=== PATIENT | female | born 1965 | race Caucasian/White ===

== ENCOUNTER 2023-10-10 08:36 | Emergency (ER) | payer MEDICARE, SELFPAY ==
[2023-10-10 08:36] VITALS: BP 197/96; PULSE 75; RESP 18; TEMP 37; O2SAT 95; BMI 31.6
--- NOTE | 2023-10-10 08:45 | PC.NURSE ---
Dr. Gonzalez at BS for pt eval
--- NOTE | 2023-10-10 08:50 | PC.NURSE ---
pt reports recently moving here and is unable to tell us much about her health history or medications she takes. er aware.
[2023-10-10 09:02] LABS: Basophils % 0.5 % (0.1-2.0); Eosinophils # 0.2 K/mm3 (0.0-0.4); Eosinophils % 2.9 % (0.1-12.0); Hematocrit 44.2 % (37.0-47.0); Hemoglobin 14.8 g/dL (12.2-16.2); Lymphocytes # 1.3 K/mm3 (0.7-4.5); Lymphocytes % 22.4 % (10-50); Mean Corpuscular HGB Conc 33.5 g/dL (31.8-35.4); Mean Corpuscular Hemoglobin 27.3 pg (27.0-31.2); Mean Corpuscular Volume 81.4 fl (81-99); Monocytes # 0.3 K/mm3 (0.1-1.0); Monocytes % 5.6 % (1.7-9.3); Neutrophils % 68.5 % (37.0-80.0); Platelet Count 206 K/mm3 (142-424); Red Blood Count 5.43 M/mm3 (4.20-5.40); Red Cell Distribution Width 15.2 % (11.5-17.5); White Blood Count 5.8 K/mm3 (4.8-10.8)
[2023-10-10 09:10] LABS: Alanine Aminotransferase 25 U/L (12-78); Alkaline Phosphatase 67 U/L (38-126); Aspartate Amino Transferase 31 U/L (14-36); Bilirubin,Total 0.5 mg/dl (0.2-1.3); Blood Urea Nitrogen 13 mg/dl (7-17); Carbon Dioxide 26 mmol/L (22.0-30.0); Chloride 104 mmol/L (98-107); Creatinine Clearance Estimated 100 mL/min (50-200); Estimated Glomerular Filt Rate 65 ml/min (>60); GFR (African American) 78 ML/MIN (>60)
[2023-10-10 09:13] LABS: Albumin Level 4.4 g/dl (3.5-5.0); Albumin/Globulin Ratio 1.5 (1.1-1.8); Anion Gap 12.3 mEq/L (5-15); Calcium 8.6 mg/dl (8.4-10.2); Glucose 179 mg/dl (74-100); Potassium 4.3 mmoL/L (3.5-5.1); Sodium 138 mmol/L (136-145); Total Protein,Serum 7.4 g/dl (6.3-8.2)
[2023-10-10 09:16] LABS: C-Reactive Protein 10.2 mg/L (0-4)
--- NOTE | 2023-10-10 09:17 | HMH.EDGENADL ---
Discharge Plan Disposition Patient Disposition: Home, Self-Care Chief Complaint: PAIN Referrals Follow up/Referrals: Provider,MD Christopher [Primary Care Provider] - See instructions Fermin Kowalski MD [Staff Physician] - See instructions Activity Restrictions/Add. Instructions Additional Instructions/Restrictions: Contact Dr. Kowalski for information regarding rectal scope. Until that time, take 1 capful of MiraLAX (polyethylene glycol) daily until having stools the consistency of toothpaste. Call your family doctor to establish care for this visit to the emergency department and schedule follow-up within 48 hours to ensure improvement. If you have any worsening of your condition or any other concerning signs or symptoms, return to the emergency department or your primary care doctor for further evaluation. Clinical Impressions Clinical Impression: Rectal bleed Discharge ED Provider: Jaime Gonzalez General Adult HPI General Chief complaint: PAIN Stated complaint: pain Time Seen by Provider: 10/10/23 08:41 Mode of Arrival: Ambulatory Source of Information: Patient Limitations: No Limitations Description of Symptoms (Recalled from ER Triage Doc. by RN): pt reports rectal bleeding that started yesterday, along with pain in her rectum that has been gradually getting worse, and unable to have a BM for 4 days, states she has taken several medications to try to help with no success History of Present Illness HPI narrative: 58-year-old female with history of left-sided CVA with residual expressive aphasia currently on Eliquis presenting with rectal bleeding. With help of licensed club manager at bedside, history obtained. Patient has been having rectal bleeding for about 5 days. Not getting better, not getting worse. She is also having pain with bowel movements since that time. Having minimal pain in the absence of having bowel movement, generally pain is with bowel movements. She is having small, hard stools, but still able to have bowel movements. No fevers, chills, vomiting, or abdominal pain. States that rectal bleeding is not coming down clots, it is dark red, not melena. No lightheaded, chest pain, shortness of breath, syncope, or any other concerns. Related Data Allergies Allergy/AdvReac Type Severity Reaction Status Date / Time No Known Allergies Allergy Verified 10/10/23 08:49 [facility] Disclaimer: The information contained in this section may have been updated after the patient was seen, as this information can be updated by other users. Medical History (Updated 10/10/23 @ 10:03 by Jaime Gonzalez MD) 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, type 2 Heart failure Hypertension Kidney disease Social History Smoking Status: Never smoker alcohol intake: never current occupational status: unemployed Travel in the last 8 weeks: None ROS Obtained: Yes All systems reviewed & no additional complaints except as documented Physical Exam General General appearance: alert and in no apparent distress Head Head exam: atraumatic and normocephalic Eye Eye exam: Present normal appearance, PERRL and EOMI ENT ENT exam: Present mucous membranes moist Neck Neck exam: Present normal inspection, full ROM and trachea midline Respiratory Respiratory exam: Present normal lung sounds bilaterally; Absent respiratory distress, wheezes, stridor, accessory muscle use or prolonged expiratory phase Cardiovascular Cardiovascular exam: Present regular rate and normal rhythm Abdominal Exam Abdominal exam: Present soft; Absent distention, tenderness, guarding, rebound, rigidity or normal bowel sounds Rectal Exam Rectal exam: Present heme (-) stool (Grossly negative, Hemoccult sent), hemorrhoids (Internal hemorrhoid), tenderness and other (No evidence of fluctuance. No obvious fissure.) Extremities Exam Extremities exam: Absent edema Neurological Exam Neurological exam: Present alert, oriented X3, CN II-XII intact and normal gait; Absent motor sensory deficit Skin Skin exam: Present warm and dry; Absent diaphoresis or erythema Medical Decision Making Medical Records Medical records reviewed: Yes I reviewed the patient's medical records. Chandan Inquiry Pt receiving controlled substance: No Chandan was queried for this patient: No Vital Signs: 10/10/23 08:36 10/10/23 09:19 10/10/23 09:31 Temperature 98.6 F Temperature Source Oral Pulse Rate 59 L 66 Pulse Rate [Left Radial] 75 Respiratory Rate 18 18 20 Blood Pressure 155/92 H 150/90 H Blood Pressure [Right Arm] 197/96 H Blood Pressure Mean 113 110 Blood Pressure Mean [Right Arm] 129 Blood Pressure Source [Right Arm] Automatic Cuff Blood Pressure Position [Right Arm] Sitting 02 Sat by Pulse Oximetry 95 97 95 Oxygen Delivery Method Room Air Lab Data Lab Results 10/10/23 08:43: WBC 5.8, RBC 5.43 H, Hgb 14.8, Hct 44.2, MCV 81.4, MCH 27.3, MCHC 33.5, RDW 15.2, Plt Count 206, MPV 8.0, Neut % (Auto) 68.5, Lymph % (Auto) 22.4, [place] % (Auto) 5.6, Eos % (Auto) 2.9, Baso % (Auto) 0.5, Neut # (Auto) 4.0, Lymph # (Auto) 1.3, [place] # (Auto) 0.3, Eos # (Auto) 0.2, Baso # (Auto) 0.0, ESR 19, Sodium 138, Potassium 4.3, Chloride 104, Carbon Dioxide 26, Anion Gap 12.3, BUN 13, Creatinine 0.90, Estimated Creat Clear 100, Estimated GFR 65, Est GFR ( Amer) 78, Glucose 179 H, Calcium 8.6, Total Bilirubin 0.5, AST 31, ALT 25, Alkaline Phosphatase 67, C-Reactive Protein 10.2 H, Total Protein 7.4, Albumin 4.4, Globulin 3.0, Albumin/Globulin Ratio 1.5 10/10/23 09:01: Stool Occult Blood Negative 10/10/23 08:43 10/10/23 08:43 Orders (Tests/Meds): ORDERS Category Date Time Status CBC w/Auto Diff [Complete Blood Count Auto Diff] Stat Lab 10/10/23 08:43 Completed CMP [Comprehensive Metabolic Panel] Stat Lab 10/10/23 08:43 Completed CRP [C-Reactive Protein] Stat Lab 10/10/23 08:43 Completed ESR [Erythrocyte Sedimentation Rate] Stat Lab 10/10/23 08:43 Completed Occult Blood,Stool Stat Lab 10/10/23 09:01 Completed Medical Decision Narrative: 58-year-old female with history of left-sided CVA with residual expressive aphasia currently on Eliquis presenting with rectal bleeding. With help of licensed club manager at bedside, history obtained. Patient has been having rectal bleeding for about 5 days. Not getting better, not getting worse. She is also having pain with bowel movements since that time. Having minimal pain in the absence of having bowel movement, generally pain is with bowel movements. She is having small, hard stools, but still able to have bowel movements. No fevers, chills, vomiting, or abdominal pain. States that rectal bleeding is not coming down clots, it is dark red, not melena. No lightheaded, chest pain, shortness of breath, syncope, or any other concerns. History was obtained via conversation with patient and licensed club manager. On arrival, patient hemodynamically stable, alert, oriented x4, appropriate, GCS 15, moving all extremities spontaneously, pupils equal and reactive to light. Full physical exam performed and significant for no abdominal tenderness. Patient afebrile, nontachycardic, normotensive. Rectal exam without fluctuance, but is tender. Internal hemorrhoid. No gross blood per rectum, but Hemoccult sent. Differential includes hemorrhoid, diverticulosis, polyp, fissure, IBD, IBS, among others. Workup independently interpreted and significant for nonactionable hemoglobin at 14.8. Chemistry normal. ESR and CRP negative. Hemoccult negative. CTA of the abdomen/pelvis was considered, but deemed unnecessary due to hemodynamically stable with normal hemoglobin and no active bleed given Hemoccult negative stool. On reevaluation, patient resting comfortably bed. Given patient presentation, workup, history, this most likely represents a polyp versus hemorrhoid bleed. I feel that it is incredibly unlikely that patient has life-threatening bleed given stable hemodynamics and duration of symptoms, as well as negative workup. Because patient at baseline without signs or symptoms of clinical decompensation, deemed appropriate for discharge. Results were relayed to patient who voiced understanding and were agreeable to outpatient management and follow up. At the time of discharge the patient was hemodynamically stable, tolerating PO, voiding spontaneously, normal bowel function, mobilizing appropriately. Critical Care Critical Care Time Critical Care Time: No
[2023-10-10 09:19] VITALS: BP 155/92; PULSE 59; RESP 18; O2SAT 97
[2023-10-10 09:31] VITALS: BP 150/90; PULSE 66; RESP 20; O2SAT 95
[2023-10-10 09:35] LABS: Erythrocyte Sedimentation Rate 19 mm/hr (0-30)
[2023-10-10 09:51] LABS: Occult Blood,Stool Negative (Negative)
[2023-10-10 10:00] VITALS: BP 148/89; PULSE 59; RESP 18; O2SAT 97
--- NOTE | 2023-10-10 10:05 | PC.NURSE ---
Dr. Gonzalez at BS to update pt/visitor on results and POC
[2023-10-10 10:14] VITALS: BP 153/93; PULSE 69; RESP 18; TEMP 36.7; O2SAT 94
== END 2023-10-10 10:14 | disposition home or self-care (01) ==
PROVIDERS: Emergency Provider Emergency Medicine
DX: K62.5 Hemorrhage of anus and rectum (principal); K62.89 Other specified diseases of anus and rectum; I69.320 Aphasia following cerebral infarction; E11.9 Type 2 diabetes mellitus without complications; I11.0 Hypertensive heart disease with heart failure; I50.9 Heart failure, unspecified; N28.9 Disorder of kidney and ureter, unspecified; Z79.01 Long term (current) use of anticoagulants
CPT/HCPCS: 80053; 82272; 85025; 85651; 86140; 99283; G0328

== ENCOUNTER → 2023-10-21 23:00 | Outpatient (CLI) | payer MEDICARE, OTHER, SELFPAY ==
[2023-10-21 18:40] LABS: Basophils % 0.4 % (0.1-2.0); Eosinophils # 0.2 K/mm3 (0.0-0.4); Eosinophils % 2.5 % (0.1-12.0); Hematocrit 42.7 % (37.0-47.0); Hemoglobin 14.3 g/dL (12.2-16.2); Lymphocytes # 1.4 K/mm3 (0.7-4.5); Lymphocytes % 24.3 % (10-50); Mean Corpuscular HGB Conc 33.4 g/dL (31.8-35.4); Mean Corpuscular Volume 83.8 fl (81-99); Mean Platelet Volume 8.3 fl (7.4-10.4); Monocytes # 0.2 K/mm3 (0.1-1.0); Neutrophils # 4.1 K/mm3 (1.8-7.8); Neutrophils % 68.8 % (37.0-80.0); Platelet Count 225 K/mm3 (142-424); Red Cell Distribution Width 15.2 % (11.5-17.5); White Blood Count 5.9 K/mm3 (4.8-10.8)
[2023-10-21 18:53] LABS: Hemoglobin A1C 7.1 % (4.0-6.0)
[2023-10-21 18:59] LABS: Alanine Aminotransferase 24 U/L (12-78); Albumin Level 4.3 g/dl (3.5-5.0); Albumin/Globulin Ratio 1.6 (1.1-1.8); Alkaline Phosphatase 66 U/L (38-126); Anion Gap 13.3 mEq/L (5-15); Aspartate Amino Transferase 28 U/L (14-36); Bilirubin,Total 0.5 mg/dl (0.2-1.3); Blood Urea Nitrogen 17 mg/dl (7-17); Calcium 8.7 mg/dl (8.4-10.2); Carbon Dioxide 24 mmol/L (22.0-30.0); Chloride 104 mmol/L (98-107); Chol/HDL Ratio 5.8 (1-3.5); Cholesterol 168 mg/dl (140-200); Estimated Glomerular Filt Rate 65 ml/min (>60); GFR (African American) 78 ML/MIN (>60); Globulin 2.7 g/dL (1.3-3.2); Glucose 304 mg/dl (74-100); HDL Cholesterol 29 mg/dl (40-60); Potassium 4.3 mmoL/L (3.5-5.1); Sodium 137 mmol/L (136-145)
[2023-10-21 19:10] LABS: Direct LDL Cholesterol 83.02 mg/dL (100-129)
[2023-10-21 19:16] LABS: Triglycerides 429 mg/dl (30-150)
[2023-10-21 19:17] LABS: 25-OH Vitamin D, Total 59.5 ng/mL (30-100)
[2023-10-21 19:30] LABS: Thyroid Stimulating Hormone 0.59 uIU/mL (0.465-4.68)
[2023-10-24 14:25] LABS: Levetiracetam (Keppra) 10.9 ug/mL (10.0-40.0)
== END ==
PROVIDERS: PCP Physician Assistant; Visit Provider Physician Assistant
DX: E11.9 Type 2 diabetes mellitus without complications (principal); Z86.73 Personal history of transient ischemic attack (TIA), and cerebral infarction without residual deficits; E66.9 Obesity, unspecified; Z68.32 Body mass index [BMI] 32.0-32.9, adult; Z79.4 Long term (current) use of insulin; Z79.899 Other long term (current) drug therapy
CPT/HCPCS: 80053; 80061; 80177; 82306; 83036; 84443; 85025

== ENCOUNTER → 2023-10-30 13:06 | Outpatient (CLI) | payer MEDICARE, OTHER, SELFPAY | PROVIDERS: PCP Physician Assistant; Visit Provider Physician Assistant | DX: N89.8 Other specified noninflammatory disorders of vagina (principal); R82.90 Unspecified abnormal findings in urine; B96.89 Other specified bacterial agents as the cause of diseases classified elsewhere | CPT/HCPCS: 87086; 87210 ==

== ENCOUNTER → 2023-11-06 14:44 | Outpatient (CLI) | payer MEDICARE, OTHER, SELFPAY ==
--- NOTE | 2023-11-06 14:44 | CT_ITS ---
FINAL REPORT TECHNIQUE: Axial CT images were performed through the head. Coronal reformatted images were submitted. This study was performed with techniques to keep radiation doses as low as reasonably achievable (ALARA). Individualized dose reduction techniques using automated exposure control or adjustment of mA and/or kV according to the patient's size were employed. CLINICAL HISTORY: history of stroke, eliquis, r/o bleed before proce COMPARISON: none FINDINGS: The ventricles are normal in size. There is encephalomalacia seen in the anterior left temporal lobe, lateral left temporal lobe, and left posterior parietal lobe. Ex vacuo dilatation is noted in the left lateral ventricle. There is linear increased density in the region of encephalomalacia. 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 There is no mass or edema identified. There is no abnormal extra-axial fluid seen. There is complete opacification left maxillary sinus with retention cyst or polyp in the right maxillary sinus. 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 Unfortunately, no prior for comparison to confirm. Consider follow-up CT. Reviewed, Interpreted and Dictated by Prakash Galeano MD Transcribed by Nazanin Lanier Authenticated and [facility]
== END ==
PROVIDERS: PCP Physician Assistant; Visit Provider Physician Assistant
DX: R47.01 Aphasia (principal); Z86.73 Personal history of transient ischemic attack (TIA), and cerebral infarction without residual deficits
CPT/HCPCS: 70450

== ENCOUNTER 2023-11-07 07:12 | Day surgery (SDC) | payer MEDICARE, OTHER, SELFPAY ==
[2023-11-05 13:07] VITALS: BMI 30.7
[2023-11-07] MEDS: LACTATED RINGERS 1000ML 1,000 ML 25 ML IV (07:28)
[2023-11-07 07:35] VITALS: BP 134/94; PULSE 75; RESP 18; TEMP 36.2; O2SAT 92
--- NOTE | 2023-11-07 07:45 | P.PNANES_ITS ---
[facility] Disclaimer: The information contained in this section may have been updated after the patient was seen, as this information can be updated by other users. Medical History 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, type 2 Heart failure History of stroke Hypertension Kidney disease Surgical History History of colonoscopy Hx of hysterectomy Hx of total thyroidectomy Family History Father Heart disease Mother Stroke Social History Smoking Status: Never smoker alcohol intake: never substance use type: denies use current occupational status: unemployed Travel in the last 8 weeks: None [facility] Anesthesia Checklist Patient Identification Patient Identification: Arm Band and Verbal (Name & ) Structural Data Admitted From: Home Planned Operative Procedure/s: Colonoscopy Consent for Planned Operative Procedure(s) Verified: Yes NPO Status Verified Time NPO: 00:00 Additional verifications Anesthesia Reactions: No Airway Assessment Mallampati Score:: Class II C-Spine Mobility Assessed: Yes TMJ Mobility Assessed: Yes Dentition: Poor Dentition Neurological Assessment Level of Consciousness: Awake Hx Seizures: No Numbness or tingling in extremities: No Anesthesia Plan Anesthesia Risk discussed: Yes Anesthesia Plan: Verified ASA Class: III Anesthesia Type: MAC
[2023-11-07 07:46] LABS: POC Glucose,Bedside 182 (70-110)
--- NOTE | 2023-11-07 08:54 | P.PCN_ITS ---
Procedure: Date: 11/07/23 Patient Date of :: 1965 Procedure Performed:: Total colonoscopy to terminal ileum with polypectomy using cold snare, hot snare Indications:: Patient is a 58-year-old female referred by the emergency department for rectal bleeding. She was seen in the emergency department on 10/10/2023 with several days of obstipation and rectal pain. Patient has history of left-sided CVA with expressive aphasia on Eliquis. [place]. ER evaluation revealed no gross blood on rectal examination. She was Hemoccult negative. There were findings of internal hemorrhoid. Patient was managed as an outpatient through the emergency department and given bowel regimen of MiraLAX and asked to follow-up for scope. Her symptoms have somewhat improved. She did have a colonoscopy many many years ago. Performing Provider:: Fermin Kowalski MD Referring Provider:: Margoth Brand Sedation:: MAC sedation Procedure:: Patient history was obtained and appropriate physical examination was performed. Patient's medications and allergies were reviewed. Informed consent was obtained after explaining the benefits, alternatives, and risks of the procedure including, but not limited to, bleeding, perforation, missed lesions, and adverse reaction to anesthesia medications. Patient was transported to endoscopy procedure room. Patient was connected to monitoring devices. Throughout the procedure the patient's blood pressure, pulse, and oxygen saturations were monitored continuously. Patient identification and planned procedure were verified by the staff. Patient was positioned in lateral decubitus position. Digital anorectal exam was performed. Variable stiffness Olympus colonoscope was inserted and advanced under direct visualization to the cecum. Adequacy of the colonic preparation was noted. The colonoscope was advanced a short distance into the terminal ileum. The colonoscope was then slowly withdrawn while carefully examining the color, texture, anatomy, and integrity of the mucosoa circumferentially. Within the rectum retroflexion was performed. Colonoscope was then withdrawn. . She had some redundancy and floppiness of the sigmoid colon with it being rather atonic. Ultimately the colonoscope was advanced to the cecum. Within the appendiceal orifice Meghana, there was a small adenomatous appearing polyp removed with cold snare. Just past the hepatic flexure and the proximal transverse colon there was a tiny diminutive polyp partially removed with cold snare and residual polyp removed with biopsy forceps. In the distal rectum ther e was a moderate adenomatous polyp removed with hot snare. Surrounding polypectomy tissue was biopsied to ensure complete removal. There was some minor oozing and Hemoclip was deployed for good hemostasis. Retroflexion revealed internal hemorrhoid cushions. She had evidence of prolapse. No evidence of any inflamed hemorrhoid cushion amenable to banding. Colonoscope was withdrawn. . Findings:: Redundancy and atony of the sigmoid colon Small adenomatous appendiceal polyp Tiny diminutive polyp distal to the hepatic flexure Left-sided diverticulosis Moderate distal rectal adenomatous polyp removed with hot snare, surrounding tissue biopsy, Hemoclip deployed Prolapsing circumferential nonbleeding internal hemorrhoids Recommendations:: Transient hemorrhoid bleeding likely from combination of constipation with prolapsing hemorrhoids and anticoagulation. This seems to have resolved at this time. May benefit from bowel regimen and possible nonoperative hemorrhoid treatment if recurrent. Repeat colonoscopy pending pathology. If the tissue biopsied around the rectal polyp is adenomatous likely repeat colonoscopy in 1 year. However, otherwise likely repeat colonoscopy 3 years. Of course this is pending pathology. Complications:: None immediately apparent Estimated blood obtained (mL): 3 Colonoscopy Component Colonoscopy Component Was a colonoscopy performed during today's procedure?: Yes Recommended follow up colonoscopy of at least 10 years?: No If no, follow up colonoscopy recommended in ___ years?: See above Reason for not recommending >/= 10 yr follow-up interval?: See above
[2023-11-07 08:55] VITALS: BP 143/83; PULSE 86; RESP 16; TEMP 36.8; O2SAT 91
[2023-11-07 09:05] VITALS: BP 124/80; PULSE 65; RESP 16; O2SAT 98
[2023-11-07 09:15] VITALS: BP 115/78; PULSE 68; RESP 18; O2SAT 95
[2023-11-07 09:25] VITALS: BP 124/84; PULSE 70; RESP 18; O2SAT 95
== END 2023-11-07 09:30 | disposition home or self-care (01) ==
PROVIDERS: PCP Physician Assistant; Visit Provider Surgery
PROC: 0DJD8ZZ Inspection of Lower Intestinal Tract, Via Natural or Artificial Opening Endoscopic (ICD-10-PCS; CPT 45385; principal; 2023-11-07 08:30)
DX: K62.5 Hemorrhage of anus and rectum (principal); K57.30 Diverticulosis of large intestine without perforation or abscess without bleeding; K64.8 Other hemorrhoids; D12.0 Benign neoplasm of cecum; D12.3 Benign neoplasm of transverse colon; D12.8 Benign neoplasm of rectum; E11.9 Type 2 diabetes mellitus without complications
CPT/HCPCS: 45385; 82962; J2704

== ENCOUNTER 2023-12-03 10:42 | Outpatient (CLI) | payer MEDICARE, OTHER, SELFPAY ==
--- NOTE | 2023-12-03 10:43 | FL_ITS ---
FINAL REPORT CLINICAL HISTORY: 203.24 dap 1.54 fluoro time DYSPHAGIA FINDINGS: MODIFIED BARIUM SWALLOW History: Dysphagia FINDINGS: Fluoroscopy was provided for the speech pathologist to evaluate the swallowing mechanism. The patient was given several different consistencies of barium while the swallow was visualized fluoroscopically. The report of the speech pathologist should be consulted prior to making dietary decisions. IMPRESSION: Modified barium swallow under fluoroscopic guidance. Please see the report of the speech pathologist for Dietary recommendations. Films reviewed , interpreted and dictated by Dr. Maloney Transcribed by Rafy Wise PA-C. Reviewed, Interpreted and Dictated by Fermin Maloney III, MD Transcribed by REILLY Czaares Authenticated and . [facility]
--- NOTE | 2023-12-03 13:02 | HMH.SLMBS2 ---
Speech & Language Evaluation Speech/Language Mod Barium Swallow Start: 12/03/23 12:54 Freq: once Status: Complete Protocol: Document 12/03/23 12:54 VICK (Rec: 12/03/23 13:02 VICK [id number]) General Information General Current Food Consistancy Regular,Thin Liquids Dentition Good Dentition Oxygen Status Room Air Ability to Follow Directions Good Communication Ability Moderate Impairment MBS Recommendations Diet Dietary Recommendations Regular,Thin Liquids Treatment/Strategies Strategy/Precaution Recommend Sitting Upright (90 deg),No Straw Mod Barium Swallow Impressions Summary and Impressions Oral Phase Impression Minimal Impairment Oral Phase Summary Minimal impairment of the oral phase premature spillage of liquids with a straw, as well as limited tongue movement to assist oral transit of barium tablet was also observed and she required multiple subsequent sips of a solid to transfer bolus into the pharyngeal phase. No oral residual was noted across trials. Pharyngeal Phase Impression Minimal Impairment Pharyngeal Phase Summary Minimal impairment of the pharyngeal phase of the swallow 2' premature spillage, A/P spills with liquids with a straw. No s/sxs of aspiration observed throughout the instrumental. Speech/Language MBS Assessment/Goals/Plan Assessment Date of Evaluation: 12/03/23 Evaluation Type Initial Certification Assessment/Problems dysphagia per MD order. Does Patient Qualify for Service No Qualify/Failure Comment Based on instrumental assessment, no further skilled speech therapy services are warranted at this time, so long as pt adheres to compensatory strategies, aspiration precautions, and recommended diet. Recommendations PHYSICIAN CERTIFICATION: The specified therapy services are required, authorized, and reviewed every 30 days. Diet Recommendations Normal Liquid Type Recommendations Normal/Thin SL Swallow Guidelines Standard Aspiration Prec. Crush Meds Small OK/Crush large pill Dysphagia Swallow Precautions/Strategies No Straw,Small Bites and Sips, Alternate Liquids/Solids Plan Pt/Guardian verbally ack understanding Yes of dx/prognosis/goals G -code Required No Education Instructions provided Discussed assessment results, diet recommendations, aspiration precautions, and compensatory strategies to use with patient who expressed understanding. ROLL FORMING SUPERVISOR also provided walkthrough of educational handouts. Pt/Caregiver able to recall information Able to recall/restate Reinforcement needed No Mod Barium Swallow Setup Exam Setup Radiologist Fermin Maloney Level of Consciousness Awake,Alert,Appropriate, Follows Commands Mod Barium Swallow-Lat View Textures Lateral View Food Presentation Thin Liquid via Cup,Thin Liquid via Straw,Pureed Food- Thin,Mech. Soft Food- Regular, Barium Tablet,Regular Food, Pudding,Mixed Comment Mechanical soft: nutrigrain bar puree: applesauce regular: leona cracker mixed: peaches with juice Oral Phase Labial Closure No Impairment (WFL) Bolus Formation Pooling L/R No Impairment (WFL) Bolus Formation under Tongue No Impairment (WFL) Bolus Formation Scattered Loss No Impairment (WFL) Mastication Rotary Chew No Impairment (WFL) Mastication Munching No Impairment (WFL) Mastication Lateralization No Impairment (WFL) Lingual Movement Minimal Impairment Residue Clearing No Impairment (WFL) Pharyngeal Phase A/P Lingual Propulsion Spills Minimal Impairment Swallow Response Delay Minimal Impairment Base of Tongue Minimal Impairment Epiglottic Coverage No Impairment (WFL) Laryngeal Elevation Minimal Impairment Vallecular Retention Clearing No Impairment (WFL) Pharyn. Wall Residue Clearing No Impairment (WFL) Piriform Sinus Retention No Impairment (WFL) Aspiration? No Silent aspiration? No Mod Barium Swallow-AP View Performed Mod Barium Swallow A/P View Test Not Applicable/Performed PHYSICIAN CERTIFICATION: I certify the specified therapy services for Salena Dave are required, authorized, and reviewed every 30 days.
== END 2023-12-03 23:59 | disposition home or self-care (01) ==
LOC: RAD 10:43
PROVIDERS: PCP Physician Assistant; Visit Provider Physician Assistant
DX: R47.01 Aphasia (principal); Z86.73 Personal history of transient ischemic attack (TIA), and cerebral infarction without residual deficits
CPT/HCPCS: 70371; 92611

== ENCOUNTER 2023-12-17 14:38 | Outpatient (CLI) | payer MEDICARE, OTHER, SELFPAY ==
--- NOTE | 2023-12-17 14:38 | CT_ITS ---
FINAL REPORT CLINICAL HISTORY: abnormal CT, history of stroke 2020 COMPARISON: 11/06/2023 FINDINGS: Extensive encephalomalacia is seen of the left hemisphere in the left MCA territory. 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 Moderate atrophy and chronic ischemic white matter changes are noted. No cortical edema is present. There is no mass or hemorrhage. Ventricles are asymmetrically enlarged on the left attributed to ex vacuo changes. Bone windows show no skull fracture or obvious obstructive lesion. IMPRESSION: 1. No acute intracranial abnormality or obvious mass. 2. Atrophy and chronic ischemic white matter changes as above. 3. Stable chronic left MCA infarct Authenticated and ERN
== END 2023-12-17 23:59 | disposition home or self-care (01) ==
LOC: RAD 14:38
PROVIDERS: PCP Physician Assistant; Visit Provider Physician Assistant
DX: R58 Hemorrhage, not elsewhere classified (principal); Z86.73 Personal history of transient ischemic attack (TIA), and cerebral infarction without residual deficits
CPT/HCPCS: 70450

== ENCOUNTER 2024-01-15 22:15 | Outpatient (CLI) | payer MEDICARE, OTHER, SELFPAY | END 2024-01-15 23:59 | disposition home or self-care (01) | LOC: LAB.DROPOF 22:15 | PROVIDERS: PCP Family Medicine; Visit Provider Family Medicine | DX: N39.0 Urinary tract infection, site not specified (principal); B96.89 Other specified bacterial agents as the cause of diseases classified elsewhere; R35.0 Frequency of micturition; R32 Unspecified urinary incontinence | CPT/HCPCS: 87086 ==

== ENCOUNTER 2024-01-27 19:42 | Emergency (ER) | payer MEDICARE, OTHER, SELFPAY ==
[2024-01-27] VITALS (9 sets, daily range): BP systolic 138–166; BP diastolic 83–88; PULSE 62–74; RESP 12–22; TEMP 36.6–36.7; O2SAT 92–96; BMI 30.1
--- NOTE | 2024-01-27 19:44 | ECG_ITS ---
APPROVED REPORT Exam: Resting ECG HR:63 bpm ECG Measurements Heart Rate 63 AXES NE 181 P 36 QRSd 102 QRS -22 QT 388 T 79 QTc 395 Conclusion SINUS RHYTHM BORDERLINE LEFT AXIS DEVIATION [QRS AXIS < -20] NONSPECIFIC T-WAVE ABNORMALITY BORDERLINE ECG INTERPRETATION BASED ON A DEFAULT AGE OF 41 YEARS UNCONFIRMED REPORT Electronically signed by : LAWSON YOUNG, 01/27/2024 23:47:27
--- NOTE | 2024-01-27 19:58 | XR_ITS ---
PROCEDURE INFORMATION: Exam: XR Chest Exam date and time: 01/27/2024 8:01 PM Age: 58 years old Clinical indication: Pain; Chest pressure; Additional info: L cp TECHNIQUE: Imaging protocol: Radiologic exam of the chest. Views: 2 views. COMPARISON: RF FL BARIUM SWALLOW MODIFIED 12/03/2023 11:05 AM FINDINGS: Lungs: Mild right perihilar infiltrate. Left lung appears clear. Pleural spaces: Unremarkable. No pleural effusion. No pneumothorax. Heart/Mediastinum: Unremarkable. No cardiomegaly. Bones/joints: Unremarkable. IMPRESSION: Mild right perihilar infiltrate
[2024-01-27 20:20] LABS: Basophils # 0.1 K/mm3 (0-0.2); Basophils % 1.4 % (0.1-2.0); Eosinophils # 0.2 K/mm3 (0.0-0.4); Eosinophils % 3.6 % (0.1-12.0); Hematocrit 42.5 % (37.0-47.0); Hemoglobin 13.9 g/dL (12.2-16.2); Lymphocytes # 1.8 K/mm3 (0.7-4.5); Lymphocytes % 31.4 % (10-50); Mean Corpuscular HGB Conc 32.8 g/dL (31.8-35.4); Mean Corpuscular Hemoglobin 28.4 pg (27.0-31.2); Mean Corpuscular Volume 86.4 fl (81-99); Mean Platelet Volume 7.8 fl (7.4-10.4); Monocytes # 0.3 K/mm3 (0.1-1.0); Monocytes % 4.4 % (1.7-9.3); Neutrophils # 3.4 K/mm3 (1.8-7.8); Neutrophils % 59.3 % (37.0-80.0); Platelet Count 215 K/mm3 (142-424); Red Blood Count 4.92 M/mm3 (4.20-5.40); White Blood Count 5.7 K/mm3 (4.8-10.8)
--- NOTE | 2024-01-27 20:20 | ED_ITS ---
Discharge Plan Disposition Patient Disposition: Home, Self-Care Condition: Good Prescriptions Prescriptions: No Action Eliquis 5 mg tablet 5 mg PO BID Qty: 180 0RF glimepiride 4 mg tablet 4 mg PO DAILY Qty: 90 3RF losartan 100 mg tablet 100 mg PO DAILY Qty: 90 3RF levothyroxine [Synthroid] 50 mcg tablet 50 mcg PO DAILY Qty: 90 3RF rosuvastatin 20 mg tablet 20 mg PO QHS insulin lispro 100 unit/mL insulin pen 10 unit SQ TID Patient Comments: INJECT 10 UNITS SUBCUTANEOUSLY THREE TIMES DAILY DIRECTED insulin asp prt-insulin aspart [Novolog Mix 70-30FlexPen U-100] 100 unit/mL (70-30) insulin pen 18 unit SQ BID Qty: 15 2RF Rx Instructions: Use with 2 largest meals of the day insulin glargine [Lantus Solostar U-100 Insulin] 100 unit/mL (3 mL) insulin pen 30 unit SQ HS Qty: 15 2RF Ozempic 1 mg/dose (4 mg/3 mL) pen injector 1 mg SQ WEEKLY Qty: 3 2RF pregabalin [Lyrica] 25 mg capsule 25 mg PO BID Qty: 60 2RF fluconazole 150 mg tablet 150 mg PO Q3D Qty: 3 0RF escitalopram oxalate 5 mg tablet 5 mg PO DAILY Qty: 90 3RF carvedilol 12.5 mg tablet 12.5 mg PO BID Qty: 180 0RF Rx Instructions: must administer with a meal/food levetiracetam 500 mg tablet 500 mg PO BID Qty: 180 0RF ergocalciferol (vitamin D2) 1,250 mcg (50,000 unit) capsule 1,250 mcg PO WEEKLY Qty: 14 3RF nitrofurantoin macrocrystal 100 mg capsule 100 mg PO BID Qty: 20 0RF Rx Instructions: must administer with a meal/food Referrals Follow up/Referrals: Margoth Brand PA [Primary Care Provider] - See instructions Activity Restrictions/Add. Instructions Additional Instructions/Restrictions: You have been evaluated in the ED for your complaints. You may follow-up with your PCP in the next 3 to 5 days. Please return to ED for any new or worsening symptoms. Clinical Impressions Clinical Impression: Chest pain Qualifiers: Chest pain type: unspecified Qualified Code(s): R07.9 - Chest pain, unspecified Discharge ED Provider: Cristo Browning [facility] General Chief Complaint: Chest Pain Stated Complaint: Chest pain Time Seen by Provider: 01/27/24 19:48 Mode of Arrival: Ambulatory Source of Information: Patient Limitations: Language Barrier Description of Symptoms (Recalled from ER Triage Doc. by RN): Patient reports left chest pain that started approximately 1pm today while eating lunch. Left arm pain started approximately 1900 and has remained since. Patient has baseline aphasia after a CVA in 2020. Family at bedside providing history. History of Present Illness HPI narrative: 58-year-old female with past medical history significant for CVA, CHF, CKD, DM2, HTN, presents today for evaluation concerning left-sided chest pain rating down to her left arm onset around 1 PM while she was eating. Pain has been intermittent since that time. She denies having any fevers, chills, shortness of breath, nausea, vomiting, abdominal pain or any other associated symptoms. Denies history of heart attack. Denies any recent illnesses. Denies any trauma. No further complaints. Related Data Home Medications Medication Instructions Recorded Confirmed insulin lispro 100 unit/mL 10 unit SQ TID 12/02/23 01/15/24 subcutaneous pen rosuvastatin 20 mg tablet 20 mg PO QHS 12/02/23 01/15/24 Previous Rx's Medication Instructions Recorded apixaban 5 mg tablet (Eliquis) 5 mg PO BID #180 tabs 10/21/23 glimepiride 4 mg tablet 4 mg PO DAILY #90 tabs 10/21/23 levothyroxine 50 mcg tablet 50 mcg PO DAILY #90 tabs 10/21/23 (Synthroid) losartan 100 mg tablet 100 mg PO DAILY #90 tabs 10/21/23 escitalopram oxalate 5 mg tablet 5 mg PO DAILY #90 tabs 10/22/23 insulin aspar prot-insulin aspart 18 unit (0.18 mL) SQ BID #15 mL 12/31/23 100 unit/mL (70-30) subcutaneous pen (Novolog Mix 70-30FlexPen U-100) insulin glargine 100 unit/mL (3 30 unit (0.3 mL) SQ HS #15 mL 12/31/23 mL) subcutaneous pen (Lantus Solostar U-100 Insulin) pregabalin 25 mg capsule (Lyrica) 25 mg PO BID #60 caps 12/31/23 semaglutide 1 mg/dose (4 mg/3 mL) 1 mg (0.75 mL) SQ WEEKLY #3 mL 12/31/23 subcutaneous pen injector (Ozempic) fluconazole 150 mg tablet 150 mg PO Q3D 2 doses #3 tabs 01/15/24 carvedilol 12.5 mg tablet 12.5 mg PO BID #180 tabs 01/23/24 ergocalciferol (vitamin D2) 1,250 1,250 mcg PO WEEKLY #14 caps 01/23/24 mcg (50,000 unit) capsule levetiracetam 500 mg tablet 500 mg PO BID #180 tabs 01/23/24 nitrofurantoin macrocrystal 100 mg 100 mg PO BID #20 caps 01/23/24 capsule Allergies Allergy/AdvReac Type Severity Reaction Status Date / Time No Known Allergies Allergy Verified 01/15/24 14:14 [facility] Disclaimer: The information contained in this section may have been updated after the patient was seen, as this information can be updated by other users. Medical History (Updated 01/27/24 @ 23:05 by Cristo Browning DO) Persistent complex bereavement disorder Adjustment disorder with depressed mood History of stroke Heart failure Kidney disease 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, type 2 Hypertension Surgical History Hx of total thyroidectomy Hx of hysterectomy History of colonoscopy Family History Father Heart disease Mother Stroke Social History Smoking Status: Unknown if ever smoked alcohol intake: never substance use type: denies use current occupational status: unemployed and disabled Travel in the last 8 weeks: None number of children: 4 ROS Obtained: Yes All systems reviewed & no additional complaints except as documented Physical Exam General General appearance: alert and in no apparent distress Head Head exam: atraumatic and normocephalic Eye Eye exam: Present normal appearance, PERRL and EOMI ENT ENT exam: Present normal oropharynx and mucous membranes moist Neck Neck exam: Present full ROM; Absent meningismus Respiratory Respiratory exam: Absent respiratory distress, wheezes, stridor or accessory muscle use Cardiovascular Cardiovascular exam: Present normal rhythm Abdominal Exam Abdominal exam: Present soft; Absent distention, tenderness, guarding, rebound or rigidity Neurological Exam Neurological exam: Present alert, oriented X3 and CN II-XII intact; Absent motor sensory deficit Psychiatric Psychiatric exam: Present normal affect and normal mood Skin Skin exam: Present warm and dry HEART Score HEART Score HEART Score assessment performed?: Yes History (anamnesis): Slightly suspicious ECG: Non-specific disturbance Age: 45-65 years Risk factors: 1-2 risk factors Troponin: </= normal limit HEART Score: 3 Critical Care Critical Care Time Critical Care Time: No Medical Decision Making Chandan Inquiry Pt receiving controlled substance: No Vital Signs Vital Signs: 01/27/24 19:47 01/27/24 20:00 01/27/24 20:30 Temperature 98.1 F Temperature Source Oral Pulse Rate 63 62 Pulse Rate [Left Radial] 66 Respiratory Rate 16 20 18 Blood Pressure 148/88 H 142/87 H Blood Pressure [Right Arm] 166/88 H Blood Pressure Mean Blood Pressure Mean [Right Arm] 114 Blood Pressure Source [Right Arm] Automatic Cuff Blood Pressure Position [Right Arm] Sitting 02 Sat by Pulse Oximetry 96 94 L 93 L Oxygen Delivery Method Room Air 01/27/24 21:00 01/27/24 21:30 01/27/24 21:45 Temperature Temperature Source Pulse Rate 63 66 74 Pulse Rate [Left Radial] Respiratory Rate 22 20 12 Blood Pressure 140/86 151/87 H Blood Pressure [Right Arm] Blood Pressure Mean Blood Pressure Mean [Right Arm] Blood Pressure Source [Right Arm] Blood Pressure Position [Right Arm] 02 Sat by Pulse Oximetry 95 94 L 92 L Oxygen Delivery Method 01/27/24 22:01 01/27/24 22:30 Temperature Temperature Source Pulse Rate 74 70 Pulse Rate [Left Radial] Respiratory Rate 16 12 Blood Pressure 149/85 H 138/86 Blood Pressure [Right Arm] Blood Pressure Mean 94 99 Blood Pressure Mean [Right Arm] Blood Pressure Source [Right Arm] Blood Pressure Position [Right Arm] 02 Sat by Pulse Oximetry 96 93 L Oxygen Delivery Method Room Air Room Air Lab Data Labs: Lab Results 01/27/24 19:47: WBC 5.7, RBC 4.92, Hgb 13.9, Hct 42.5, MCV 86.4, MCH 28.4, MCHC 32.8, RDW 15.0, Plt Count 215, MPV 7.8, Neut % (Auto) 59.3, Lymph % (Auto) 31.4, [place] % (Auto) 4.4, Eos % (Auto) 3.6, Baso % (Auto) 1.4, Neut # (Auto) 3.4, Lymph # (Auto) 1.8, [place] # (Auto) 0.3, Eos # (Auto) 0.2, Baso # (Auto) 0.1, Sodium 140, Potassium 3.9, Chloride 107, Carbon Dioxide 30, Anion Gap 6.9, BUN 17, Creatinine 1.00, Estimated Creat Clear 88, Estimated GFR 57 L, Est GFR ( Amer) 69, Glucose 171 H, Calcium 9.8, Total Bilirubin 0.8, AST 32, ALT 28, Alkaline Phosphatase 69, Troponin I < 0.01, NT-Pro-B Natriuret Pep 55.1, Total Protein 7.1, Albumin 4.3, Globulin 2.8, Albumin/Globulin Ratio 1.5 01/27/24 21:40: Troponin I < 0.01 01/27/24 19:47 01/27/24 19:47 Response Orders (Tests/Meds): ED MEDICATIONS Generic Name Dose Route Start Last Admin Trade Name Freq PRN Reason Stop Dose Admin Morphine Sulfate 2 mg 01/27/24 19:58 Morphine 2mg/Ml Syringe IV 02/26/24 19:57 Q3MINP PRN Severe Pain (7-10) Discontinued Medications Generic Name Dose Route Start Last Admin Trade Name Freq PRN Reason Stop Dose Admin Morphine Sulfate 2 mg 01/27/24 20:05 Morphine 2mg/Ml Syringe IV 02/26/24 20:04 Q3MINP PRN Severe Pain (7-10) Ondansetron HCl 4 mg 01/27/24 19:58 Ondansetron 4mg/2ml Vial IV 01/27/24 19:59 ONCE ONE ORDERS Category Date Time Status XR chest 2V Stat Exams 01/27/24 19:58 Completed Brain Natriuretic Peptide Stat Lab 01/27/24 19:47 Completed Complete Blood Count Auto Diff Stat Lab 01/27/24 19:47 Completed Comprehensive Metabolic Panel Stat Lab 01/27/24 19:47 Completed Troponin I Q3H Lab 01/27/24 19:47 Completed Troponin I Q3H Lab 01/27/24 21:40 Completed Troponin I Q3H Lab 01/28/24 02:00 Ordered ECG Data Tracing #1: Attestation: I reviewed this ECG and interpreted as documented below: ECG Narrative: EKG personally interpreted by me and remarkable for sinus rhythm with a rate of 63 bpm. No ischemic changes. MDM Narrative Medical Decision Narrative: 58-year-old female with past medical history significant for CVA, CHF, CKD, DM2, HTN, presents today for evaluation concerning left-sided chest pain rating down to her left arm onset around 1 PM while she was eating. On assessment, the patient was hemodynamically stable and in no acute distress. Afebrile. Chest was clear to auscultation bilaterally. No peripheral edema was noted. Other physical exam findings were unremarkable. Differential diagnoses include not limited to STEMI, NSTEMI, pleural effusion, pneumonia, musculoskeletal pain, among others. Patient's lab workup today has been nonactionable. Troponin is less than 1 x 2. There were no electrolyte derangements. EKG did not show any ischemic changes. On reassessment the patient tammie medically stable and in no acute distress. Continued to be chest pain-free at this time. I discussed ED workup results and current plan to discharge home with supportive care measures. She will follow- up with her PCP. Provided with return precautions. Verbalized understanding and agreement. Subsequently discharged home hemodynamically stable and in no distress.
[2024-01-27 20:26] LABS: Chloride 107 mmol/L (98-107); Potassium 3.9 mmoL/L (3.5-5.1); Sodium 140 mmol/L (136-145)
[2024-01-27 20:29] LABS: Alanine Aminotransferase 28 U/L (12-78); Albumin Level 4.3 g/dl (3.5-5.0); Albumin/Globulin Ratio 1.5 (1.1-1.8); Alkaline Phosphatase 69 U/L (38-126); Anion Gap 6.9 mEq/L (5-15); Aspartate Amino Transferase 32 U/L (14-36); Bilirubin,Total 0.8 mg/dl (0.2-1.3); Blood Urea Nitrogen 17 mg/dl (7-17); Carbon Dioxide 30 mmol/L (22.0-30.0); Creatinine Clearance Estimated 88 mL/min (50-200); Estimated Glomerular Filt Rate 57 ml/min (>60); GFR (African American) 69 ML/MIN (>60); Globulin 2.8 g/dL (1.3-3.2); Total Protein,Serum 7.1 g/dl (6.3-8.2)
[2024-01-27 20:30] LABS: Calcium 9.8 mg/dl (8.4-10.2); Glucose 171 mg/dl (74-100)
[2024-01-27 20:39] LABS: NT Pro Brain Natriuretic Pep. 55.1 pg/mL (0-125)
[2024-01-27 20:43] LABS: Troponin I < 0.01 ng/ml (0.00-0.034)
--- NOTE | 2024-01-27 21:12 | PC.NURSE ---
Patient reports arm pain is still present and with movement of arm causes pain into upper left quadrant of her abdomen. Patient denies nausea at this time. Patient denies need for pain medication at this time. Bed low and locked, family at bedside, call light within reach, no needs expressed at this time.
[2024-01-27 22:15] LABS: Troponin I < 0.01 ng/ml (0.00-0.034)
== END 2024-01-27 23:24 | disposition home or self-care (01) ==
PROVIDERS: Emergency Provider Emergency Medicine; PCP Physician Assistant
DX: R07.9 Chest pain, unspecified (principal); M79.602 Pain in left arm; I13.0 Hypertensive heart and chronic kidney disease with heart failure and stage 1 through stage 4 chronic kidney disease, or unspecified chronic kidney disease; I50.9 Heart failure, unspecified; E11.22 Type 2 diabetes mellitus with diabetic chronic kidney disease; N18.9 Chronic kidney disease, unspecified; I69.320 Aphasia following cerebral infarction
CPT/HCPCS: 71046; 80053; 83880; 84484; 85025; 93005; 96374; 96375; 99285

== ENCOUNTER 2024-02-16 15:27 | Observation (INO) | payer MEDICARE, OTHER, SELFPAY ==
[2024-02-16] VITALS (8 sets, daily range): BP systolic 120–165; BP diastolic 80–99; PULSE 67–80; RESP 16–20; TEMP 36.8–36.9; O2SAT 92–98; BMI 30.1; BMI 29.9
--- NOTE | 2024-02-16 15:39 | PC.NURSE ---
Dr. Cruz at [facility] for pt eval
--- NOTE | 2024-02-16 15:45 | CT_ITS ---
PROCEDURE INFORMATION: Exam: CTA Head With Contrast, Arteriography Exam date and time: 02/16/2024 4:35 PM Age: 58 years old Clinical indication: Other: Balance issue; Additional info: H/o stroke, new SX including balance issue TECHNIQUE: Imaging protocol: Computed tomographic angiography of the head with contrast. Exam focused on the arteries. 3D rendering (Not supervised by radiologist): MIP and/or 3D reconstructed images were created by the technologist. Radiation optimization: All CT scans at this facility use at least one of these dose optimization techniques: automated exposure control; mA and/or kV adjustment per patient size (includes targeted exams where dose is matched to clinical indication); or iterative reconstruction. Contrast material: ISOVUE 370; Contrast volume: 100 ml; Contrast route: INTRAVENOUS (IV); COMPARISON: CT HEAD/BRAIN WO CON 02/16/2024 4:35 PM FINDINGS: ANTERIOR CIRCULATION: Right internal carotid artery: Atherosclerosis and moderate stenosis of the right internal carotid artery. No visualized aneurysm. Right middle cerebral artery: Stenoses are visualized of M2 and M3 segments of the right MCA. No visualized aneurysm. Right anterior cerebral artery: No occlusion or significant stenosis. No aneurysm. Left internal carotid artery: No significant intracranial stenosis or occlusion of the left internal carotid artery. A tiny focus of increased density is identified posterior to the cavernous left internal carotid artery on series 3, image 95. When correlated with noncontrast CT images from the same day, this is likely due to atherosclerotic plaque rather than aneurysm. Left middle cerebral artery: Severely decreased flow is identified of a few M2 and M3 segments of the left MCA. There is severely decreased flow or occlusion of an M3 segment posteriorly. Additional M3 stenoses are also visualized. Left anterior cerebral artery: No occlusion or significant stenosis. No aneurysm. POSTERIOR CIRCULATION: Right vertebral artery: The right vertebral artery is small in caliber, without intracranial occlusion. Left vertebral artery: A dominant left vertebral artery is identified. No significant stenosis or occlusion of the left vertebral artery. Basilar artery: No occlusion or significant stenosis. No aneurysm. Right posterior cerebral artery: Mild stenoses are identified of the P2 segment of the right SEIS[employer]GRAPH COMPUTER, with severe stenosis of a P3 segment. No visualized aneurysm. Left posterior cerebral artery: Severe stenosis of the P1 segment of the left [employer]IS[employer]GRAPH COM[employer]ER visualized. Stenoses up to moderate in degree are visualized of the P2 segment. No visualized aneurysm. Brain: Refer to the head CT report from the same day. Cerebral ventricles: Moderate ventriculomegaly, with ex vacuo dilatation of the left lateral ventricle. Bones/joints: No acute fracture. Soft tissues: Unremarkable. IMPRESSION: 1. Severely decreased flow is identified of a few M2 and M3 segments of the left MCA. There is severely decreased flow or occlusion of an M3 segment posteriorly. Additional M3 stenoses are also visualized. 2. Bilateral SEISMOGRAPH COM[employer]ER stenoses are identified which are up to severe in degree. 3. A dominant left vertebral artery is identified. 4. Atherosclerosis and moderate stenosis of the right internal carotid artery. 5. Stenoses are visualized of M2 and M3 segments of the right MCA. 6. Additional findings described above.
--- NOTE | 2024-02-16 15:45 | CT_ITS ---
PROCEDURE INFORMATION: Exam: CT Head Without Contrast Exam date and time: 02/16/2024 4:35 PM Age: 58 years old Clinical indication: Other: Balance issue; Patient HX: Unable to remove jewelry; Additional info: H/o stroke, new SX including balance issue TECHNIQUE: Imaging protocol: Computed tomography of the head without contrast. Radiation optimization: All CT scans at this facility use at least one of these dose optimization techniques: automated exposure control; mA and/or kV adjustment per patient size (includes targeted exams where dose is matched to clinical indication); or iterative reconstruction. COMPARISON: CT ANGIO HEAD 02/16/2024 4:35 PM FINDINGS: Brain: Encephalomalacia/gliosis is identified involving the left temporal, occipital, and parietal lobes, as well as the left insula posteriorly. This is consistent with an old infarct. Foci and linear bands of hyperdensity are seen in this area of encephalomalacia, likely presenting calcification. These are stable findings compared to the previous exam. No acute intracranial hemorrhage is visualized. The will-white differentiation is otherwise preserved demonstrating no acute territorial type infarct. There are scattered small foci of white matter hypodensity, likely representing small vessel ischemic disease. The acuity of the white matter disease is indeterminate. There is no significant midline shift. Cerebral ventricles: Moderate ventriculomegaly, with ex vacuo dilatation of the atria and occipital horn of the left lateral ventricle. Stable sulcal atrophy. Pituitary gland and sella: A partially empty sella is visualized. Paranasal sinuses: There is complete opacification of the left maxillary sinus and a few left anterior ethmoid air cells. Mucosal thickening/effusion is seen within the sphenoid sinuses bilaterally. A mucous retention cyst or polyp is noted within the right maxillary sinus. There is minimal mucosal thickening versus a mucous retention cyst/polyp within the left frontal sinus. Mastoid air cells: Mild effusions are noted within right mastoid air cells. Bones/joints: The calvarium demonstrates no evidence for a depressed fracture. Soft tissues: Unremarkable. Vasculature: Intracranial atherosclerosis visualized. IMPRESSION: 1. No acute intracranial hemorrhage or acute territorial type infarct. 2. Encephalomalacia/gliosis is identified involving the left temporal, occipital, and parietal lobes, as well as the left insula posteriorly. This is consistent with an old infarct. Calcifications are seen in this region. These are stable findings compared to the previous exam. 3. Moderate ventriculomegaly, with ex vacuo dilatation of the atria and occipital horn of the left lateral ventricle. Stable sulcal atrophy. 4. There are scattered small foci of white matter hypodensity, likely representing small vessel ischemic disease. 5. Paranasal sinus disease. 6. Mild effusions are noted within right mastoid air cells. 7. If further evaluation is clinically indicated, an MRI of the brain is recommended.
--- NOTE | 2024-02-16 15:45 | XR_ITS ---
PROCEDURE INFORMATION: Exam: XR Chest Exam date and time: 02/16/2024 4:36 PM Age: 58 years old Clinical indication: Other: Weakness/dizzy; Additional info: H/o stroke, weakness/dizziness TECHNIQUE: Imaging protocol: Radiologic exam of the chest. Views: 1 view. COMPARISON: CR XR CHEST 2V 01/27/2024 8:01 PM FINDINGS: Lungs: The previously visualized right perihilar infiltrate has resolved on current images. No new consolidation is identified. Mild nonspecific increased interstitial markings are seen. Pleural spaces: No pleural effusion. No pneumothorax. Heart/Mediastinum: The cardiac silhouette is at the upper limits of normal in size. Bones/joints: Degenerative changes are noted involving the spine. IMPRESSION: The previously visualized right perihilar infiltrate has resolved on current images. No new consolidation is identified. Mild nonspecific increased interstitial markings are seen.
--- NOTE | 2024-02-16 15:45 | CT_ITS ---
PROCEDURE INFORMATION: Exam: CTA Neck With Contrast Exam date and time: 02/16/2024 4:35 PM Age: 58 years old Clinical indication: Other: Balance issue; Additional info: H/o stroke, new SX including balance issue TECHNIQUE: Imaging protocol: Computed tomographic angiography of the neck with contrast. Exam focused on the cervical segments of the vasculature. 3D rendering (Not supervised by radiologist): MIP and/or 3D reconstructed images were created by the technologist. Radiation optimization: All CT scans at this facility use at least one of these dose optimization techniques: automated exposure control; mA and/or kV adjustment per patient size (includes targeted exams where dose is matched to clinical indication); or iterative reconstruction. Contrast material: ISOVUE 370; Contrast volume: 100 ml; Contrast route: INTRAVENOUS (IV); COMPARISON: CT ANGIO HEAD 02/16/2024 4:35 PM FINDINGS: Right common carotid artery: Increased tortuosity of the right common carotid artery. No significant stenosis or occlusion. Right internal carotid artery: Increased tortuosity of the right internal carotid artery. No stenosis using NASCET criteria. Right external carotid artery: No occlusion or significant stenosis. Left common carotid artery: Artifact limits evaluation of the proximal left common carotid artery, without occlusion. No significant stenosis or occlusion of the remaining left common carotid artery. Increased tortuosity. Left internal carotid artery: Increased tortuosity of the left internal carotid artery. No stenosis using NASCET criteria. Left external carotid artery: No occlusion or significant stenosis. Right vertebral artery: The right vertebral artery is small in caliber, without extracranial occlusion. Mild stenosis at the origin of the right vertebral artery. Left vertebral artery: A dominant left vertebral artery is identified. No significant stenosis or occlusion of the left vertebral artery. Right subclavian artery: An aberrant right subclavian artery is visualized, which is patent. Mild atherosclerosis. Aorta: Artifact limits evaluation of the ascending aorta and pulmonary trunk. Paranasal sinuses: Paranasal sinus disease is visualized. 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 Lymph nodes: A nonspecific small right intraparotid lymph node is identified. Soft tissues: No significant soft tissue swelling. Bones/joints: Degenerative changes are visualized involving the cervical and upper thoracic spine. Varying degrees of spinal canal stenoses and neural foraminal narrowing are visualized at cervical levels. Artifact limits evaluation of the spinal canal. Pleural spaces: Minimal bilateral pleural effusions. IMPRESSION: 1. An aberrant right subclavian artery is visualized, which is patent. 2. No stenosis of the extracranial internal carotid arteries bilaterally using NASCET criteria. 3. A dominant left vertebral artery is identified. 4. Mild stenosis at the origin of the right vertebral artery. 5. Minimal bilateral pleural effusions. 6. Additional findings described above. REFERENCES: NASCET CRITERIA. The degree of stenosis in the cervical segment of the internal carotid artery is based on NASCET criteria. Normal is no stenosis. Mild is less than 50% stenosis. Moderate is 50-69% stenosis. Severe is 70% to 99% stenosis. Total occlusion is no detectable patent lumen.
--- NOTE | 2024-02-16 15:53 | ED_ITS ---
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 History is difficult for the patient to express given her aphasia, however she and her family note that she has had headache since she woke up this morning. She also has had visual disturbance in her right eye, as she is seeing spots, and she feels off balance. She also notes that both of her legs feel weak and numb. She does have a history of expressive aphasia and residual right-sided deficits from prior stroke, but today she feeling really unusual and is concerned she could be having another stroke. She went to bed last night completely at her baseline around 10 PM. She woke up with symptoms this morning, tried to take a nap to get them to go away, but when she woke up from her nap they were still there. No other concerns noted, such as fevers, chills, cough, congestion, facial numbness, facial droop, chest pain, shortness of breath, abdominal pain, nausea, vomiting, changes bowel movements, urinary symptoms, rashes, or swelling. Related Data Home Medications Medication Instructions Recorded Confirmed rosuvastatin 20 mg tablet 20 mg PO QHS 12/02/23 02/16/24 insulin aspar prot-insulin aspart 22 unit SQ BID 02/16/24 02/16/24 100 unit/mL (70-30) subcutaneous pen (Novolog Mix 70-30FlexPen U-100) insulin glargine 100 unit/mL (3 40 unit SQ HS 02/16/24 02/16/24 mL) subcutaneous pen (Lantus Solostar U-100 Insulin) mirabegron 25 mg tablet,extended 25 mg PO DAILY 02/16/24 02/16/24 release 24 hr Previous Rx's Medication Instructions Recorded glimepiride 4 mg tablet 4 mg PO DAILY #90 tabs 10/21/23 levothyroxine 50 mcg tablet 50 mcg PO DAILY #90 tabs 10/21/23 (Synthroid) losartan 100 mg tablet 100 mg PO DAILY #90 tabs 10/21/23 escitalopram oxalate 5 mg tablet 5 mg PO DAILY #90 tabs 10/22/23 semaglutide 1 mg/dose (4 mg/3 mL) 1 mg (0.75 mL) SQ WEEKLY #3 mL 12/31/23 subcutaneous pen injector (Ozempic) carvedilol 12.5 mg tablet 12.5 mg PO BID #180 tabs 01/23/24 ergocalciferol (vitamin D2) 1,250 1,250 mcg PO WEEKLY #14 caps 01/23/24 mcg (50,000 unit) capsule levetiracetam 500 mg tablet 500 mg PO BID #180 tabs 01/23/24 pregabalin 75 mg capsule (Lyrica) 75 mg PO BID #60 caps 02/04/24 apixaban 5 mg tablet (Eliquis) 5 mg PO BID #180 tabs 02/12/24 Allergies Allergy/AdvReac Type Severity Reaction Status Date / Time No Known Allergies Allergy Verified 02/04/24 15:02 [facility] Disclaimer: The information contained in this section may have been updated after the patient was seen, as this information can be updated by other users. Medical History Urinary leakage Persistent complex bereavement disorder Adjustment disorder with depressed mood History of stroke Heart failure Kidney disease 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, type 2 Hypertension Surgical History Hx of total thyroidectomy Hx of hysterectomy History of colonoscopy Family History Father Heart disease Mother Stroke Social History (Updated 02/16/24 @ 19:00 by Bessie Licona RN) Smoking Status: Never smoker alcohol intake: never substance use type: denies use current occupational status: unemployed and disabled Travel in the last 8 weeks: None number of children: 4 ROS Obtained: Yes All systems reviewed & no additional complaints except as documented Physical Exam General General appearance: alert and in no apparent distress Head Head exam: atraumatic and normocephalic Eye Eye exam: Present normal appearance, PERRL and EOMI ENT ENT exam: Present normal exam, normal oropharynx, mucous membranes moist and normal external ear exam Neck Neck exam: Present normal inspection, full ROM and trachea midline; Absent tenderness Chest Chest inspection: Present normal inspection and symmetric chest wall rise; Absent tenderness Respiratory Respiratory exam: Present normal lung sounds bilaterally; Absent respiratory distress, wheezes, stridor or accessory muscle use Cardiovascular Cardiovascular exam: Present regular rate and normal rhythm Abdominal Exam Abdominal exam: Present soft; Absent distention, tenderness or guarding Extremities Exam Extremities exam: Present normal inspection, full ROM and normal capillary refill; Absent tenderness or edema Back Exam Back exam: Present normal inspection and full ROM; Absent tenderness Neurological Exam Neurological exam: Present alert, oriented X3, CN II-XII intact, normal gait, motor sensory deficit (Subjective decrease in sensation on the right side in the right upper extremity right lower extremity.) and other (Residual expressive aphasia from prior CVA) Expanded Neurological Exam Speech: Present expressive aphasia Cranial nerves: Normal: EOM function (II, III, IV, ), facial sensation (V), facial palsy (VII), spinal accessory function (XI) and tongue deviation (XII) Cerebellar function: Normal: finger to nose and heel to bauman Cerebellar function: normal gait Motor strength - LUE: 5/5 Motor strength - RUE: 5/5 Motor strength - LLE: 5/5 Motor strength - RLE: 5/5 Sensory exam upper extremity: Abnormal Right: light touch Sensory exam lower extremity: Abnormal Right: light touch Coma scale eye opening: Spontaneous Coma scale motor response: Obeys commands Coma scale verbal response: Oriented Coma scale total: 15 Psychiatric Psychiatric exam: Present normal affect and normal mood Skin Skin exam: Present warm and dry Medical Decision Making Medical Records Medical records reviewed: Yes I reviewed the patient's medical records. Chandan Inquiry Pt receiving controlled substance: No Vital Signs: 02/16/24 15:44 02/16/24 16:00 02/16/24 16:48 Temperature 98.2 F Temperature Source Oral Pulse Rate 75 74 Pulse Rate [Left Radial] 73 Respiratory Rate 20 Blood Pressure 138/88 157/88 H Blood Pressure [Right Arm] 148/94 H Blood Pressure Mean 113 Blood Pressure Mean [Right Arm] 112 Blood Pressure Source Blood Pressure Position 02 Sat by Pulse Oximetry 96 92 L 95 Oxygen Delivery Method Room Air Room Air 02/16/24 17:01 02/16/24 18:36 Temperature 98.2 F Temperature Source Oral Pulse Rate 75 72 Pulse Rate [Left Radial] Respiratory Rate 18 Blood Pressure 155/99 H 156/98 H Blood Pressure [Right Arm] Blood Pressure Mean 117 Blood Pressure Mean [Right Arm] Blood Pressure Source Automatic Cuff Blood Pressure Position Sitting 02 Sat by Pulse Oximetry 96 Oxygen Delivery Method Room Air Lab Data Lab results reviewed: Yes I reviewed the patient's lab results. Lab Results 02/16/24 15:36: WBC 6.2, RBC 4.72, Hgb 13.5, Hct 42.0, MCV 89.0, MCH 28.5, MCHC 32.0, RDW 14.6, Plt Count 209, MPV 7.9, Neut % (Auto) 58.2, Lymph % (Auto) 32.0, Coles % (Auto) 4.4, Eos % (Auto) 4.2, Baso % (Auto) 1.1, Neut # (Auto) 3.6, Lymph # (Auto) 2.0, Coles # (Auto) 0.3, Eos # (Auto) 0.3, Baso # (Auto) 0.1, PT 10.6, INR 0.98, APTT 31.8 H, Sodium 141, Potassium 3.8, Chloride 107, Carbon Dioxide 23, Anion Gap 14.8, BUN 14, Creatinine 0.90, Estimated Creat Clear 98, Estimated GFR 65, Est GFR ( Amer) 78, Glucose 202 H, Calcium 9.2, Total Bilirubin 0.7, AST 30, ALT 24, Alkaline Phosphatase 63, Troponin I < 0.01, Total Protein 6.8, Albumin 4.1, Globulin 2.7, Albumin/Globulin Ratio 1.5, TSH 0.48, Thyroxine (T4) 9.2 02/16/24 15:55: SARS-CoV-2 (PCR) Not detected, Influenza A Untype (PCR) Not detected, Influenza Type B (PCR) Not detected 02/16/24 16:30: Urine Color Yellow, Urine Appearance Clear, Urine pH 6.0, Ur Specific [place] >= 1.030, Urine Protein Negative, Urine Glucose (UA) Negative, Urine Ketones Negative, Urine Blood Negative, Urine Nitrate Negative, Urine Bilirubin Negative, Urine Urobilinogen 1.0, Ur Leukocyte Esterase Negative, Urine RBC None, Urine WBC None, Ur Squamous Epith Cells 3-5, Urine Bacteria Trace 02/16/24 15:36 02/16/24 15:36 Orders (Tests/Meds): ED MEDICATIONS Generic Name Dose Route Start Last Admin Trade Name Maxq PRN Reason Stop Dose Admin Acetaminophen 650 mg 02/16/24 17:55 Acetaminophen 325mg Tab PO 03/17/24 17:54 Q4HP PRN Fever or Mild Pain (1-3) Apixaban 5 mg 02/16/24 21:00 Apixaban 5mg Tablet PO 03/17/24 20:59 BID [facility] Carvedilol 12.5 mg 02/16/24 21:00 Carvedilol 12.5mg Tablet PO 03/17/24 20:59 BID MARII Citalopram Hydrobromide 10 mg 02/17/24 09:00 Citalopram 10mg Tablet PO 03/18/24 08:59 DAILY MARII Lactated Ringer's 1,000 mls @ 50 mls/hr 02/16/24 18:00 02/16/24 18:43 Lactated Ringer's 1000 Ml Bag IV 03/17/24 17:59 50 mls/hr .Q20H MARII Administration Insulin Glargine 40 unit 02/16/24 21:00 Insulin Glargine 100 Units/Ml 3ml Flexpen SQ 03/17/24 20:59 HS MARII Insulin Human Lispro 0 unit 02/16/24 21:00 Humalog 100 Units/Ml 3ml Vial (Ssi) SQ 03/17/24 20:59 ACHS MAIRI Protocol Insulin Lispro Protam/Lispro Human 22 unit 02/16/24 21:00 Humalog Mix 75/25 3ml Flexpen SQ 03/17/24 20:59 BID MARII Irbesartan 150 mg 02/17/24 09:00 Irbesartan 150mg Tab PO 03/18/24 08:59 DAILY [facility]II Levetiracetam 500 mg 02/16/24 21:00 Levetiracetam 500 Mg Tablet PO 03/17/24 20:59 BID MARII Levothyroxine Sodium 50 mcg 02/17/24 09:00 Levothyroxine 50mcg (0.05mg) Tab PO 03/18/24 08:59 DAILY [facility]II Non-Formulary Medication 25 mg 02/17/24 09:00 Mirabegron PO 03/18/24 08:59 DAILY [facility] Non-Formulary Medication 75 mg 02/16/24 21:00 Pregabalin [Lyrica] PO 03/17/24 20:59 BID MARII Non-Formulary Medication 20 mg 02/16/24 20:15 Rosuvastatin PO 03/17/24 20:14 QHS MARII Ondansetron HCl 4 mg 02/16/24 17:55 Ondansetron 4mg/2ml Vial IV 03/17/24 17:54 Q8HP PRN Nausea Sodium Chloride 10 ml 02/16/24 17:55 Sodium Chloride 0.9% 10ml Flush Syringe IV 03/17/24 17:54 NEEDED PRN Maintain IV Site Discontinued Medications Generic Name Dose Route Start Last Admin Trade Name Freq PRN Reason Stop Dose Admin Iopamidol 100 ml 02/16/24 16:46 02/16/24 16:46 Iopamidol-370 (76%);100ml Bottle IV 02/16/24 16:47 100 ml ONCE ONE Administration Sodium Chloride 10 ml 02/16/24 16:46 02/16/24 16:46 Sodium Chloride 0.9% 10ml Syr (Rad Only) IV 02/16/24 16:47 10 ml ONCE ONE Administration Sodium Chloride 50 ml 02/16/24 16:46 02/16/24 16:46 0.9 % Sodium Chloride 50 Ml Vial IV 02/16/24 16:47 50 ml ONCE ONE Administration ORDERS Category Date Time Status CT angio head Stat Cat Scan 02/16/24 15:[address] angio neck Stat Cat Scan 02/16/24 15:[address] head/brain wo con Stat Cat Scan 02/16/24 15:45 Completed XR chest portable Stat Exams 02/16/24 15:45 Completed Activated Partial Thrombo Time Stat Lab 02/16/24 15:36 Completed Basic Metabolic Panel AMLAB Lab 02/17/24 06:00 Ordered Basic Metabolic Panel AMLAB Lab 02/18/24 06:00 Ordered Basic Metabolic Panel AMLAB Lab 02/19/24 06:00 Ordered Complete Blood Count Auto Diff AMLAB Lab 02/17/24 06:00 Ordered Complete Blood Count Auto Diff AMLAB Lab 02/18/24 06:00 Ordered Complete Blood Count Auto Diff AMLAB Lab 02/19/24 06:00 Ordered Complete Blood Count Auto Diff Stat Lab 02/16/24 15:36 Completed Comprehensive Metabolic Panel Stat Lab 02/16/24 15:36 Completed Prothrombin Time INR Stat Lab 02/16/24 15:36 Completed Rapid PCR Covid and Flu A/B Stat Lab 02/16/24 15:55 Completed T4 (Thyroxine) Stat Lab 02/16/24 15:36 Completed Thyroid Stimulating Hormone Stat Lab 02/16/24 15:36 Completed Trop I [Troponin I] Stat Lab 02/16/24 15:36 Completed Troponin I Q3H Lab 02/16/24 19:00 Completed Troponin I Q3H Lab 02/16/24 21:45 Ordered Urinalysis and Microscopic Stat Lab 02/16/24 16:30 Completed ECG Data Tracing #1: I reviewed this ECG and interpreted as documented below: Normal sinus rhythm with a ventricular rate of [address] changes concerning for ischemia. Normal intervals ECG initial impression date: 02/16/24 ECG initial impression time: 16:01 Medical Decision Narrative: In summary, this patient is a 58 year old female presenting to the Emergency Department for evaluation of headache, balance issue, visual disturbance, and BLE sensory issues since she woke up this morning. LKN effectively 2200 02/15/24. Differential diagnoses considered include but are not limited to CVA, intracranial hemorrhage, intracranial mass, electrolyte derangements, complex migraine, UTI, viral syndrome. Ruling out the most morbid conditions drove assessment. Patient arrives well-appearing with normal vital signs on cardiac telemetry. NIH stroke scale is 2 given the patient's residual expressive aphasia as well as sensory deficits on the right side. She states that the right side feels less pronounced. Patient is unsure if this is from her residual stroke or if this is new. Ultimately, regardless, she presents outside of the tPA window. Workup included CBC, CMP, troponin, TSH, T4, PT, PTT, urinalysis, viral swab, chest x- ray, EKG, CT head without contrast, and CT angiogram of the head and neck. I independently interpreted CT scans prior to the radiologist read and noted no obvious acute hemorrhage. I do note the patient's prior area of encephalomalacia from her left MCA stroke. Please see their read for final interpretation. They called and I had an interactive discussion with the radiologist who noted concerns for significant intracranial stenosis, including bilateral posterior circulation as well as right MCA. This is in addition to her baseline left MCA. Labs were obtained that demonstrated no acutely concerning abnormalities. On reassessment, the patient is resting comfortably with no changes in status. I had an interactive discussion with neurosurgery at [facility] and Dr. Kemp who advised no LVO, but patient does have left [employer] stenosis. I had an interactive discussion with Dr. Harris?, PhD at who advised admitting the patient for MRI here given that she is outside of any window and optimizing medical management on aspirin, statin, and Eliquis as long as there is no evidence of any concern for hemorrhage on there. Ultimately, patient is agreeable to be admitted here for MRI, understanding that she is outside of the window for any intervention and that we would only be helping to further workup so that she can be medically optimized by neurology. I had an interactive discussion with the hospitalist who admitted the patient for further evaluation and management. She was admitted in stable condition. Critical Care Critical Care Time Critical Care Time: No
--- NOTE | 2024-02-16 16:00 | ECG_ITS ---
APPROVED REPORT Exam: Resting ECG HR:76 bpm ECG Measurements Heart Rate 76 AXES WV 178 P 28 QRSd 93 QRS -20 QT 363 T 88 QTc 393 Conclusion SINUS RHYTHM NONSPECIFIC T-WAVE ABNORMALITY Electronically signed by : EMANUEL WOOTEN, 02/16/2024 21:37:07
[2024-02-16 16:01] LABS: Coronavirus 19, PCR Not Detected (NotDetected); Influenza A, PCR Not Detected (NotDetected); Influenza B, PCR Not Detected (NotDetected)
[2024-02-16 16:02] LABS: Basophils # 0.1 K/mm3 (0-0.2); Basophils % 1.1 % (0.1-2.0); Eosinophils # 0.3 K/mm3 (0.0-0.4); Eosinophils % 4.2 % (0.1-12.0); Hemoglobin 13.5 g/dL (12.2-16.2); Mean Corpuscular Hemoglobin 28.5 pg (27.0-31.2); Mean Platelet Volume 7.9 fl (7.4-10.4); Monocytes # 0.3 K/mm3 (0.1-1.0); Monocytes % 4.4 % (1.7-9.3); Neutrophils # 3.6 K/mm3 (1.8-7.8); Neutrophils % 58.2 % (37.0-80.0); Platelet Count 209 K/mm3 (142-424); Red Blood Count 4.72 M/mm3 (4.20-5.40); Red Cell Distribution Width 14.6 % (11.5-17.5); White Blood Count 6.2 K/mm3 (4.8-10.8)
[2024-02-16 16:05] LABS: Alanine Aminotransferase 24 U/L (12-78); Albumin Level 4.1 g/dl (3.5-5.0); Albumin/Globulin Ratio 1.5 (1.1-1.8); Alkaline Phosphatase 63 U/L (38-126); Anion Gap 14.8 mEq/L (5-15); Aspartate Amino Transferase 30 U/L (14-36); Bilirubin,Total 0.7 mg/dl (0.2-1.3); Blood Urea Nitrogen 14 mg/dl (7-17); Calcium 9.2 mg/dl (8.4-10.2); Carbon Dioxide 23 mmol/L (22.0-30.0); Chloride 107 mmol/L (98-107); Creatinine Clearance Estimated 98 mL/min (50-200); Estimated Glomerular Filt Rate 65 ml/min (>60); GFR (African American) 78 ML/MIN (>60); Globulin 2.7 g/dL (1.3-3.2); Glucose 202 mg/dl (74-100); Potassium 3.8 mmoL/L (3.5-5.1); Sodium 141 mmol/L (136-145); Total Protein,Serum 6.8 g/dl (6.3-8.2)
[2024-02-16 16:20] LABS: Troponin I < 0.01 ng/ml (0.00-0.034)
[2024-02-16 16:22] LABS: T4 (Thyroxine) 9.2 ug/dl (5.53-11.0)
--- NOTE | 2024-02-16 16:29 | PC.NURSE ---
PT gone to RAD via wheelchair
[2024-02-16 16:35] LABS: Microscopic, Urine URINE MICROSCOPIC (MICROSCOPIC)
[2024-02-16 16:36] LABS: Thyroid Stimulating Hormone 0.48 uIU/mL (0.465-4.68)
[2024-02-16 16:37] LABS: Appearance,Urine CLEAR (Clear); Bilirubin,Urine Negative (Negative); Blood, Urine Negative (Negative); Color,Urine YELLOW (Yellow); Glucose,Urine (UA) Negative (Negative); Ketones,Urine Negative (Negative); Leukocyte Esterase,Urine Negative (Negative); Nitrate,Urine Negative (Negative); Protein,Urine Negative (Negative); Specific Gravity, Urine >= 1.030 (1.005-1.030)
[2024-02-16 16:41] LABS: Activated Partial Thrombo Time 31.8 seconds (22.8-30.6); INR 0.98 (0.9-1.1); Prothrombin Time 10.6 seconds (10.1-12.5)
--- NOTE | 2024-02-16 16:45 | PC.NURSE ---
PT returned to room
[2024-02-16] MEDS: 0.9 % SODIUM CHLORIDE 50 ML VIAL IV (16:46)
[2024-02-16] MEDS: SODIUM CHLORIDE 0.9% 10ML SYR (RAD ONLY) 10 ML IV (16:46)
[2024-02-16] MEDS: IOPAMIDOL-370 (76%);100ML BOTTLE 100 ML IV (16:46)
[2024-02-16 17:13] LABS: Bacteria,Urine Trace /lpf
--- NOTE | 2024-02-16 18:02 | PC.NURSE ---
delay for admission r/t awaiting on phone consult with neuro
--- NOTE | 2024-02-16 18:07 | PC.NURSE ---
called [facility] for a Neurology consen about this pt for Dr Cruz. stayed on the line and Dr Goetz was paged to speak with Dr Cruz
--- NOTE | 2024-02-16 18:21 | PC.NURSE ---
report called to rubia slater
[2024-02-16] MEDS: LACTATED RINGERS 1000ML 1,000 ML 50 ML IV (18:43)
[2024-02-16 19:38] LABS: Troponin I < 0.01 ng/ml (0.00-0.034)
--- NOTE | 2024-02-16 19:43 | EXP.HP ---
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 History obtained from patient and her family at bedside, who note that she has had headache since she woke up this morning. She also has had visual disturbance in her right eye, as she is seeing spots, and she feels off balance. She also notes that both of her legs feel weak and numb. She does have a history of expressive aphasia and residual right-sided deficits from prior stroke, but today she feeling really unusual and is concerned she could be having another stroke. She went to bed last night completely at her baseline around 10 PM. She woke up with symptoms this morning, tried to take a nap to get them to go away, but when she woke up from her nap they were still there. No other concerns noted, such as fevers, chills, cough, congestion, facial numbness, facial droop, chest pain, shortness of breath, abdominal pain, nausea, vomiting, changes bowel movements, urinary symptoms, rashes, or swelling. Admitted for further work up and monitoring. [facility] Disclaimer: The information contained in this section may have been updated after the patient was seen, as this information can be updated by other users. Medical History Urinary leakage Persistent complex bereavement disorder Adjustment disorder with depressed mood History of stroke Heart failure Kidney disease 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, type 2 Hypertension Surgical History Hx of total thyroidectomy Hx of hysterectomy History of colonoscopy Family History Father Heart disease Mother Stroke Social History (Updated 02/16/24 @ 19:00 by Bessie Licona RN) Smoking Status: Never smoker alcohol intake: never substance use type: denies use current occupational status: unemployed and disabled Travel in the last 8 weeks: None number of children: 4 Review of Systems Review of Systems Review of systems:: pertinent systems reviewed and negative unless documented below Meds Home Medications and Allergies Home Medications Medication Instructions Recorded Confirmed Type glimepiride 4 mg tablet 4 mg PO DAILY #90 tabs 10/21/23 02/16/24 Rx levothyroxine 50 mcg tablet 50 mcg PO DAILY #90 tabs 10/21/23 02/16/24 Rx (Synthroid) losartan 100 mg tablet 100 mg PO DAILY #90 tabs 10/21/23 02/16/24 Rx escitalopram oxalate 5 mg tablet 5 mg PO DAILY #90 tabs 10/22/23 02/16/24 Rx rosuvastatin 20 mg tablet 20 mg PO QHS 12/02/23 02/16/24 History semaglutide 1 mg/dose (4 mg/3 mL) 1 mg (0.75 mL) SQ WEEKLY #3 mL 12/31/23 02/16/24 Rx subcutaneous pen injector (Ozempic) carvedilol 12.5 mg tablet 12.5 mg PO BID #180 tabs 01/23/24 02/16/24 Rx ergocalciferol (vitamin D2) 1,250 1,250 mcg PO WEEKLY #14 caps 01/23/24 02/16/24 Rx mcg (50,000 unit) capsule levetiracetam 500 mg tablet 500 mg PO BID #180 tabs 01/23/24 02/16/24 Rx pregabalin 75 mg capsule (Lyrica) 75 mg PO BID #60 caps 02/04/24 02/16/24 Rx apixaban 5 mg tablet (Eliquis) 5 mg PO BID #180 tabs 02/12/24 02/16/24 Rx insulin aspar prot-insulin aspart 22 unit SQ BID 02/16/24 02/16/24 History 100 unit/mL (70-30) subcutaneous pen (Novolog Mix 70-30FlexPen U-100) insulin glargine 100 unit/mL (3 40 unit SQ HS 02/16/24 02/16/24 History mL) subcutaneous pen (Lantus Solostar U-100 Insulin) mirabegron 25 mg tablet,extended 25 mg PO DAILY 02/16/24 02/16/24 History release 24 hr New Prescriptions to Start Prescriptions: Allergies Allergy/AdvReac Type Severity Reaction Status Date / Time No Known Allergies Allergy Verified 02/04/24 15:02 Exam Data for Last 24 hours Vital signs and Labs for Last 24 Hours: Temp Pulse Resp BP Pulse Ox O2 Del Method 98.3 F 72 18 120/80 97 Room Air 02/16/24 18:37 02/16/24 18:37 02/16/24 18:37 02/16/24 18:37 02/16/24 18:37 02/16/24 19:00 Laboratory Results - last 24 hr 02/16/24 15:36: WBC 6.2, RBC 4.72, Hgb 13.5, Hct 42.0, MCV 89.0, MCH 28.5, MCHC 32.0, RDW 14.6, Plt Count 209, MPV 7.9, Neut % (Auto) 58.2, Lymph % (Auto) 32.0, [place] % (Auto) 4.4, Eos % (Auto) 4.2, Baso % (Auto) 1.1, Neut # (Auto) 3.6, Lymph # (Auto) 2.0, [place] # (Auto) 0.3, Eos # (Auto) 0.3, Baso # (Auto) 0.1, PT 10.6, INR 0.98, APTT 31.8 H, Sodium 141, Potassium 3.8, Chloride 107, Carbon Dioxide 23, Anion Gap 14.8, BUN 14, Creatinine 0.90, Estimated Creat Clear 98, Estimated GFR 65, Est GFR ( Amer) 78, Glucose 202 H, Calcium 9.2, Total Bilirubin 0.7, AST 30, ALT 24, Alkaline Phosphatase 63, Troponin I < 0.01, Total Protein 6.8, Albumin 4.1, Globulin 2.7, Albumin/Globulin Ratio 1.5, TSH 0.48, Thyroxine (T4) 9.2 02/16/24 15:55: SARS-CoV-2 (PCR) Not detected, Influenza A Untype (PCR) Not detected, Influenza Type B (PCR) Not detected 02/16/24 16:30: Urine Color Yellow, Urine Appearance Clear, Urine pH 6.0, Ur Specific [place] >= 1.030, Urine Protein Negative, Urine Glucose (UA) Negative, Urine Ketones Negative, Urine Blood Negative, Urine Nitrate Negative, Urine Bilirubin Negative, Urine Urobilinogen 1.0, Ur Leukocyte Esterase Negative, Urine RBC None, Urine WBC None, Ur Squamous Epith Cells 3-5, Urine Bacteria Trace 02/16/24 19:00: Troponin I < 0.01 I & O for Last 24 hours: Intake & Output 02/13/24 02/14/24 02/15/24 02/16/24 23:59 23:59 23:59 23:59 Weight 89.613 kg Constitutional Constitutional: no acute distress and cooperative *Routine HEENT Exam Head: Present normocephalic Eye: Present EOMI and PERRL ENT: Present mucous membranes moist *Routine Neck Exam Neck: Present supple; Absent lymphadenopathy *Routine Respiratory Exam Respiratory: Present CTA bilaterally *Routine Cardiovascular Exam Cardiovascular: Present RRR *Routine Abdominal Exam Abdominal: Present soft and normoactive bowel sounds; Absent tenderness *Routine Rectal Exam Rectal:: deferred *Routine Genitalia Exam Genitalia:: deferred *Routine Extremities Exam Extremities: Absent cyanosis, clubbing or edema *Routine Skin Exam Skin: Present warm; Absent rash *Routine Neurological Exam Neurological: Present alert, oriented X3, normal reflexes and moving all extremities; Absent motor deficit, nystagmus, hemineglect or facial asymmetry Routine Psychiatric Exam Psychiatric: Present good insight H&P: Result Imaging and Cardiology EKG: Status: image reviewed by me, Preliminary report and final report CT scan - chest: Status: image reviewed by me, Preliminary report and final report Chest x-ray: Status: image reviewed by me, Preliminary report and final report Assessment and Plan *Assessment and plan (1) TIA (transient ischemic attack): Status: Acute Category: Medical Code(s): G45.9 - Transient cerebral ischemic attack, unspecified (2) Stroke: Status: Chronic Qualifiers: CVA mechanism: stenosis Precerebral and cerebral artery: posterior cerebral artery Laterality of affected vessel: left Qualified Code(s): I63.532 - Cerebral infarction due to unspecified occlusion or stenosis of left posterior cerebral artery Category: Medical Code(s): I63.9 - Cerebral infarction, unspecified (3) Type 2 diabetes mellitus with diabetic neuropathy: Status: Chronic Qualifiers: 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: with intermodal owner operator truck driver use Qualified Code(s): E11.40 - Type 2 diabetes mellitus with diabetic neuropathy, unspecified; Z79.4 - tank terminal gauger (current) use of insulin Category: Medical Code(s): E11.40 - Type 2 diabetes mellitus with diabetic neuropathy, unspecified (4) Heart failure: Status: Acute Qualifiers: Heart failure type: unspecified Heart failure chronicity: unspecified Qualified Code(s): I50.9 - Heart failure, unspecified Category: Medical Code(s): I50.9 - Heart failure, unspecified (5) Hypertension: Status: Chronic Qualifiers: Hypertension type: unspecified Qualified Code(s): I10 - Essential (primary) hypertension Category: Medical Code(s): I10 - Essential (primary) hypertension (6) Kidney disease: Status: Acute Category: Medical Code(s): N28.9 - Disorder of kidney and ureter, unspecified (7) Hypothyroidism: Status: Chronic Qualifiers: Hypothyroidism type: unspecified Qualified Code(s): E03.9 - Hypothyroidism, unspecified Category: Medical Code(s): E03.9 - Hypothyroidism, unspecified (8) Seizure: Status: Chronic Category: Medical Code(s): R56.9 - Unspecified convulsions Plan 58-year-old female with PMHx of 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 Initial workup included CBC, CMP, troponin, TSH, T4, PT, PTT, urinalysis, viral swab, chest x-ray, EKG, CT head without contrast, and CT angiogram of the head and neck. Imaging reviewed. no acute hemorrhage. Patient has a prior area of encephalomalacia from her left MCA stroke. Radiologist reported concerns for significant intracranial stenosis, including bilateral posterior circulation as well as right MCA. This is in addition to her baseline left MCA. Labs were obtained that demonstrated no acutely concerning abnormalities. Discussion with neurosurgery at [facility] and Dr. 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 Per ED documentation and as a result of Neuroconsultation with Dr. Knowles?Jorge?, PhD at recommendation for admission for MRI, since patient is outside of any TpA window and optimizing medical management on aspirin, statin, and Eliquis as long as there is no evidence of any concern for hemorrhage on there. Findings discussed extensively with ED. Agreed for admission. At the time of evaluation. patient remains stable, NIHSS is 0. Plan as follow: - TIA/ stroke secondary to left SPECIAL NEEDS TUTOR stenosis: Admit patient for continuos neuro monitoring. dispo med-surg neuro check q4 and as needed. CT of head STAT if neuroconditions deteriorate permissive hypertension MRI of the brain ordered. PT/OT to eval and treat . resume eliquis, statin and aspirin. repeat labs IDDM with Hyperglicemia: a1c 8.4. optimize BS and diet resume home lantus and Mix insuline accucheck before meals sliding scale others chronic conditions HTN, CHF, Hypothyroidism, Seizure disorder: conditions reviewed,. Home medications regimen reconciled and resume continue monitoring on eliquis. Protonix for GI bleed protection Plan extensively discussed with patient and family. they agreed. Full code.
[2024-02-16 20:25] LABS: POC Glucose,Bedside 175 (70-110)
[2024-02-16] MEDS: humaLOG MIX 75/25 3ML FLEXPEN 22 UNIT SQ (21:04)
[2024-02-16] MEDS: INSULIN GLARGINE 100 UNITS/ML 3ML FLEXPEN 40 UNIT SQ (21:07)
[2024-02-16] MEDS: APIXABAN 5MG TABLET 5 MG PO (21:08)
[2024-02-16] MEDS: CARVEDILOL 12.5MG TABLET 12.5 MG PO (21:08)
[2024-02-16] MEDS: levETIRAcetam 500 MG TABLET PO (21:08)
--- NOTE | 2024-02-16 21:15 | ECG_ITS ---
APPROVED REPORT Exam: Resting ECG HR:67 bpm ECG Measurements Heart Rate 67 AXES IL 184 P 31 QRSd 98 QRS -17 QT 404 T 93 QTc 419 Conclusion SINUS RHYTHM LAD Late R wave progression ABNORMAL ECG UNCONFIRMED REPORT Electronically signed by : Semja Patel MD 02/17/2024 19:30:04
[2024-02-16 22:24] LABS: Troponin I < 0.01 ng/ml (0.00-0.034)
[2024-02-17] VITALS: BP 144/89; PULSE 68; PULSE 70; RESP 16; TEMP 36.9; O2SAT 93
[2024-02-17 04:00] VITALS: BP 148/93; PULSE 69; PULSE 70; RESP 16; TEMP 37; O2SAT 96
--- NOTE | 2024-02-17 05:08 | PC.NURSE ---
Pt is alert to self only, pt understands she is in the hospital. Patient significant other states this is her baseline at home. Expressive aphasia from previous stroke. NIH negative. Pt ambulates to the restroom. Significant other remains at bedside throughout night. Significant other is curious about sleep apnea, states she thinks she may have this and is wondering if she could be referred to get tested. Pt has had no complaints this shift. No chest pain, sob, or pain. Tele shows sinus. Call light in reach.
[2024-02-17] MEDS: humaLOG 100 UNITS/ML 3ML VIAL (SSI) SQ ×2 (06:09→11:52)
[2024-02-17] MEDS: ACETAMINOPHEN 325MG TAB 650 MG PO (07:45)
[2024-02-17 07:47] LABS: Basophils # 0.1 K/mm3 (0-0.2); Basophils % 1.7 % (0.1-2.0); Eosinophils # 0.2 K/mm3 (0.0-0.4); Hemoglobin 13.9 g/dL (12.2-16.2); Lymphocytes # 1.5 K/mm3 (0.7-4.5); Lymphocytes % 33.4 % (10-50); Mean Corpuscular HGB Conc 32.4 g/dL (31.8-35.4); Mean Corpuscular Hemoglobin 28.3 pg (27.0-31.2); Mean Corpuscular Volume 87.2 fl (81-99); Mean Platelet Volume 8.2 fl (7.4-10.4); Monocytes # 0.2 K/mm3 (0.1-1.0); Monocytes % 4.3 % (1.7-9.3); Neutrophils # 2.6 K/mm3 (1.8-7.8); Neutrophils % 55.7 % (37.0-80.0); Platelet Count 204 K/mm3 (142-424); Red Blood Count 4.93 M/mm3 (4.20-5.40); Red Cell Distribution Width 14.5 % (11.5-17.5); White Blood Count 4.6 K/mm3 (4.8-10.8)
[2024-02-17 07:48] LABS: Chloride 109 mmol/L (98-107)
[2024-02-17 07:49] LABS: Sodium 142 mmol/L (136-145)
[2024-02-17 07:50] VITALS: BP 152/88; PULSE 79; RESP 18; TEMP 36.8; O2SAT 96
[2024-02-17 07:52] LABS: Blood Urea Nitrogen 13 mg/dl (7-17); Calcium 9.5 mg/dl (8.4-10.2); Carbon Dioxide 29 mmol/L (22.0-30.0); Creatinine Clearance Estimated 110 mL/min (50-200); Estimated Glomerular Filt Rate 74 ml/min (>60); GFR (African American) 89 ML/MIN (>60); Glucose 188 mg/dl (74-100)
[2024-02-17 08:00] VITALS: PULSE 100
--- NOTE | 2024-02-17 08:05 | HMH.PTEV ---
Physical Therapy Evaluation Rehab PT IP Evaluation Start: 02/17/24 01:14 Freq: ONCE Status: Active Protocol: Document 02/17/24 07:21 PATRICK (Rec: 02/17/24 07:36 PATRICK [email or web address]) Subjective/History History History Per H&P: This is A 58-year-old female with PMHx of 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 History obtained from patient and her family at bedside, who note that she has had headache since she woke up this morning. She also has had visual disturbance in her right eye, as she is seeing spots, and she feels off balance. She also notes that both of her legs feel weak and numb. She does have a history of expressive aphasia and residual right-sided deficits from prior stroke, but today she feeling really unusual and is concerned she could be having another stroke . She went to bed last night completely at her baseline around 10 PM. She woke up with symptoms this morning, tried to take a nap to get them to go away, but when she woke up from her nap they were still there. No other concerns noted, such as fevers , chills, cough, congestion, facial numbness, facial droop, chest pain, shortness of breath, abdominal pain, nausea , vomiting, changes bowel movements, urinary symptoms, rashes, or swelling. Admitted for further work up and monitoring. Subjective Subjective PLOF per pt report: Living with Partner in Single-story home with [address] home with R. Pt and partner are staying with Partner's Granddaughter just outside of town. Pt reports she was IND prior to hospitalization with no AD use . Pt reports worsening balance , CHIRINOS, and not feeling right leading to ER visit. Pt currently recieving PT at [facility] for balance and strength. 1 fall d/t LOB in past 30 days. New diagnosis of cancer in past 12 No months? Rehab PT IP Eval Objective Appearance Patient Behavior Appropriate,Cooperative Patient Orientation Person Difficulty following instructions none Speech Pattern Patient Baseline Ambulation Patient Able to Ambulate Yes Ambulation Observation IP General Gait Pattern Observation Wide Based Gait Ambulation Distance (feet) 20 Ambulation Assistive Device None Ambulation Ability Contact Guard/Hand Hold Balance Ability to Arise Able, uses arms to help Sitting Balance Steady, safe Standing Balance Steady, wide stance Transfers Bed Transfer Ability Contact Guard/Hand Hold Sit to Stand Bed Transfer Ability Minimal x 1 (25% assist) Rehab PT IP prob,goals,plan Problems Date of Evaluation: 02/17/24 PT IP Problems Transfers,Gait,Balance,Self care,Safety Rehab Potential Rehab Potential Good Equipment Needs Assistive Devices Rolling / Wheeled Walker Plan PT Intervention Plan Transfers,Gait,Balance,Safety, Therapeutic Exercise Other Intervention Plan 1-2 times PT Plan Frequency Daily Duration LOS Discharge Goals Bed Transfer Ability Independent Sit to Stand Chair Transfer Ability Supervision/Stand by Ambulation Assistive Device Rolling Walker Ambulation Distance (feet) 30 Discharge Plan PT Discharge Plan Initial physical therapy evaluation performed. Patient presents below baseline at this time in functional mobility, transfers and strength. Pt may benefit from RW use d/t dynamic standing balance deficits. Will trial RW this afternoon. Pt would benefit from skilled PT while at [facility] to prevent further functional decline and maximize safety with mobility. Pt safe to d/c home when deemed medically necessary d/t current level of mobility, home set-up, and family support. PT recommending pt continue OP PT services to address deficits. Eval Complexity Eval Charge Codes 11618 - Moderate Complexity PHYSICIAN CERTIFICATION: I certify the specified therapy services for Salena Dave are required, authorized, and reviewed every 30 days.
--- NOTE | 2024-02-17 08:13 | HMH.PHAINT1 ---
Pharmacy Intervention Comments: HOME MEDICATION LIST VERIFIED VIA OUTSIDE PHARMACY AND PATIENT
--- NOTE | 2024-02-17 09:14 | HMH.OTEV ---
OT Inpatient Evaluation Rehab OT IP Evaluation Start: 02/17/24 01:14 Freq: ONCE Status: Active Protocol: Document 02/17/24 09:07 EDISON (Rec: 02/17/24 09:[email or web address] Rehab OT IP Assessment Subjective History Per H&P: This is A 58-year-old female with PMHx of 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 History obtained from patient and her family at bedside, who note that she has had headache since she woke up this morning. She also has had visual disturbance in her right eye, as she is seeing spots, and she feels off balance. She also notes that both of her legs feel weak and numb. She does have a history of expressive aphasia and residual right-sided deficits from prior stroke, but today she feeling really unusual and is concerned she could be having another stroke . She went to bed last night completely at her baseline around 10 PM. She woke up with symptoms this morning, tried to take a nap to get them to go away, but when she woke up from her nap they were still there. No other concerns noted, such as fevers , chills, cough, congestion, facial numbness, facial droop, chest pain, shortness of breath, abdominal pain, nausea , vomiting, changes bowel movements, urinary symptoms, rashes, or swelling. Admitted for further work up and monitoring. Subjective PLOF per pt report: Living with Partner in Single-story home with [address] home with BHR. Pt and partner are staying with Partner's Granddaughter just outside of town. Pt reports she was IND prior to hospitalization with no AD use . Pt reports worsening balance , CHIRINOS, and not feeling right leading to ER visit. Pt also claims prior to being in the hospital she was independent with all ADLs. Pt currently recieving outpatient PT and OT at [facility] for balance, strength, and RUE deficits. 1 fall d/t LOB in past 30 days. Objective Patient Orientation Person Right Upper Extremity Gross ROM Min Limitation <25% Left Upper Extremity Gross ROM WFL Shoulder ROM Limitations Muscle Weakness Elbow ROM Limitations Muscle Weakness Wrist Limitations of Range of Motion Muscle Weakness Bed Mobility bed mobility-scooting,bed mobility - supine/sit Assist Level Minimal x 1 (25% assist) Transfer Training Sit/Stand Transfer Assist Level Minimal x 1 (25% assist) Rehab OT IP prob,goals,plan Problems Date of Evaluation: 02/17/24 OT IP Problems Bed Mobility,Transfers,Balance ,Self care,Safety Rehab Potential Rehab Potential Good Equipment Needs Assistive Devices Rolling / Wheeled Walker Plan OT intervention Plan Bed Mobility,Transfers,Balance ,Self care,Safety,Therapeutic Exercise OT Plan Frequency Daily Duration LOS Discharge Goals Bed Mobility Ability Standby Assistance Sit to Stand Chair Transfer Ability Contact Guard/Hand Hold Chair Transfer Ability Contact Guard/Hand Hold Chair Transfer Technique Sit to/from Ambulatory Chair Transfer Assistive Devices Rolling Walker Feeding Ability Assist with Tray Set Up Lower Body Dressing Ability Minimal Assistance Upper Body Dressing Ability Contact Guard Bathing Ability Contact Guard,Minimal Assistance Performing Toilet Hygiene Ability Minimal Assistance Overall Commode/Toilet Transfer Ability Contact Guard,Minimal Assistance Commode/Toilet Transfer Technique Sit to/from Ambulatory Commode/Toilet Transfer Assistive Grab Bars Devices Oral Care Assist Standby Assistance Decrease in Endurance No Discharge Plan OT Discharge Plan Patient presents below baseline at this time in functional transfers, ADL independence, and strength. Pt may benefit from RW use d/t dynamic standing balance deficits. Will trial RW this afternoon. Pt would benefit from skilled OT while at [facility] to prevent further functional decline and maximize safety. Pt safe to d/c home when deemed medically necessary d/t current level of mobility, home set-up, and family support. OT recommending pt continue OP OT services to address deficits. Eval Complexity Eval Charge Codes 69711 - Moderate Complexity PHYSICIAN CERTIFICATION: I certify the specified therapy services for Salena Dave are required, authorized, and reviewed every 30 days.
[2024-02-17] MEDS: IRBESARTAN 150MG TAB 150 MG PO (09:25)
[2024-02-17] MEDS: PREGABALIN 25MG CAPSULE 75 MG PO (09:25)
[2024-02-17] MEDS: CARVEDILOL 12.5MG TABLET 12.5 MG PO (09:26)
[2024-02-17] MEDS: levETIRAcetam 500 MG TABLET PO (09:26)
[2024-02-17] MEDS: humaLOG MIX 75/25 3ML FLEXPEN 22 UNIT SQ (09:26)
[2024-02-17] MEDS: CITALOPRAM 10MG TABLET 10 MG PO (09:26)
[2024-02-17] MEDS: APIXABAN 5MG TABLET 5 MG PO (09:26)
[2024-02-17] MEDS: LEVOTHYROXINE 50MCG (0.05MG) TAB 50 MCG PO (09:26)
--- NOTE | 2024-02-17 09:26 | MR_ITS ---
FINAL REPORT CLINICAL HISTORY: CVA. HISTORY OF STROKE COMPARISON: CTA head 02/16/2024 FINDINGS: Multiplanar MR imaging of the brain was performed without contrast. There is mild age-appropriate atrophy. There are scattered foci of increased T2 signal in the cerebral white matter that have a nonspecific appearance but likely represent mild chronic ischemic/gliotic changes. There is no evidence of intracranial hemorrhage or mass. No abnormal ventricular dilatation is identified. No abnormal extra-axial fluid collection is seen. There is a large left hemisphere area of encephalomalacia consistent with prior infarct. No acute abnormality is seen on the diffusion weighted images. The posterior fossa and brainstem are unremarkable. Normal major vessel vascular flow voids are seen. There is opacified left maxillary sinus and several left ethmoid air cells. IMPRESSION: Age-appropriate atrophy and mild chronic ischemic/gliotic changes. Prior infarct left hemisphere. No acute intracranial abnormality. Reviewed, Interpreted and Dictated by Fermin Maloney III, MD Transcribed by Nazanin Lanier Authenticated and [facility]
[2024-02-17 11:47] LABS: POC Glucose,Bedside 179 (70-110)
[2024-02-17 11:55] VITALS: BP 132/87; PULSE 76; RESP 20; TEMP 36.9; O2SAT 93
[2024-02-17 12:00] VITALS: PULSE 60
--- NOTE | 2024-02-17 14:05 | P.DS_ITS ---
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 History obtained from patient and her family at bedside, who note that she has had headache since she woke up this morning. She also has had visual disturbance in her right eye, as she is seeing spots, and she feels off balance. She also notes that both of her legs feel weak and numb. She does have a history of expressive aphasia and residual right-sided deficits from prior stroke, but today she feeling really unusual and is concerned she could be having another stroke. She went to bed last night completely at her baseline around 10 PM. She woke up with symptoms this morning, tried to take a nap to get them to go away, but when she woke up from her nap they were still there. No other concerns noted, such as fevers, chills, cough, congestion, facial numbness, facial droop, chest pain, shortness of breath, abdominal pain, nausea, vomiting, changes bowel movements, urinary symptoms, rashes, or swelling. Admitted for further work up and monitoring. Hospital Course Hospital Course Hospital Course: Patient was seen and evaluated at the bedside on the day of discharge. Patient wishes to be discharged. All patient questions were answered and patient was given time to ask questions. Patient was discharged in stable condition. Patient understands that she can return to ER in case of any sudden changes in health. Total time spent on DC - 38 mins 58-year-old female with PMHx of 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 Initial workup included CBC, CMP, troponin, TSH, T4, PT, PTT, urinalysis, viral swab, chest x- ray, EKG, CT head without contrast, and CT angiogram of the head and neck. Imaging reviewed. no acute hemorrhage. Patient has a prior area of encephalomalacia from her left MCA stroke. Radiologist reported concerns for significant intracranial stenosis, including bilateral posterior circulation as well as right MCA. This is in addition to her baseline left MCA. Per ED documentation and as a result of Neuroconsultation with Dr. Knowles? Jorge,?, PhD at recommendation for admission for MRI, since patient is outside of any TpA window and optimizing medical management on aspirin, statin, and Eliquis as long as there is no evidence of any concern for hemorrhage on there. - TIA/ stroke secondary to left [employer] stenosis: - deficits improved, MRI negative for acute CVA, follow up with neurologist as OP, referrral given, patient and family at bedside agrees with DC plans resume eliquis, statin and aspirin. IDDM with Hyperglicemia: - stable others chronic conditions HTN, CHF, Hypothyroidism, Seizure disorder: conditions reviewed,. Home medications regimen reconciled and resume continue monitoring on eliquis. Protonix for GI bleed protection Plan extensively discussed with patient and family. they agreed. Full code. Patient is stable for discharge and follow up with OP PT/OT and neurlogist, PCP in 1 -2 weeks Exam Data for Last 24 hours Vital signs and Labs for Last 24 Hours: Temp Pulse Resp BP Pulse Ox O2 Del Method 98.4 F 60 20 132/87 93 L Room Air 02/17/24 11:55 02/17/24 12:00 02/17/24 11:55 02/17/24 11:55 02/17/24 11:55 02/17/24 13:00 Laboratory Results - last 24 hr 02/16/24 15:36: WBC 6.2, RBC 4.72, Hgb 13.5, Hct 42.0, MCV 89.0, MCH 28.5, MCHC 32.0, RDW 14.6, Plt Count 209, MPV 7.9, Neut % (Auto) 58.2, Lymph % (Auto) 32.0, [place] % (Auto) 4.4, Eos % (Auto) 4.2, Baso % (Auto) 1.1, Neut # (Auto) 3.6, Lymph # (Auto) 2.0, [place] # (Auto) 0.3, Eos # (Auto) 0.3, Baso # (Auto) 0.1, PT 10.6, INR 0.98, APTT 31.8 H, Sodium 141, Potassium 3.8, Chloride 107, Carbon Dioxide 23, Anion Gap 14.8, BUN 14, Creatinine 0.90, Estimated Creat Clear 98, Estimated GFR 65, Est GFR ( Amer) 78, Glucose 202 H, Calcium 9.2, Total Bilirubin 0.7, AST 30, ALT 24, Alkaline Phosphatase 63, Troponin I < 0.01, Total Protein 6.8, Albumin 4.1, Globulin 2.7, Albumin/Globulin Ratio 1.5, TSH 0.48, Thyroxine (T4) 9.2 02/16/24 15:55: SARS-CoV-2 (PCR) Not detected, Influenza A Untype (PCR) Not detected, Influenza Type B (PCR) Not detected 02/16/24 16:30: Urine Color Yellow, Urine Appearance Clear, Urine pH 6.0, Ur Specific [place] >= 1.030, Urine Protein Negative, Urine Glucose (UA) Negative, Urine Ketones Negative, Urine Blood Negative, Urine Nitrate Negative, Urine Bilirubin Negative, Urine Urobilinogen 1.0, Ur Leukocyte Esterase Negative, Urine RBC None, Urine WBC None, Ur Squamous Epith Cells 3-5, Urine Bacteria Trace 02/16/24 19:00: Troponin I < 0.01 02/16/24 20:18: POC Glucose 175 H 02/16/24 21:50: Troponin I < 0.01 02/17/24 07:35: WBC 4.6 L D, RBC 4.93, Hgb 13.9, Hct 43.0, MCV 87.2, MCH 28.3, MCHC 32.4, RDW 14.5, Plt Count 204, MPV 8.2, Neut % (Auto) 55.7, Lymph % (Auto) 33.4, [place] % (Auto) 4.3, Eos % (Auto) 5.0, Baso % (Auto) 1.7, Neut # (Auto) 2.6, Lymph # (Auto) 1.5, [place] # (Auto) 0.2, Eos # (Auto) 0.2, Baso # (Auto) 0.1, Sodium 142, Potassium 4.0, Chloride 109 H, Carbon Dioxide 29, Anion Gap 8.0, BUN 13, Creatinine 0.80, Estimated Creat Clear 110, Estimated GFR 74, Est GFR ([facility] Amer) 89, Glucose 188 H, Calcium 9.5 02/17/24 11:33: POC Glucose 179 H I & O for Last 24 hours: Intake & Output 02/14/24 02/15/24 02/16/24 02/17/24 23:59 23:59 23:59 23:59 Intake Total 1098 / 1098 Output Total 0 / 0 Balance 1098 / 1098 Weight 89.613 kg 89.993 kg Constitutional Constitutional: no acute distress *Routine HEENT Exam Head: Present normocephalic Eye: Present EOMI and PERRL ENT: Present mucous membranes moist *Routine Neck Exam Neck: Present supple; Absent lymphadenopathy *Routine Respiratory Exam Respiratory: Present CTA bilaterally *Routine Cardiovascular Exam Cardiovascular: Present RRR *Routine Abdominal Exam Abdominal: Present soft and normoactive bowel sounds; Absent tenderness *Routine Extremities Exam Extremities: Absent cyanosis, clubbing or edema *Routine Skin Exam Skin: Present warm; Absent rash *Routine Neurological Exam Neurological: Present alert and oriented X3 Results Data Completed and Pending Labs on day of discharge: Labs from last 24 hours 02/17/24 02/17/24 02/16/24 11:33 07:35 21:50 WBC 4.6 L D RBC 4.93 Hgb 13.9 Hct 43.0 MCV 87.2 MCH 28.3 MCHC 32.4 RDW 14.5 Plt Count 204 MPV 8.2 Neut % (Auto) 55.7 Lymph % (Auto) 33.4 [place] % (Auto) 4.3 Eos % (Auto) 5.0 Baso % (Auto) 1.7 Neut # (Auto) 2.6 Lymph # (Auto) 1.5 [place] # (Auto) 0.2 Eos # (Auto) 0.2 Baso # (Auto) 0.1 PT INR APTT Sodium 142 Potassium 4.0 Chloride 109 H Carbon Dioxide 29 Anion Gap 8.0 BUN 13 Creatinine 0.80 Estimated Creat Clear 110 Estimated GFR 74 Est GFR ( Amer) 89 Glucose 188 H POC Glucose 179 H Calcium 9.5 Total Bilirubin AST ALT Alkaline Phosphatase Troponin I < 0.01 Total Protein Albumin Globulin Albumin/Globulin Ratio TSH Thyroxine (T4) Urine Color Urine Appearance Urine pH Ur Specific [place] Urine Protein Urine Glucose (UA) Urine Ketones Urine Blood Urine Nitrate Urine Bilirubin Urine Urobilinogen Ur Leukocyte Esterase Urine RBC Urine WBC Ur Squamous Epith Cells Urine Bacteria SARS-CoV-2 (PCR) Influenza A Untype (PCR) Influenza Type B (PCR) 02/16/24 02/16/24 02/16/24 20:18 19:00 16:30 WBC RBC Hgb Hct MCV MCH MCHC RDW Plt Count MPV Neut % (Auto) Lymph % (Auto) [place] % (Auto) Eos % (Auto) Baso % (Auto) Neut # (Auto) Lymph # (Auto) [place] # (Auto) Eos # (Auto) Baso # (Auto) PT INR APTT Sodium Potassium Chloride Carbon Dioxide Anion Gap BUN Creatinine Estimated Creat Clear Estimated GFR Est GFR ( Amer) Glucose POC Glucose 175 H Calcium Total Bilirubin AST ALT Alkaline Phosphatase Troponin I < 0.01 Total Protein Albumin Globulin Albumin/Globulin Ratio TSH Thyroxine (T4) Urine Color Yellow Urine Appearance Clear Urine pH 6.0 Ur Specific [place] >= 1.030 Urine Protein Negative Urine Glucose (UA) Negative Urine Ketones Negative Urine Blood Negative Urine Nitrate Negative Urine Bilirubin Negative Urine Urobilinogen 1.0 Ur Leukocyte Esterase Negative Urine RBC None Urine WBC None Ur Squamous Epith Cells 3-5 Urine Bacteria Trace SARS-CoV-2 (PCR) Influenza A Untype (PCR) Influenza Type B (PCR) 02/16/24 02/16/24 15:55 15:36 WBC 6.2 RBC 4.72 Hgb 13.5 Hct 42.0 MCV 89.0 MCH 28.5 MCHC 32.0 RDW 14.6 Plt Count 209 MPV 7.9 Neut % (Auto) 58.2 Lymph % (Auto) 32.0 [place] % (Auto) 4.4 Eos % (Auto) 4.2 Baso % (Auto) 1.1 Neut # (Auto) 3.6 Lymph # (Auto) 2.0 [place] # (Auto) 0.3 Eos # (Auto) 0.3 Baso # (Auto) 0.1 PT 10.6 INR 0.98 APTT 31.8 H Sodium 141 Potassium 3.8 Chloride 107 Carbon Dioxide 23 Anion Gap 14.8 BUN 14 Creatinine 0.90 Estimated Creat Clear 98 Estimated GFR 65 Est GFR ( Amer) 78 Glucose 202 H POC Glucose Calcium 9.2 Total Bilirubin 0.7 AST 30 ALT 24 Alkaline Phosphatase 63 Troponin I < 0.01 Total Protein 6.8 Albumin 4.1 Globulin 2.7 Albumin/Globulin Ratio 1.5 TSH 0.48 Thyroxine (T4) 9.2 Urine Color Urine Appearance Urine pH Ur Specific [place] Urine Protein Urine Glucose (UA) Urine Ketones Urine Blood Urine Nitrate Urine Bilirubin Urine Urobilinogen Ur Leukocyte Esterase Urine RBC Urine WBC Ur Squamous Epith Cells Urine Bacteria SARS-CoV-2 (PCR) Not detected Influenza A Untype (PCR) Not detected Influenza Type B (PCR) Not detected DS: Diagnosis Discharge Diagnosis (1) TIA (transient ischemic attack): Status: Acute Code(s): G45.9 - Transient cerebral ischemic attack, unspecified (2) Stroke: Status: Chronic Code(s): I63.9 - Cerebral infarction, unspecified Qualifiers: CVA mechanism: stenosis Precerebral and cerebral artery: posterior cerebral artery Laterality of affected vessel: left Qualified Code(s): I63.532 - Cerebral infarction due to unspecified occlusion or stenosis of left posterior cerebral artery (3) Type 2 diabetes mellitus with diabetic neuropathy: Status: Chronic Code(s): E11.40 - Type 2 diabetes mellitus with diabetic neuropathy, unspecified Qualifiers: 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 long-term insulin use: with long-term use Qualified Code(s): E11.40 - Type 2 diabetes mellitus with diabetic neuropathy, unspecified; Z79.4 - shelter (current) use of insulin (4) Heart failure: Status: Acute Code(s): I50.9 - Heart failure, unspecified Qualifiers: Heart failure type: unspecified Heart failure chronicity: unspecified Qualified Code(s): I50.9 - Heart failure, unspecified (5) Hypertension: Status: Chronic Code(s): I10 - Essential (primary) hypertension Qualifiers: Hypertension type: unspecified Qualified Code(s): I10 - Essential (primary) hypertension (6) Kidney disease: Status: Acute Code(s): N28.9 - Disorder of kidney and ureter, unspecified (7) Hypothyroidism: Status: Chronic Code(s): E03.9 - Hypothyroidism, unspecified Qualifiers: Hypothyroidism type: unspecified Qualified Code(s): E03.9 - Hypothyroidism, unspecified (8) Seizure: Status: Chronic Code(s): R56.9 - Unspecified convulsions Meds Home Medications and Allergies Home Medications Medication Instructions Recorded Confirmed Type glimepiride 4 mg tablet 4 mg PO DAILY #90 tabs 10/21/23 02/16/24 Rx levothyroxine 50 mcg tablet 50 mcg PO DAILY #90 tabs 10/21/23 02/16/24 Rx (Synthroid) losartan 100 mg tablet 100 mg PO DAILY #90 tabs 10/21/23 02/16/24 Rx escitalopram oxalate 5 mg tablet 5 mg PO DAILY #90 tabs 10/22/23 02/16/24 Rx rosuvastatin 20 mg tablet 20 mg PO QHS 12/02/23 02/16/24 History semaglutide 1 mg/dose (4 mg/3 mL) 1 mg (0.75 mL) SQ WEEKLY #3 mL 12/31/23 02/16/24 Rx subcutaneous pen injector (Ozempic) carvedilol 12.5 mg tablet 12.5 mg PO BID #180 tabs 01/23/24 02/16/24 Rx ergocalciferol (vitamin D2) 1,250 1,250 mcg PO WEEKLY #14 caps 01/23/24 02/16/24 Rx mcg (50,000 unit) capsule levetiracetam 500 mg tablet 500 mg PO BID #180 tabs 01/23/24 02/16/24 Rx pregabalin 75 mg capsule (Lyrica) 75 mg PO BID #60 caps 02/04/24 02/16/24 Rx apixaban 5 mg tablet (Eliquis) 5 mg PO BID #180 tabs 02/12/24 02/16/24 Rx insulin aspar prot-insulin aspart 22 unit SQ BID 02/16/24 02/17/24 History 100 unit/mL (70-30) subcutaneous pen (Novolog Mix 70-30FlexPen U-100) insulin glargine 100 unit/mL (3 40 unit SQ HS 02/16/24 02/17/24 History mL) subcutaneous pen (Lantus Solostar U-100 Insulin) New Prescriptions to Start Prescriptions: Allergies Allergy/AdvReac Type Severity Reaction Status Date / Time No Known Allergies Allergy Verified 02/04/24 15:02 Discharge Plan Disposition Patient Disposition: Home, Self-Care Condition: Fair Follow up Plan Follow up with: Margoth Brand PA [Primary Care Provider] - 03/02/24 11:00 am Humera Frances MD [Staff Physician] - 05/11/24 10:00 am Prescriptions/Medication Reconciliation: Continued glimepiride 4 mg tablet 4 mg PO DAILY Qty: 90 3RF losartan 100 mg tablet 100 mg PO DAILY Qty: 90 3RF levothyroxine [Synthroid] 50 mcg tablet 50 mcg PO DAILY Qty: 90 3RF rosuvastatin 20 mg tablet 20 mg PO QHS pregabalin [Lyrica] 75 mg capsule 75 mg PO BID Qty: 60 2RF Ozempic 1 mg/dose (4 mg/3 mL) pen injector 1 mg SQ WEEKLY Qty: 3 2RF escitalopram oxalate 5 mg tablet 5 mg PO DAILY Qty: 90 3RF carvedilol 12.5 mg tablet 12.5 mg PO BID Qty: 180 0RF Rx Instructions: must administer with a meal/food levetiracetam 500 mg tablet 500 mg PO BID Qty: 180 0RF ergocalciferol (vitamin D2) 1,250 mcg (50,000 unit) capsule 1,250 mcg PO WEEKLY Qty: 14 3RF Eliquis 5 mg tablet 5 mg PO BID Qty: 180 0RF insulin asp prt-insulin aspart [Novolog Mix 70-30FlexPen U-100] 100 unit/mL (70-30) insulin pen 22 unit SQ BID Rx Instructions: Use with 2 largest meals of the day insulin glargine [Lantus Solostar U-100 Insulin] 100 unit/mL (3 mL) insulin pen 40 unit SQ HS Problem Reconciliation Problems Reviewed?: Yes Patient Discharge Instructions ACTIVITY: Ambulate as tolerated DIET: continue same diet Patient Instructions: DI for Transient Ischemic Attack Providers Primary Care Provider: Margoth Brand Admit Provider: Seb Shaw Attending Provider: Seb Shaw
--- NOTE | 2024-02-18 11:47 | SW/DCPLANNER ---
Follow up phone call: patient's significant other stated that she is doing well at home at this time. Significant other is aware of all follow up appointments for this patient. No further needs/questions at this time.
== END 2024-02-17 15:01 | disposition home or self-care (01) ==
LOC: ER 16:02 → 2ND 19:05
PROVIDERS: Admitting Provider Internal Medicine; Emergency Provider Emergency Medicine; PCP Physician Assistant; Visit Provider Internal Medicine
DX: G45.8 Other transient cerebral ischemic attacks and related syndromes (principal); E11.40 Type 2 diabetes mellitus with diabetic neuropathy, unspecified; Z79.01 Long term (current) use of anticoagulants; E03.9 Hypothyroidism, unspecified; I50.9 Heart failure, unspecified; E78.5 Hyperlipidemia, unspecified; N18.9 Chronic kidney disease, unspecified; I69.320 Aphasia following cerebral infarction; Z79.4 Long term (current) use of insulin; Z79.899 Other long term (current) drug therapy; I69.351 Hemiplegia and hemiparesis following cerebral infarction affecting right dominant side; I13.0 Hypertensive heart and chronic kidney disease with heart failure and stage 1 through stage 4 chronic kidney disease, or unspecified chronic kidney disease; E11.22 Type 2 diabetes mellitus with diabetic chronic kidney disease; E11.65 Type 2 diabetes mellitus with hyperglycemia; G40.909 Epilepsy, unspecified, not intractable, without status epilepticus
CPT/HCPCS: 36415; 70450; 70496; 70498; 70551; 71045; 80048; 80053; 81001; 82962; 84436; 84443; 84484; 85025; 85610; 85730; 87636; 93005; 97162; 97166; 99285; G0378; Q9967

== ENCOUNTER 2024-02-20 11:41 | Day surgery (SDC) | payer MEDICARE, OTHER, SELFPAY ==
[2024-02-20] VITALS (9 sets, daily range): BP systolic 120–172; BP diastolic 73–103; PULSE 64–98; RESP 15–18; TEMP 36.3–37; O2SAT 94–99; BMI 30.1
--- NOTE | 2024-02-20 11:53 | ED_ITS ---
Discharge Plan Disposition Patient Disposition: Still a Patient Clinical Impressions Clinical Impression: Dysphagia Discharge ED Provider: Ricardo Sultana General Adult HPI General Chief complaint: PAIN Stated complaint: choked on food Time Seen by Provider: 02/20/24 11:46 History of Present Illness HPI narrative: Patient is a 58-year-old female with past medical history of CVA with right- sided residual, expressive aphasia who presents emergency department for evaluation of esophageal foreign body sensation. Patient took a single bite of steak prior to arrival after 11:00 and felt it stuck in her throat. No difficulty breathing. She has attempted to swallow water with success however the sensation persists. Related Data Home Medications Medication Instructions Recorded Confirmed rosuvastatin 20 mg tablet 20 mg PO QHS 12/02/23 02/16/24 insulin aspar prot-insulin aspart 22 unit SQ BID 02/16/24 02/17/24 100 unit/mL (70-30) subcutaneous pen (Novolog Mix 70-30FlexPen U-100) insulin glargine 100 unit/mL (3 40 unit SQ HS 02/16/24 02/17/24 mL) subcutaneous pen (Lantus Solostar U-100 Insulin) Previous Rx's Medication Instructions Recorded glimepiride 4 mg tablet 4 mg PO DAILY #90 tabs 10/21/23 levothyroxine 50 mcg tablet 50 mcg PO DAILY #90 tabs 10/21/23 (Synthroid) losartan 100 mg tablet 100 mg PO DAILY #90 tabs 10/21/23 escitalopram oxalate 5 mg tablet 5 mg PO DAILY #90 tabs 10/22/23 semaglutide 1 mg/dose (4 mg/3 mL) 1 mg (0.75 mL) SQ WEEKLY #3 mL 12/31/23 subcutaneous pen injector (Ozempic) carvedilol 12.5 mg tablet 12.5 mg PO BID #180 tabs 01/23/24 ergocalciferol (vitamin D2) 1,250 1,250 mcg PO WEEKLY #14 caps 01/23/24 mcg (50,000 unit) capsule levetiracetam 500 mg tablet 500 mg PO BID #180 tabs 01/23/24 pregabalin 75 mg capsule (Lyrica) 75 mg PO BID #60 caps 02/04/24 apixaban 5 mg tablet (Eliquis) 5 mg PO BID #180 tabs 02/12/24 Allergies Allergy/AdvReac Type Severity Reaction Status Date / Time No Known Allergies Allergy Verified 02/04/24 15:02 [facility] Disclaimer: The information contained in this section may have been updated after the patient was seen, as this information can be updated by other users. Medical History Urinary leakage Persistent complex bereavement disorder Adjustment disorder with depressed mood History of stroke Heart failure Kidney disease 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, type 2 Hypertension Surgical History Hx of total thyroidectomy Hx of hysterectomy History of colonoscopy Family History Father Heart disease Mother Stroke Social History Smoking Status: Never smoker alcohol intake: never substance use type: denies use current occupational status: unemployed and disabled Travel in the last 8 weeks: None number of children: 4 ROS Obtained: Yes Systems reviewed as appropriate & no additional complaints except as documented Physical Exam General General appearance: alert and in no apparent distress Head Head exam: atraumatic and normocephalic Eye Eye exam: Present PERRL and EOMI ENT ENT exam: Present mucous membranes moist Neck Neck exam: Present normal inspection Chest Chest inspection: Present normal inspection and symmetric chest wall rise Respiratory Respiratory exam: Present normal lung sounds bilaterally; Absent respiratory distress Cardiovascular Cardiovascular exam: Present regular rate and normal rhythm Abdominal Exam Abdominal exam: Present soft Extremities Exam Extremities exam: Present normal inspection Neurological Exam Neurological exam: Present alert Psychiatric Psychiatric exam: Present normal affect Skin Skin exam: Present warm and dry Medical Decision Making Medical Records Medical records reviewed: Yes I reviewed the patient's medical records. Chandan Inquiry Pt receiving controlled substance: No Vital Signs: 02/20/24 11:42 02/20/24 11:47 02/20/24 12:00 Temperature 98.6 F Temperature Source Oral Pulse Rate 66 74 Pulse Rate [Left Radial] 64 Respiratory Rate 15 Blood Pressure 172/92 H 163/103 H Blood Pressure [Right Arm] 172/92 H Blood Pressure Mean [Right Arm] 118 02 Sat by Pulse Oximetry 98 96 96 Oxygen Delivery Method Room Air Room Air 02/20/24 12:33 Temperature 98.6 F Temperature Source Oral Pulse Rate 98 H Pulse Rate [Left Radial] Respiratory Rate 16 Blood Pressure 166/89 H Blood Pressure [Right Arm] Blood Pressure Mean [Right Arm] 02 Sat by Pulse Oximetry Oxygen Delivery Method Room Air Lab Data Lab Results 02/20/24 12:00: WBC 5.7, RBC 4.84, Hgb 14.0, Hct 42.9, MCV 88.7, MCH 28.8, MCHC 32.5, RDW 14.8, Plt Count 194, MPV 8.0, Neut % (Auto) 67.7, Lymph % (Auto) 22.0, [place] % (Auto) 3.6, Eos % (Auto) 5.6, Baso % (Auto) 1.1, Neut # (Auto) 3.9, Lymph # (Auto) 1.3, [place] # (Auto) 0.2, Eos # (Auto) 0.3, Baso # (Auto) 0.1, Sodium 141, Potassium 4.3, Chloride 108 H, Carbon Dioxide 30, Anion Gap 7.3, BUN 14, Creatinine 0.90, Estimated Creat Clear 98, Estimated GFR 65, Est GFR ( Amer) 78, Glucose 245 H, Calcium 9.1, Total Bilirubin 0.5, AST 29, ALT 26, Alkaline Phosphatase 63, Total Protein 6.9, Albumin 4.1, Globulin 2.8, Albumin/Globulin Ratio 1.5 02/20/24 12:54: POC Glucose 229 H 02/20/24 12:00 02/20/24 12:00 Orders (Tests/Meds): ORDERS Category Date Time Status CBC w/Auto Diff [Complete Blood Count Auto Diff] Stat Lab 02/20/24 12:00 Completed CMP [Comprehensive Metabolic Panel] Stat Lab 02/20/24 12:00 Completed POC Glucose,Bedside Routine Lab 02/20/24 12:54 Completed ECG Data Tracing #1: Independently interpreted by me, rate 64, rhythm is regular, axis is borderline leftward deviated, no ST elevation in anatomical contiguous leads, QTc 414. Medical Decision Narrative: In summary patient is a 58-year-old female with past medical history described above who presents emergency department for evaluation of suspected food bolus. Patient is hemodynamically stable nontoxic-appearing upon arrival, afebrile. Patient is able to swallow water. Multiple attempts to clear the sensation conducted at bedside including touch and swallowing which were unsuccessful. The case was discussed with general surgery given that we could proceed with CT scan or EGD. EGD was recommended. Basic hematologic labs will be obtained. EKG will be obtained. Patient was transferred to the OR in stable condition. Critical Care Critical Care Time Critical Care Time: No
--- NOTE | 2024-02-20 11:55 | PC.NURSE ---
paged dr painter
--- NOTE | 2024-02-20 11:55 | PC.NURSE ---
Dr Sultana speaking to Dr Chew
--- NOTE | 2024-02-20 12:01 | PC.NURSE ---
Pre op called advised they would be down to get pt.
--- NOTE | 2024-02-20 12:06 | P.PNANES_ITS ---
[facility] Disclaimer: The information contained in this section may have been updated after the patient was seen, as this information can be updated by other users. Medical History Urinary leakage Persistent complex bereavement disorder Adjustment disorder with depressed mood History of stroke Heart failure Kidney disease 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, type 2 Hypertension Surgical History Hx of total thyroidectomy Hx of hysterectomy History of colonoscopy Family History Father Heart disease Mother Stroke Social History Smoking Status: Never smoker alcohol intake: never substance use type: denies use current occupational status: unemployed and disabled Travel in the last 8 weeks: None number of children: 4 [facility] Anesthesia Checklist Patient Identification Patient Identification: Arm Band and Verbal (Name & ) Structural Data Admitted From: Emergency Dept Planned Operative Procedure/s: EGD Consent for Planned Operative Procedure(s) Verified: Yes NPO Status Verified Time NPO: 08:30 Additional verifications Anesthesia Reactions: No Airway Assessment Mallampati Score:: Class II C-Spine Mobility Assessed: Yes TMJ Mobility Assessed: Yes Dentition: Poor Dentition Neurological Assessment Level of Consciousness: Awake Hx Seizures: Yes Numbness or tingling in extremities: Yes Anesthesia Plan Anesthesia Risk discussed: Yes Anesthesia Plan: Verified ASA Class: III (E) Anesthesia Type: MAC
[2024-02-20 12:16] LABS: Basophils # 0.1 K/mm3 (0-0.2); Basophils % 1.1 % (0.1-2.0); Eosinophils # 0.3 K/mm3 (0.0-0.4); Eosinophils % 5.6 % (0.1-12.0); Hematocrit 42.9 % (37.0-47.0); Lymphocytes # 1.3 K/mm3 (0.7-4.5); Mean Corpuscular HGB Conc 32.5 g/dL (31.8-35.4); Mean Corpuscular Hemoglobin 28.8 pg (27.0-31.2); Mean Corpuscular Volume 88.7 fl (81-99); Monocytes # 0.2 K/mm3 (0.1-1.0); Monocytes % 3.6 % (1.7-9.3); Neutrophils # 3.9 K/mm3 (1.8-7.8); Neutrophils % 67.7 % (37.0-80.0); Platelet Count 194 K/mm3 (142-424); Red Blood Count 4.84 M/mm3 (4.20-5.40); Red Cell Distribution Width 14.8 % (11.5-17.5); White Blood Count 5.7 K/mm3 (4.8-10.8)
[2024-02-20 12:20] LABS: Chloride 108 mmol/L (98-107); Potassium 4.3 mmoL/L (3.5-5.1); Sodium 141 mmol/L (136-145)
[2024-02-20 12:23] LABS: Alanine Aminotransferase 26 U/L (12-78); Albumin Level 4.1 g/dl (3.5-5.0); Albumin/Globulin Ratio 1.5 (1.1-1.8); Alkaline Phosphatase 63 U/L (38-126); Anion Gap 7.3 mEq/L (5-15); Aspartate Amino Transferase 29 U/L (14-36); Bilirubin,Total 0.5 mg/dl (0.2-1.3); Blood Urea Nitrogen 14 mg/dl (7-17); Carbon Dioxide 30 mmol/L (22.0-30.0); Creatinine Clearance Estimated 98 mL/min (50-200); Estimated Glomerular Filt Rate 65 ml/min (>60); GFR (African American) 78 ML/MIN (>60); Globulin 2.8 g/dL (1.3-3.2); Total Protein,Serum 6.9 g/dl (6.3-8.2)
[2024-02-20 12:24] LABS: Calcium 9.1 mg/dl (8.4-10.2); Glucose 245 mg/dl (74-100)
[2024-02-20 13:01] LABS: POC Glucose,Bedside 229 (70-110)
--- NOTE | 2024-02-20 13:15 | [facility].SCOPE ---
Procedure: Date: 02/20/24 Patient Date of :: 1965 Procedure Performed:: Esophagogastroscopy for esophageal foreign body Indications:: Esophageal foreign body Performing Provider:: Chris Chew MD Referring Provider:: [facility] emergency department Sedation:: Monitored anesthesia care Procedure:: After informed consent was obtained the patient was taken to the endoscopy suite. Sedation ensued after the patient was transferred to the left lateral decubitus position. Pulse, blood pressure, and oxygen saturation were monitored throughout the procedure. The endoscope was advanced into the gastric lumen. Retroflexion within the gastric lumen was accomplished. The gastroscope was carefully removed and the patient was transferred to recovery in stable condition. Please see findings and specimens below for detail. Findings:: Somewhat tortuous esophagus Severe focal inflammatory changes at gastroesophageal junction consistent with recent esophageal foreign body Large volume food particles within gastric lumen No retained foreign body within esophagus (likely spontaneous passage upon sedation) Specimens:: none Recommendations:: May require repeat dysphagia evaluation Continue recommendations as per recent dysphagia evaluation/speech therapy Complications:: No immediate Estimated blood obtained (mL): 0 Colonoscopy Component Colonoscopy Component Was a colonoscopy performed during today's procedure?: No
== END 2024-02-20 13:55 | disposition home or self-care (01) ==
LOC: ER 12:02 → SDC 12:35
PROVIDERS: Emergency Provider Emergency Medicine; PCP Physician Assistant; Visit Provider Surgery
PROC: 0DJ08ZZ Inspection of Upper Intestinal Tract, Via Natural or Artificial Opening Endoscopic (ICD-10-PCS; CPT 43235; principal; 2024-02-20 12:45)
DX: R09.A2 Foreign body sensation, throat (principal); K22.89 Other specified disease of esophagus; E11.9 Type 2 diabetes mellitus without complications
CPT/HCPCS: 43247; 80053; 82962; 85025; 93005

== ENCOUNTER → 2024-03-03 09:00 | Outpatient (RCR) | payer MEDICARE, OTHER, SELFPAY ==
--- NOTE | 2023-11-28 11:39 | HMH.SLAPHASI ---
Speech & Language Evaluation Speech/Language Aphasia Evaluation Start: 11/28/23 11:19 Freq: once Status: Complete Protocol: Document 11/28/23 11:19 VICK (Rec: 11/28/23 11:39 [facility] [id number]) Aphasia Assessment/Goals/Plan Assessment Date of Evaluation: 11/28/23 Evaluation Type Initial Certification Assessment/Problems h/o CVA, expressive aphasia per MD order. Does Patient Qualify for Service Yes Qualify/Failure Comment Based on assessment results, Salena Dave would benefit from skilled speech therapy services 2x/week to address severe expressive aphasia in order to improve her expressive language skills to a functional level in a efficient/effective manner across multiple settings and environments. Plan Pt will be seen # times/week 2 for # weeks 12 Anticipate reaching STG in # weeks 8 Anticipate reaching LTG in # weeks 12 Pt/Guardian verbally ack understanding Yes of dx/prognosis/goals G -code Required No STG-Auditory Comprehension Paragraph Level 80 2nd Element 80 STG-Verbal Expressive Language Automatic Speech 70 Sentence Completion 75 Repetitive Abilities 70 Word Naming 70 STG-Written Language Copy Shapes 75 Dry Pan Charger Goals Increase verbal expression skills to Yes: 75% communicate w/family & friends. Education Instructions provided Discussed preliminary assessment results and POC with patient and caregiver both of which expressed understanding. Pt/Caregiver Able to Recall Information Able to recall/restate Reinforcement needed No Speech & Language HPI History Present Illness Description of Patient Problem 58-year-old female with history of left-sided CVA with residual expressive aphasia currently on Eliquis. PMH includes: 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, type 2 Heart failure, Hypertension, and Kidney disease. Pt/Caregiver Concerns Reports of difficulty expressive her wants/needs, as well as, her thoughts and ideas effectively; word finding difficulties, and at times difficulty with receptive comprehension. Rehab Services Assessed Speech therapy Language [place] Lang/Spoken in Home [place] Education/Learning/Family Last School Grade Completed 12th Therapy History Other Specialists? Yes Who/When/Recommendations PT/OT at [facility] Aphasia Evaluations Communication Auditory Comprehension Yes: Word Level Sentences No: Following Directions Paragraph Conversation Reading Comprehension No: Letter Naming Word Naming Verbal Expressive Language No: Automatic Speech Completing Sentences Repetition Abilities Word Level Naming Written Language No: Signature Copy Shapes Copy Words Attending/Orientation/Memory No: Orientation Attention/Concentration Memory Congnitive/Linguistic Skills No: Thought Organization Additional Evaluation(s) Additional Tests Ms. Salena Dave was administered the QAB (Quick Aphasia Battery) at this date. The Quick Aphasia Battery ( QAB) is made up of eight subtests, each comprising sets of items that probe different language domains, vary in difficulty, and are scored with a graded system to maximize the informativeness of each item. From the eight subtests, eight summary measures are derived, which constitute a multidimensional profile of language function, quantifying strengths and weaknesses across core language domains. [place] scores were as follows: Word Comprehension: 9.17, mild to no aphasia Sentence Comprehension: 0, severe aphasia Word Findin.67, severe aphasia Grammatical Construction: 4.63 , severe aphasia Speech Motor Programmin, moderate aphasia Repetition: 1.25, severe aphasia Readin.83, severe aphasia QAB Overall: 4.01, severe aphasia Salena had strengths in her ability to communicate her needs when provided with a field of two options and ability to identify desired word. However, when context is unknown or in an unstructured environment, she will be presented with high level difficulty obstacles 2' her anomia, empty speech, and significant paraphasias across her expressive aphasia deficit. She was unable to independently answer most questions throughout the assessment and was unable to imitate simple [facility] words. She had difficulty following complex commands, and required repetitions of simple 2-3 step commands. Secondary to her aphasia connected speech impairment [place] communicatiion is limited in which she is unable to take part in everyday topics 2' deficits found across the assessment. She had strengths in single word comprehension and receptive identification. However, complex yes/no questions were found to be difficulty for her. She was unable to expressively ID everyday objects. Based on these observations, she would benefit from skilled speech therapy services to improve her expressive language skills . PHYSICIAN CERTIFICATION: I certify the specified therapy services for Salena Dave are required, authorized, and reviewed every 30 days.
== END ==
LOC: ST 11-28 09:09
PROVIDERS: PCP Physician Assistant; Visit Provider Physician Assistant
DX: R47.01 Aphasia (principal); Z86.73 Personal history of transient ischemic attack (TIA), and cerebral infarction without residual deficits
CPT/HCPCS: 92507; 92523

== ENCOUNTER → 2024-03-03 10:00 | Outpatient (RCR) | payer MEDICARE, OTHER, SELFPAY ==
--- NOTE | 2023-11-05 13:46 | HMH.PTOPEV ---
PT Outpatient Evaluation Rehab PT Outpatient Evaluation Start: 11/05/23 10:56 Freq: Status: Active Protocol: Document 11/05/23 10:56 JUDI (Rec: 11/05/23 13:45 JUDI [id number]) E-signed By Xavi Mcdowell, PT Outpatient Therapy Subjective History Subjective History Patient is a 58 year old female presenting to outpatient PT with reports of BLE weakness, poor balance and decreased endurance. Patient /caregiver reports CVA in 2020 followed by multiple TIA's. Main complaint at this time is BLE weakness and poor balance . Patient currently experiencing RUE/RLE neglect, as well as espressive aphasia. Comorbidities include hx of HTN, diabetes, thyroidectomy, CKD and hysterectomy. New diagnosis of cancer in past 12 No months? Chief Complaint Weakness,Decreased Coordination Symptom Type Other Symptoms Relieved By Rest/Positioning Symptoms Aggravated By Standing,Physical Activity, Walking Prior Functional Limitations None Current Functional Limitations Housework,Standing,Squatting, Recreation Activity,Walking, Stairs,Balance Hip/Knee Eval MMT bilateral Hip Flexion Strength Grade 4 Good Hip Abduction Strength Grade 4 Good Hip Adduction Strength Grade 4 Good Hip Extension Strength Grade 4 Good Gluteus Jc Strength Grade 4 Good Hip External Rotation Strength Grade 4 Good Hip Internal Rotation Strength Grade 4 Good Knee Extension Strength Grade 4 Good Knee Flexion Strength Grade 4 Good ROM Hip ROM Reason Not Measured Within Functional Limits Knee ROM Reason Not Measured Within Functional Limits Balance Eval Subjective Hx of Complaint Comment Difficulty with all standing/ ambulatory activities. Prior Functional Limitations Prior Functional [place] Level Standing/ambulation Current Functional Limitations Comment Standing/ambulation Hx of Falls Hx Falls Yes Number in last 6 months 2 Gait/Posture Asssessment General Gait Observation Wide Based Gait Assistive Devices None / NA Dynamic Gait Index Test Protocol Gait Level Surface Mild Impairment Query Text: Instructions: Walk at your normal speed from here to the next dheeraj (20'). Grading: Dheeraj the lowest category that applies. Change in Gait Speed Mild Impairment Query Text: Instructions: Begin walking at your normal pace (for 5'), when I tell you go , walk as fast as you can (for 5'). When I tell you slow , walk as slowly as you can (for 5'). Grading: Dheeraj the lowest category that applies. Gait with Horizontal Head Turns Moderate Impairment Query Text: Instructions: Begin walking at your normal pace. When I tell you to look right , keep walking straight, but turn you head to the right. Keep looking to the right unit I tell you look left , then keep walking straight and turn your head to the left. Keep your head to the left until I tell you look straight , then keep walking straight, but return you head to the center. Grading: Dheeraj the lowest category that applies. Gait with Vertical Head Turns Moderate Impairment Query Text: Instructions: Begin walking at your normal pace. When I tell you to look up , keep walking staight, but tip your head up. Keep looking up until I tell you to look down , then keep walking straight and tip your head down. Keep your head down until I tell you look straight , then keep walking straight, but return your head to the center. Grading: Dheeraj the lowest category that applies. Gait and Pivot Turn Mild Impairment Query Text: Instructions: Begin walking at your normal pace. When I tell you turn and stop , turn as quickly as you can to face the opposite direction and stop. Grading: Dheeraj the lowest category that applies. Step Over Obstacle Moderate Impairment Query Text: Instructions: Begin walking at your normal speed. When you come to the shoebox, step over it, not around it and keep walking. Grading: Dheeraj the lowest category that applies. Step Around Obstacles Moderate Impairment Query Text: Instructions: Begin walking at normal speed. When you come to the first cone (about 6' away), walk around the right side of it. When you come to the second cone (6' past first cone), walk around it to the left. Grading: Dheeraj the lowest category that applies. Steps Moderate Impairment Query Text: Instructions: Walk up these stairs as you would at home. At the top, turn around and walk down. Grading: Dheeraj the lowest category that applies. Scoring Dynamic Gait Index Score 11 Outpatient Therapy Assessment Impairments Problems/Impairmments Impaired Strength,Impaired Endurance,Impaired Transfers, Impaired Gait Pattern,Impaired Walking,Impaired Standing, Impaired Lifting,Impaired Household Care,Impaired Stair Climbing,Impaired Incline Stepping,Impaired Stepping on Uneven Surface,Impaired Squatting,Impaired Bending, Impaired Recreational Activities,Impaired Balance, Impaired DGI Score,Subjective C/O Pain Prognosis Rehab Potential Good Clinical Impression Consistent with Diagnosis Yes Short Term Goals Number of Weeks 2 Patient to be Ind w/ HEP Yes Fpc Goals Number of Weeks 4-6 Increase Strength Yes: BLE 5/5 Increase Ability to Walk Yes: 30 min without difficulty Increase Ability to Stand Yes: Improve Ability For Household Care Yes Improve Ability to Climb Stairs Yes: 1 flight without difficulty Increase DGI Score Yes: Low fall risk Outpatient Therapy Plan of Care Treatment Plan May Include Therapeutic Exercise Including Home Yes Exercise Program Manual Therapy Techniques Yes Neuromuscular Re-education Yes Therapeutic Activities to Return to Yes Previous Functional/Work Level Gait Training Yes ADL/Self Care Education Yes Dry Needling Yes Thermal Modalities Yes Electrical Stimulation Yes Ultrasound/Phonophoresis Yes Iontophoresis Yes Orthotics/Bracing/Splinting Yes Vasopneumatic Compression Pump Yes Massage Yes Eval/Re-Eval Yes Aquatic Therapy Yes Frequency Times per week 2 Duration Number of Weeks 4-6 Addendums This patient is a candidate for social No or vocational rehab? Patient/Guardian verbally acknowledges Yes understanding of treatment program and consents to further treatment? Patient/Guardian verbally acknowledges Yes understanding of diagnosis, prognosis and goals for treatment? Eval Complexity PT Charges 89063 - Moderate Complexity Shoulder/Elbow Eval Shoulder Objective Measurements Elbow Objective Measurements PHYSICIAN CERTIFICATION: I certify the specified therapy services for Salena Dave are required, authorized, and reviewed every 30 days.
== END ==
LOC: PT 11-05 09:44
PROVIDERS: PCP Physician Assistant; Visit Provider Physician Assistant
DX: R47.01 Aphasia (principal); Z86.73 Personal history of transient ischemic attack (TIA), and cerebral infarction without residual deficits
CPT/HCPCS: 97110; 97112; 97116; 97163; 97164; 97530; 97535

== ENCOUNTER → 2024-03-03 11:00 | Outpatient (RCR) | payer MEDICARE, OTHER, SELFPAY ==
--- NOTE | 2023-10-27 11:16 | HMH.OTOPEV ---
OT Inpatient Evaluation Rehab OT Outpatient Eval Start: 10/27/23 10:33 Freq: Status: Active Protocol: Document 10/27/23 10:33 RMAR[facility]ALL (Rec: 10/27/23 11:14 [facility] [id number]) E-signed By Ibis Quiroz, OT Outpatient Therapy Subjective History Subjective History Pt is a 58 year old female who reports to therapy for initial evaluation following a CVA. Pt is accompanied by her significant other whom she lives with. S/O provides information about her level of functioning due to patients expressive aphasia. Pt initially had stroke in of 2020. Pt lived in [place] at this time. Pt did not have any type of short term rehab following strokes. Her right side was affected along with speaking difficulty . S/O explains patient requires minimal assistance with dressing and bathing due to difficulty with sequencing tasks. Therapist observes pt is slightly weaker in RUE. Pt is normally right hand dominant. Pt's right hand headliner installer strength is also slightly declined as well. Pt explains difficulty with writing. She is unable to write her name with legible writing. Therapist plans to address all of these areas in order to assist in improvement with overall functioning. Current 9 hole peg test: Right hand: 33 seconds Left hand: 29 seconds 9 hole peg test STG Right hand: 30 seconds 9 hole peg test LTG Right hand: 28 seconds STG R hand headliner installer strength: 60 lbs LTG R hand headliner installer strength: 65 lbs Writing Goals: Pt will imitate vertical and horizontal strokes in 3/5 trials with min assist and 75% verbal cues for increased graphomotor skills while maintaining a tripod grasp. Pt will copy simple shapes ( [place], square, triangle, etc) in 3/5 trials with min assist and 75% verbal cues for increased graphomotor while maintaining a tripod grasp. Pt will write first and last name with upper and lower case letters with a model 3/5 times in tx sessions with min assist and 75% verbal cues for increased graphomotor skills. New diagnosis of cancer in past 12 No months? Chief Complaint Weakness,Decreased Lead Simulation Modeling Engineer Strength Symptoms Aggravated By Physical Activity,Lifting Prior Functional Limitations None Current Functional Limitations Reaching,Lifting,Housework, Dressing,Driving Shoulder/Elbow Eval Shoulder Objective Measurements Shoulder MMT Right Shoulder Abduction Strength Grade 3 Fair Shoulder Extension Strength Grade 3 Fair Shoulder Flexion Strength Grade 3 Fair Shoulder External Rotation Strength 3 Fair Grade Shoulder Internal Rotation Strength 3 Fair Grade Shoulder Strength Patient Testing Sitting Position Elbow Objective Measurements Elbow MMT Bilateral Elbow Flexion Strength Grade 3 Fair Elbow Extension Strength Grade 3 Fair Supination Strength Grade 3 Fair Pronation Strength Grade 3 Fair Wrist/Hand Eval Wrist Manual Muscle Testing Right Wrist Extension Strength Grade 3 Fair Wrist Flexion Strength Grade 3 Fair Wrist Radial Deviation Strength Grade 3 Fair Wrist Ulnar Deviation Strength Grade 3 Fair Forearm Supination Strength Grade 3 Fair Forearm Pronation Strength Grade 3 Fair Lead Simulation Modeling Engineer/Pinch Strength Left Lead Simulation Modeling Engineer Strength Measurement (lbs) 52 Right Lead Simulation Modeling Engineer Strength Measurement (lbs) 58 OT Outpatient Assessment Impairments Problems/Impairments Palpation Tenderness,Impaired Range of Motion,Impaired Strength,Impaired Endurance, Impaired Lifting,Impaired Dressing,Impaired Shower/ Bathing,Impaired Household Care,Impaired Recreational Activities,Impaired Work Activities,Subjective C/O Pain Prognosis Rehab Potential Good Clinical Impression Consistent with Diagnosis Yes Short Term Goals Number of Weeks 4 Increase Strength Yes: 3+,4-/5 throughout RUE Increase Endurance Yes: Pt will engage in RUE exercises for ~20 minutes prior to rest. Patient to be Ind w/ HEP Yes: [place] exercises; AAROM exercises Retirement Goals Number of Weeks 6 Increase Strength Yes: 4-/5 throughout R UE exercises Increase Endurance Yes: Pt will tolerate R UE exercises for ~30 minutes prior to rest. Patient to be Ind w/ HEP Yes Patient to be Ind w/ Advanced HEP Yes: Advanced strengthening exercises Outpatient Therapy Plan of Care Treatment Plan May Include Therapeutic Exercise Including Home Yes Exercise Program Manual Therapy Techniques Yes Neuromuscular Re-education Yes Therapeutic Activities to Return to Yes Previous Functional/Work Level ADL/Self Care Education Yes Thermal Modalities Yes Electrical Stimulation Yes Ultrasound/Phonophoresis Yes Orthotics/Bracing/Splinting Yes Massage Yes Eval/Re-Eval Yes Frequency Times per week 2 Duration Number of Weeks 6 Addendums This patient is a candidate for social No or vocational rehab? Patient/Guardian verbally acknowledges Yes understanding of treatment program and consents to further treatment? Patient/Guardian verbally acknowledges Yes understanding of diagnosis, prognosis and goals for treatment? Eval Complexity OT Charge 18921 - Moderate Complexity PHYSICIAN CERTIFICATION: I certify the specified therapy services for Salena Dave are required, authorized, and reviewed every 30 days.
--- NOTE | 2023-10-27 11:28 | HMH.OTOPEV ---
OT Inpatient Evaluation Rehab OT Outpatient Eval Start: 10/27/23 10:33 Freq: Status: Active Protocol: Document 10/27/23 10:33 RM[facility]ALL (Rec: 10/27/23 11:14 [facility] [id number]) E-signed By Ibis Quiroz, OT Outpatient Therapy Subjective History Subjective History Pt is a 58 year old female who reports to therapy for initial evaluation following a CVA. Pt is accompanied by her significant other whom she lives with. S/O provides information about her level of functioning due to patients expressive aphasia. Pt initially had stroke in of 2020. Pt lived in [place] at this time. Pt did not have any type of short term rehab following strokes. Her right side was affected along with speaking difficulty . S/O explains patient requires minimal assistance with dressing and bathing due to difficulty with sequencing tasks. Therapist observes pt is slightly weaker in RUE. Pt is normally right hand dominant. Pt's right hand facilities custodian strength is also slightly declined as well. Pt explains difficulty with writing. She is unable to write her name with legible writing. Therapist plans to address all of these areas in order to assist in improvement with overall functioning. Current 9 hole peg test: Right hand: 33 seconds Left hand: 29 seconds 9 hole peg test STG Right hand: 30 seconds 9 hole peg test LTG Right hand: 28 seconds STG R hand facilities custodian strength: 60 lbs LTG R hand facilities custodian strength: 65 lbs Writing Goals: Pt will imitate vertical and horizontal strokes in 3/5 trials with min assist and 75% verbal cues for increased graphomotor skills while maintaining a tripod grasp. Pt will copy simple shapes ( [place], square, triangle, etc) in 3/5 trials with min assist and 75% verbal cues for increased graphomotor while maintaining a tripod grasp. Pt will write first and last name with upper and lower case letters with a model 3/5 times in tx sessions with min assist and 75% verbal cues for increased graphomotor skills. New diagnosis of cancer in past 12 No months? Chief Complaint Weakness,Decreased Fire Extinguisher Installer Strength Symptoms Aggravated By Physical Activity,Lifting Prior Functional Limitations None Current Functional Limitations Reaching,Lifting,Housework, Dressing,Driving Shoulder/Elbow Eval Shoulder Objective Measurements Shoulder MMT Right Shoulder Abduction Strength Grade 3 Fair Shoulder Extension Strength Grade 3 Fair Shoulder Flexion Strength Grade 3 Fair Shoulder External Rotation Strength 3 Fair Grade Shoulder Internal Rotation Strength 3 Fair Grade Shoulder Strength Patient Testing Sitting Position Elbow Objective Measurements Elbow MMT Bilateral Elbow Flexion Strength Grade 3 Fair Elbow Extension Strength Grade 3 Fair Supination Strength Grade 3 Fair Pronation Strength Grade 3 Fair Wrist/Hand Eval Wrist Manual Muscle Testing Right Wrist Extension Strength Grade 3 Fair Wrist Flexion Strength Grade 3 Fair Wrist Radial Deviation Strength Grade 3 Fair Wrist Ulnar Deviation Strength Grade 3 Fair Forearm Supination Strength Grade 3 Fair Forearm Pronation Strength Grade 3 Fair Fire Extinguisher Installer/Pinch Strength Left Fire Extinguisher Installer Strength Measurement (lbs) 52 Right Fire Extinguisher Installer Strength Measurement (lbs) 58 OT Outpatient Assessment Impairments Problems/Impairments Palpation Tenderness,Impaired Range of Motion,Impaired Strength,Impaired Endurance, Impaired Lifting,Impaired Dressing,Impaired Shower/ Bathing,Impaired Household Care,Impaired Recreational Activities,Impaired Work Activities,Subjective C/O Pain Prognosis Rehab Potential Good Clinical Impression Consistent with Diagnosis Yes Short Term Goals Number of Weeks 4 Increase Strength Yes: 3+,4-/5 throughout RUE Increase Endurance Yes: Pt will engage in RUE exercises for ~20 minutes prior to rest. Patient to be Ind w/ HEP Yes: [place] exercises; AAROM exercises Skilled Nursing Goals Number of Weeks 6 Increase Strength Yes: 4-/5 throughout R UE exercises Increase Endurance Yes: Pt will tolerate R UE exercises for ~30 minutes prior to rest. Patient to be Ind w/ HEP Yes Patient to be Ind w/ Advanced HEP Yes: Advanced strengthening exercises Outpatient Therapy Plan of Care Treatment Plan May Include Therapeutic Exercise Including Home Yes Exercise Program Manual Therapy Techniques Yes Neuromuscular Re-education Yes Therapeutic Activities to Return to Yes Previous Functional/Work Level ADL/Self Care Education Yes Thermal Modalities Yes Electrical Stimulation Yes Ultrasound/Phonophoresis Yes Orthotics/Bracing/Splinting Yes Massage Yes Eval/Re-Eval Yes Frequency Times per week 2 Duration Number of Weeks 6 Addendums This patient is a candidate for social No or vocational rehab? Patient/Guardian verbally acknowledges Yes understanding of treatment program and consents to further treatment? Patient/Guardian verbally acknowledges Yes understanding of diagnosis, prognosis and goals for treatment? Eval Complexity OT Charge 93975 - Moderate Complexity PHYSICIAN CERTIFICATION: I certify the specified therapy services for Salena Dave are required, authorized, and reviewed every 30 days.
--- NOTE | 2023-11-25 15:09 | HMH.RHREAS ---
Rehab Reassessment Rehab OP Re-assessment Start: 10/27/23 10:33 Freq: Status: Active Protocol: Document 11/25/23 14:02 RMARSHALL (Rec: 11/25/23 15:09 RMARSHALL [id number]) E-signed By Ibis Quiroz OT Rehab Re-assessment Subjective Subjective I get tired easily. Objective Objective Notes Pt continues to be seen twice a week in order to address RUE AROM, strength, and fine motor deficits. Each session, pt engages in AROM and strengthening exercises for R UE. Pt is passively ranged at right shoulder, elbow and wrist each session. Pt also engages in fine motor activities, electrical engineering drafting officer strengthening , and writing activities to improve overall manual dexterity, coordination, and precision with right hand. Assessment Progress Assessment Progressing as Expected Assessment Notes Pt is very consistent about attending therapy session. Pt demonstrates improvement with overall electrical engineering drafting officer strength and fine motor at right hand. Pt' s AROM at right shoulder remains limited and new goals have been made to continue addressing this decline. Her strength in RUE has improved but continues to remain limited. Current R shoulder AROM Flex: 125 degrees Abd: 115 degrees ER: 65 degrees IR: 70 degrees Current 9 hole peg test: 27 seconds Current R hand electrical engineering drafting officer strength: 55 lbs Patient goals met 9 hole peg test STG Right hand: 30 seconds 9 hole peg test LTG Right hand: 28 seconds STG R hand electrical engineering drafting officer strength: 60 lbs ST-3 Goals Not Met See below Revised Goals LT-3 LTG R hand electrical engineering drafting officer strength: 65 lbs Writing Goals: Pt will imitate vertical and horizontal strokes in 3/5 trials with min assist and 75% verbal cues for increased graphomotor skills while maintaining a tripod grasp. Pt will copy simple shapes ( little river, square, triangle, etc) in 3/5 trials with min assist and 75% verbal cues for increased graphomotor while maintaining a tripod grasp. Pt will write first and last name with upper and lower case letters with a model 3/5 times in tx sessions with min assist and 75% verbal cues for increased graphomotor skills. Current R shoulder AROM Flex: 140 degrees Abd: 130 degrees ER: 75 degrees IR: 70 degrees [ End ] Plan Plan Continue with OT plan of care at this time. Frequency of Therapy 2x's a week Duration of therapy 4 more weeks Time and Billing Re-Eval Time 16 Re-Eval Billing Units 1 PHYSICIAN CERTIFICATION: I certify the specified therapy services for Salena Dave are required, authorized, and reviewed every 30 days.
--- NOTE | 2023-12-24 09:49 | HMH.RHREAS ---
Rehab Reassessment Rehab OP Re-assessment Start: 10/27/23 10:33 Freq: Status: Active Protocol: Document 12/24/23 08:52 RMARSHALL (Rec: 12/24/23 09:49 RMARSHALL [id number]) E-signed By Ibis Quiroz OT Rehab Re-assessment Subjective Subjective Still hard to do somethings. Objective Objective Notes Pt continues to be seen twice a week in order to address RUE AROM, strength, and fine motor deficits. Each session, pt engages in AROM and strengthening exercises for R UE. Pt is passively ranged at right shoulder, elbow and wrist each session. Pt also engages in fine motor activities, staff nurse strengthening , and writing activities to improve overall manual dexterity, coordination, and precision with right hand. Assessment Progress Assessment Progressing as Expected Assessment Notes Pt is very consistent about attending therapy session. Pt demonstrates improvement with overall staff nurse strength and fine motor at right hand. Pt' s AROM at right shoulder demonstrates improvement since last re-assessment when goals were added. Her strength in RUE has improved but continues to remain limited. Pt's writing remains limited. SHe is able to trace letters very well, but has difficulty writing them independently with correct letter formation. Current R shoulder AROM Flex: 128 degrees Abd: 125 degrees ER: 80 degrees IR: 70 degrees Current 9 hole peg test: 25 seconds Current R hand staff nurse strength: 60 lbs Patient goals met 9 hole peg test STG Right hand: 30 seconds 9 hole peg test LTG Right hand: 28 seconds STG R hand staff nurse strength: [address]-3 LT and 3 Goals Not Met See below Revised Goals LT LTG R hand staff nurse strength: 65 lbs Writing Goals: Pt will imitate vertical and horizontal strokes in 3/5 trials with min assist and 75% verbal cues for increased graphomotor skills while maintaining a tripod grasp. Pt will copy simple shapes ( [place], square, triangle, etc) in 3/5 trials with min assist and 75% verbal cues for increased graphomotor while maintaining a tripod grasp. Pt will write first and last name with upper and lower case letters with a model 3/5 times in tx sessions with min assist and 75% verbal cues for increased graphomotor skills. Current R shoulder AROM Flex: 140 degrees Abd: 130 degrees ER: 75 degrees IR: 70 degrees [ End ] Plan Plan Continue with OT plan of care at this time. Frequency of Therapy 2x's a week Duration of therapy 4 more weeks Time and Billing Re-Eval Time 13 Re-Eval Billing Units 1 PHYSICIAN CERTIFICATION: I certify the specified therapy services for Salena Dave are required, authorized, and reviewed every 30 days.
--- NOTE | 2024-01-20 10:42 | HMH.RHREAS ---
Rehab Reassessment Rehab OP Re-assessment Start: 10/27/23 10:33 Freq: Status: Active Protocol: Document 01/20/24 10:07 [email or web address] (Rec: 01/20/24 10:42 RMARSHALL [id number]) E-signed By Ibis Quiroz OT Rehab Re-assessment Subjective Subjective It's been a bad few weeks. Objective Objective Notes Pt continues to be seen twice a week in order to address RUE AROM, strength, and fine motor deficits. Each session, pt engages in AROM and strengthening exercises for R UE. Pt is passively ranged at right shoulder, elbow and wrist each session. Pt also engages in fine motor activities, residential program manager strengthening , and writing activities to improve overall manual dexterity, coordination, and precision with right hand. Assessment Progress Assessment Slower Than Expected Assessment Notes Pt has not been to therapy sessions for 18 days. She has only been treated one time since last re-assessment. Therefore minimal improvement has been made. Pt's writing has improved. She is able to write her first name more legibaly if she takes her times and verbal cueing is provided. Pt's AROM at right shoulder has improved slightly and pt continues to tolerate exercises very well. Pt's residential program manager strength has declined slightly since last re- assessment. Current R shoulder AROM Flex: 132 degrees Abd: 134 degrees ER: 82 degrees IR: 70 degrees Current R hand residential program manager strength: 50 lbs Patient goals met 9 hole peg test STG Right hand: 30 seconds 9 hole peg test LTG Right hand: 28 seconds STG R hand residential program manager strength: [address]-3 LT and 3 Goals Not Met See below Revised Goals LT LTG R hand residential program manager strength: 65 lbs Writing Goals: Pt will imitate vertical and horizontal strokes in 3/5 trials with min assist and 75% verbal cues for increased graphomotor skills while maintaining a tripod grasp. Pt will copy simple shapes ( [place], square, triangle, etc) in 3/5 trials with min assist and 75% verbal cues for increased graphomotor while maintaining a tripod grasp. Pt will write first and last name with upper and lower case letters with a model 3/5 times in tx sessions with min assist and 75% verbal cues for increased graphomotor skills. Current R shoulder AROM Flex: 140 degrees Abd: 140 degrees ER: 75 degrees IR: 70 degrees [ End ] Plan Plan Continue with OT plan of care at this time. Frequency of Therapy 2x's a week Duration of therapy 4 more weeks Time and Billing Re-Eval Time 11 Re-Eval Billing Units 1 PHYSICIAN CERTIFICATION: I certify the specified therapy services for Salena Dave are required, authorized, and reviewed every 30 days.
--- NOTE | 2024-03-03 10:56 | HMH.RHREAS ---
Rehab Reassessment Rehab OP Re-assessment Start: 10/27/23 10:33 Freq: Status: Active Protocol: Document 03/03/24 09:49 RMARSHALL (Rec: 03/03/24 10:56 RMARSHALL [id number]) E-signed By Ibis Quiroz OT Rehab Re-assessment Subjective Subjective I just still feel weak. Objective Objective Notes Pt continues to be seen twice a week in order to address RUE AROM, strength, and fine motor deficits. Each session, pt engages in AROM and strengthening exercises for R UE. Pt is passively ranged at right shoulder, elbow and wrist each session. Pt also engages in fine motor activities, rubberizing mechanic strengthening , and writing activities to improve overall manual dexterity, coordination, and precision with right hand. Assessment Progress Assessment Slower Than Expected Assessment Notes Pt has not been to therapy sessions for 22 days She has only been treated two times since last re-assessment. Therefore minimal improvement has been made. Pt had another hospital stay within the past 22 days due to another episode of stroke like symtpoms. Pt experienced weakness in RUE and difficulty with balance. However, pt claims her symtpoms have resolved since this episode. Current R shoulder AROM Flex: 140 degrees Abd: 134 degrees ER: 85 degrees IR: 70 degrees Current R hand rubberizing mechanic strength: 50 lbs Patient goals met 9 hole peg test STG Right hand: 30 seconds 9 hole peg test LTG Right hand: 28 seconds STG R hand rubberizing mechanic strength: [address]-3 LT and 3 Goals Not Met See below Revised Goals LT LTG R hand rubberizing mechanic strength: 65 lbs Writing Goals: Pt will imitate vertical and horizontal strokes in 3/5 trials with min assist and 75% verbal cues for increased graphomotor skills while maintaining a tripod grasp. Pt will copy simple shapes ( [place], square, triangle, etc) in 3/5 trials with min assist and 75% verbal cues for increased graphomotor while maintaining a tripod grasp. Pt will write first and last name with upper and lower case letters with a model 3/5 times in tx sessions with min assist and 75% verbal cues for increased graphomotor skills. Current R shoulder AROM Flex: 140 degrees Abd: 140 degrees ER: 75 degrees IR: 70 degrees [ End ] Plan Plan Continue with OT plan of care at this time. Frequency of Therapy 2x's a week Duration of therapy 4 more weeks Time and Billing Re-Eval Time 12 Re-Eval Billing Units 1 PHYSICIAN CERTIFICATION: I certify the specified therapy services for Salena Dave are required, authorized, and reviewed every 30 days.
== END ==
LOC: OT 10-27 09:51
PROVIDERS: PCP Physician Assistant; Visit Provider Physician Assistant
DX: R47.01 Aphasia (principal); Z86.73 Personal history of transient ischemic attack (TIA), and cerebral infarction without residual deficits
CPT/HCPCS: 97010; 97110; 97140; 97164; 97166; 97530

== ENCOUNTER 2024-03-03 23:23 | Emergency (ER) | payer MEDICARE, OTHER, SELFPAY ==
[2024-03-03 23:25] VITALS: BP 155/86; PULSE 95; RESP 16; TEMP 36.8; O2SAT 98; BMI 30.1
--- NOTE | 2024-03-03 23:48 | XR_ITS ---
PROCEDURE INFORMATION: Exam: XR Chest Exam date and time: 03/03/2024 11:49 PM Age: 58 years old Clinical indication: Pain; Chest pressure; Additional info: Cp, general weakness TECHNIQUE: Imaging protocol: Radiologic exam of the chest. Views: 1 view. COMPARISON: CR XR CHEST PORTABLE 02/16/2024 4:36 PM FINDINGS: Lungs: Unremarkable. No consolidation. Pleural spaces: Unremarkable. No pleural effusion. No pneumothorax. Heart/Mediastinum: Unremarkable. No cardiomegaly. Bones/joints: Unremarkable. IMPRESSION: No acute findings.
[2024-03-03 23:56] LABS: Basophils % 0.6 % (0.1-2.0); Eosinophils # 0.1 K/mm3 (0.0-0.4); Eosinophils % 1.8 % (0.1-12.0); Hematocrit 43.9 % (37.0-47.0); Hemoglobin 14.2 g/dL (12.2-16.2); Lymphocytes # 0.9 K/mm3 (0.7-4.5); Lymphocytes % 12.7 % (10-50); Mean Corpuscular HGB Conc 32.4 g/dL (31.8-35.4); Mean Corpuscular Hemoglobin 28.8 pg (27.0-31.2); Mean Corpuscular Volume 88.9 fl (81-99); Monocytes # 0.3 K/mm3 (0.1-1.0); Monocytes % 3.9 % (1.7-9.3); Neutrophils # 5.8 K/mm3 (1.8-7.8); Neutrophils % 81.1 % (37.0-80.0); Platelet Count 187 K/mm3 (142-424); Red Blood Count 4.94 M/mm3 (4.20-5.40); Red Cell Distribution Width 14.9 % (11.5-17.5); White Blood Count 7.1 K/mm3 (4.8-10.8)
--- NOTE | 2024-03-03 23:56 | ED_ITS ---
Discharge Plan Disposition Patient Disposition: Home, Self-Care Prescriptions Prescriptions: No Action pregabalin [Lyrica] 75 mg capsule 75 mg PO BID Qty: 60 2RF Eliquis 5 mg tablet 5 mg PO BID Qty: 180 0RF carvedilol 12.5 mg tablet 12.5 mg PO BID Qty: 180 0RF Rx Instructions: must administer with a meal/food ergocalciferol (vitamin D2) 1,250 mcg (50,000 unit) capsule 1,250 mcg PO WEEKLY Qty: 14 3RF glimepiride 4 mg tablet 4 mg PO DAILY Qty: 90 3RF insulin asp prt-insulin aspart [Novolog Mix 70-30FlexPen U-100] 100 unit/mL (70-30) insulin pen 22 unit SQ BID Qty: 15 2RF Rx Instructions: Use with 2 largest meals of the day insulin glargine [Lantus Solostar U-100 Insulin] 100 unit/mL (3 mL) insulin pen 40 unit SQ HS Qty: 15 2RF levetiracetam 500 mg tablet 500 mg PO BID Qty: 180 0RF levothyroxine [Synthroid] 50 mcg tablet 50 mcg PO DAILY Qty: 90 3RF losartan 100 mg tablet 100 mg PO DAILY Qty: 90 3RF omeprazole 40 mg capsule,delayed release(DR/EC) 40 mg PO DAILY Qty: 30 2RF rosuvastatin 20 mg tablet 20 mg PO QHS Qty: 90 0RF Ozempic 1 mg/dose (4 mg/3 mL) pen injector 1 mg SQ WEEKLY Qty: 3 2RF escitalopram oxalate [Lexapro] 10 mg tablet 10 mg PO DAILY Qty: 30 2RF Auvelity 45-105 mg tablet, IR and ER, biphasic 1 tab PO BID Qty: 60 2RF Rx Instructions: Daily X 3 days, then BID Referrals Follow up/Referrals: Margoth Brand PA [Primary Care Provider] - See instructions Activity Restrictions/Add. Instructions Additional Instructions/Restrictions: Call your family doctor to establish care for this visit to the emergency department and schedule follow-up within 48 hours to ensure improvement. If you have any worsening of your condition or any other concerning signs or symptoms, return to the emergency department or your primary care doctor for further evaluation. Clinical Impressions Clinical Impression: Generalized weakness Discharge ED Provider: Lisa,Ross A General Adult HPI General Chief complaint: Weakness Stated complaint: lethargic, stroke history, skaking, labored breath Time Seen by Provider: 03/03/24 23:28 Mode of Arrival: Wheelchair Source of Information: Spouse Limitations: No Limitations Description of Symptoms (Recalled from ER Triage Doc. by RN): patient to ED in wheelchair with complaints of generalized weakness, inability to walk without assitance, shuffling gait, shaking in BUE. Spouse reports that patient was dx with TIA x 2 weeks ago, and has not improved since. History of Present Illness HPI narrative: 58-year-old female history of vasculopathy, CVA, currently on Eliquis, hypertension, hyperlipidemia, diabetes, hypothyroidism presenting with multiple complaints. Patient states that she has not been feeling well since a couple weeks prior to this visit since TIA. Has been in for the past 24 hours feeling weak. Family at bedside corroborating story. Patient has been following with physical therapy, today, was weak enough that she was unable to finish physical therapy here at [facility], was sent home. Went to bed, took a nap. Family states that patient broke out in a sweat and was shivering while trying to nap, but patient remembers the situation and no amnesia. No unilateral deficits, new speech deficits. Patient states that on the way here to the hospital, she started having substernal chest pain that did not radiate, not associate with shortness of breath, diaphoresis, nausea or vomiting. Unsure if this is related. Not currently present. Please note that above description of symptoms, in this electronic medical record under categorization of recalled from ER triage doctor by RN are reflective of an initial nursing assessment, however, is not reflective of my full history and physical exam that was personally taken and clarified. Consequentially, this preceding description of symptoms, which may include the patient's categorized chief complaint in the EMR, do not reflect my personal clinical impression, and the ultimate description of history of present illness and patient stated complaints should be deferred to this section of the note. Unless stated otherwise or congruent with this section of the note, additional signs, symptoms, or incongruence should be interpreted as inaccurate with my clinical impression. Related Data Previous Rx's Medication Instructions Recorded pregabalin 75 mg capsule (Lyrica) 75 mg PO BID #60 caps 02/04/24 apixaban 5 mg tablet (Eliquis) 5 mg PO BID #180 tabs 03/02/24 carvedilol 12.5 mg tablet 12.5 mg PO BID #180 tabs 03/02/24 dextromethorphan IR 45 1 tab PO BID #60 ea 03/02/24 mg-bupropion ER 105 mg biphasic tablet (Auvelity) ergocalciferol (vitamin D2) 1,250 1,250 mcg PO WEEKLY #14 caps 03/02/24 mcg (50,000 unit) capsule escitalopram oxalate 10 mg tablet 10 mg PO DAILY #30 tabs 03/02/24 (Lexapro) glimepiride 4 mg tablet 4 mg PO DAILY #90 tabs 03/02/24 insulin aspar prot-insulin aspart 22 unit (0.22 mL) SQ BID #15 mL 03/02/24 100 unit/mL (70-30) subcutaneous pen (Novolog Mix 70-30FlexPen U-100) insulin glargine 100 unit/mL (3 40 unit (0.4 mL) SQ HS #15 mL 03/02/24 mL) subcutaneous pen (Lantus Solostar U-100 Insulin) levetiracetam 500 mg tablet 500 mg PO BID #180 tabs 03/02/24 levothyroxine 50 mcg tablet 50 mcg PO DAILY #90 tabs 03/02/24 (Synthroid) losartan 100 mg tablet 100 mg PO DAILY #90 tabs 03/02/24 omeprazole 40 mg capsule,delayed 40 mg PO DAILY #30 caps 03/02/24 release rosuvastatin 20 mg tablet 20 mg PO QHS #90 tabs 03/02/24 semaglutide 1 mg/dose (4 mg/3 mL) 1 mg (0.75 mL) SQ WEEKLY #3 mL 03/02/24 subcutaneous pen injector (Ozempic) Allergies Allergy/AdvReac Type Severity Reaction Status Date / Time No Known Allergies Allergy Verified 03/02/24 10:58 [facility] Disclaimer: The information contained in this section may have been updated after the patient was seen, as this information can be updated by other users. Medical History Urinary leakage Persistent complex bereavement disorder Salena reported that she lost her mother to Alzheimer's Disease when Salena was younger, she lost her father 3 yrs ago, she lost her about 5 or 6 yrs ago, and there has been some estrangement between herself and her older children. Adjustment disorder with depressed mood Salena reported dealing with Depression and Anger after her stroke because she struggles with doing things the same way as before. She claims that she gets very frustrated due to all of the changes and limitations in her life since the stroke. History of stroke Heart failure Kidney disease 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, type 2 Hypertension Surgical History Hx of total thyroidectomy Hx of hysterectomy History of colonoscopy Family History Father Heart disease Mother Stroke Social History Smoking Status: Never smoker alcohol intake: never substance use type: denies use current occupational status: unemployed and disabled Travel in the last 8 weeks: None number of children: 4 ROS Obtained: Yes All systems reviewed & no additional complaints except as documented Physical Exam General General appearance: alert and in no apparent distress Head Head exam: atraumatic and normocephalic Eye Eye exam: Present normal appearance, PERRL and EOMI ENT ENT exam: Present mucous membranes moist Neck Neck exam: Present normal inspection, full ROM and trachea midline Respiratory Respiratory exam: Present normal lung sounds bilaterally; Absent respiratory distress, wheezes, stridor, accessory muscle use or prolonged expiratory phase Cardiovascular Cardiovascular exam: Present regular rate, normal rhythm and systolic murmur (RUSB) Abdominal Exam Abdominal exam: Present soft; Absent distention, tenderness, guarding, rebound or rigidity Extremities Exam Extremities exam: Absent edema Neurological Exam Neurological exam: Present alert, oriented X3 and CN II-XII intact; Absent motor sensory deficit Skin Skin exam: Present warm and dry; Absent diaphoresis or erythema Medical Decision Making Medical Records Medical records reviewed: Yes I reviewed the patient's medical records. Chandan Inquiry Pt receiving controlled substance: No Chandan was queried for this patient: No Vital Signs: 03/03/24 23:25 03/04/24 00:30 03/04/24 01:00 Temperature 98.3 F Temperature Source Oral Pulse Rate 89 89 Pulse Rate [Right] 95 H Respiratory Rate 16 Blood Pressure 152/85 H 149/91 H Blood Pressure [Right Arm] 155/86 H Blood Pressure Mean 107 103 Blood Pressure Mean [Right Arm] 109 Blood Pressure Source Blood Pressure Source [Right Arm] Automatic Cuff Blood Pressure Position Blood Pressure Position [Right Arm] Sitting 02 Sat by Pulse Oximetry 98 98 96 Oxygen Delivery Method Room Air 03/04/24 01:30 03/04/24 02:00 03/04/24 02:30 Temperature Temperature Source Pulse Rate 82 83 83 Pulse Rate [Right] Respiratory Rate Blood Pressure 151/81 H 145/83 H 141/83 H Blood Pressure [Right Arm] Blood Pressure Mean 104 103 102 Blood Pressure Mean [Right Arm] Blood Pressure Source Blood Pressure Source [Right Arm] Blood Pressure Position Blood Pressure Position [Right Arm] 02 Sat by Pulse Oximetry 99 96 96 Oxygen Delivery Method 03/04/24 03:06 Temperature 98.0 F Temperature Source Oral Pulse Rate 82 Pulse Rate [Right] Respiratory Rate 15 Blood Pressure 141/83 H Blood Pressure [Right Arm] Blood Pressure Mean Blood Pressure Mean [Right Arm] Blood Pressure Source Automatic Cuff Blood Pressure Source [Right Arm] Blood Pressure Position Supine Blood Pressure Position [Right Arm] 02 Sat by Pulse Oximetry Oxygen Delivery Method Room Air Lab Data Lab Results 03/03/24 23:35: WBC 7.1, RBC 4.94, Hgb 14.2, Hct 43.9, MCV 88.9, MCH 28.8, MCHC 32.4, RDW 14.9, Plt Count 187, MPV 8.0, Neut % (Auto) 81.1 H, Lymph % (Auto) 12.7, [place] % (Auto) 3.9, Eos % (Auto) 1.8, Baso % (Auto) 0.6, Neut # (Auto) 5.8, Lymph # (Auto) 0.9, [place] # (Auto) 0.3, Eos # (Auto) 0.1, Baso # (Auto) 0.0, Sodium 142, Potassium 3.9, Chloride 105, Carbon Dioxide 29, Anion Gap 11.9, BUN 15, Creatinine 1.00, Estimated Creat Clear 88, Estimated GFR 57 L, Est GFR ( Amer) 69, Glucose 138 H, Hemoglobin A1c 8.3 H, Calcium 9.5, Total Bilirubin 0.6, AST 24, ALT 23, Alkaline Phosphatase 60, Troponin I < 0.01, Total Protein 7.0, Albumin 4.3, Globulin 2.7, Albumin/Globulin Ratio 1.6, T riglycerides 236 H, Cholesterol 144, LDL Cholesterol Direct 61.46 L, VLDL Cholesterol 47 H, HDL Cholesterol 32 L, Cholesterol/HDL Ratio 4.5 H 03/03/24 23:54: SARS-CoV-2 (PCR) Not detected, Influenza A Untype (PCR) Not detected, Influenza Type B (PCR) Not detected 03/04/24 01:02: Urine Color Yellow, Urine Appearance Clear, Urine pH 6.0, Ur Specific [place] 1.025, Urine Protein Negative, Urine Glucose (UA) Negative, Urine Ketones Negative, Urine Blood Negative, Urine Nitrate Negative, Urine Bilirubin Negative, Urine Urobilinogen 0.2, Ur Leukocyte Esterase Negative, Urine WBC Occasional, Ur Squamous Epith Cells 3-5, Urine Bacteria Trace 03/04/24 02:10: Troponin I < 0.01 03/03/24 23:35 03/03/24 23:35 Orders (Tests/Meds): ED MEDICATIONS Discontinued Medications Generic Name Dose Route Start Last Admin Trade Name Liana PRN Reason Stop Dose Admin Aspirin 324 mg 03/04/24 00:03 03/04/24 00:11 Aspirin 81mg Chewable Tablet PO 03/04/24 00:04 324 mg ONCE ONE Administration Lactated Ringer's 1,000 mls @ 999 mls/hr 03/04/24 00:03 03/04/24 00:11 Lactated Ringer's 1000 Ml Bag IV 03/04/24 01:03 999 mls/hr .Q1H1M ONE Administration ORDERS Category Date Time Status CXR --portable [XR chest portable] Stat Exams 03/03/24 23:48 Completed CBC w/Auto Diff [Complete Blood Count Auto Diff] Stat Lab 03/03/24 23:35 Completed CMP [Comprehensive Metabolic Panel] Stat Lab 03/03/24 23:35 Completed Hemoglobin A1C Stat Lab 03/03/24 23:35 Completed Lipid Panel Stat Lab 03/03/24 23:35 Completed Rapid PCR Covid and Flu A/B Stat Lab 03/03/24 23:54 Completed Trop I [Troponin I] Stat Lab 03/03/24 23:35 Completed Troponin I Q3H Lab 03/04/24 02:10 Completed Troponin I Q3H Lab 03/04/24 06:00 Ordered UA [Urinalysis and Microscopic] Stat Lab 03/04/24 01:02 Completed HEART Score History (anamnesis): Slightly suspicious ECG: Non-specific disturbance Age: 45-65 years Risk factors: 3 or more risk factors Troponin: </= normal limit HEART Score: 4 Medical Decision Narrative: 58-year-old female history of vasculopathy, CVA, currently on Eliquis, hypertension, hyperlipidemia, diabetes, hypothyroidism presenting with multiple complaints. Patient states that she has not been feeling well since a couple weeks prior to this visit since TIA. Has been in for the past 24 hours feeling weak. Family at bedside corroborating story. Patient has been following with physical therapy, today, was weak enough that she was unable to finish physical therapy here at [facility], was sent home. Went to bed, took a nap. Family states that patient broke out in a sweat and was shivering while trying to nap, but patient remembers the situation and no amnesia. No unilateral deficits, new speech deficits. Patient states that on the way here to the hospital, she started having substernal chest pain that did not radiate, not associate with shortness of breath, diaphoresis, nausea or vomiting. Unsure if this is related. Not currently present. It should be noted that patient does have severe vasculopathy and numerous intracranial vascular stenoses complicated by chronic medical conditions which is likely complicating care. History was obtained via conversation with patient and family at bedside. On arrival, patient hemodynamically stable, alert, oriented x4, appropriate, GCS 15, moving all extremities spontaneously, pupils equal and reactive to light. Full physical exam performed and significant for cranial nerves, cerebellar, motor and sensory exam stable. Patient states she has no sensation, this is nothing new for her. No new deficits on neuroexam. Cardiac exam with right upper sternal border murmur 2 out of 6. Otherwise cardiac exam within normal limits. Abdomen soft, nontender. Lungs are clear to auscultation bilaterally anterior and posteriorly.. Differential includes pneumonia, bronchitis, URI, microvascular coronary artery disease, CHF, ACS, VA, coronary artery dissection, pneumothorax, PE, dissection, pericarditis, myocarditis, pneumothorax, aortic aneurysm, pneumonia, bronchitis, among others. Patient was given aspirin, fluids for symptomatic management and correction of underlying abnormalities. Workup independently interpreted and significant for nonactionable CBC or chemistry,, initial troponin negative. Chest x-ray without acute cardiopulmonary airspace disease. See radiology read for full review of final results. Independent interpretation of EKG shows sinus rhythm 89 beats a minute with T wave inversions in 1 and aVL, no reciprocal change. Poor R wave progression in precordial leads, but no ST changes. NV, QRS, QT intervals within normal limits, borderline left axis deviation. Heart score 4. Patient placed in patient was placed in observation beginning at around midnight on 03/04. This was to rule out evolving VA with delta troponins and determine need for admission versus home-going. The patient was provided serial exams, monitoring, delta troponins while awaiting results. Independent interpretation of results demonstrated delta troponin. On reevaluation, patient resting comfortably in bed. At this time, I feel patient is appropriate for discharge. Total observation time 2 and half hours. Recommended follow-up with PCP, given patient feeling better on reevaluation. Because patient at baseline without signs or symptoms of clinical decompensation, deemed appropriate for discharge. Results were relayed to patient who voiced understanding and were agreeable to outpatient management and follow up. I discussed my clinical impression with patient and answered all questions. At this time, the evidence for any other entities in the differential is insufficient to warrant any further testing or ED observation. This was explained as well. Advisory was given that persistent or worsening symptoms require further evaluation. I confirmed the understanding of this discussion. Critical Care Critical Care Time Critical Care Time: No
[2024-03-03 23:57] LABS: Coronavirus 19, PCR Not Detected (NotDetected); Influenza A, PCR Not Detected (NotDetected); Influenza B, PCR Not Detected (NotDetected)
[2024-03-04 00:02] LABS: Alanine Aminotransferase 23 U/L (12-78); Albumin Level 4.3 g/dl (3.5-5.0); Albumin/Globulin Ratio 1.6 (1.1-1.8); Alkaline Phosphatase 60 U/L (38-126); Anion Gap 11.9 mEq/L (5-15); Aspartate Amino Transferase 24 U/L (14-36); Bilirubin,Total 0.6 mg/dl (0.2-1.3); Blood Urea Nitrogen 15 mg/dl (7-17); Calcium 9.5 mg/dl (8.4-10.2); Carbon Dioxide 29 mmol/L (22.0-30.0); Chloride 105 mmol/L (98-107); Chol/HDL Ratio 4.5 (1-3.5); Cholesterol 144 mg/dl (140-200); Creatinine Clearance Estimated 88 mL/min (50-200); Estimated Glomerular Filt Rate 57 ml/min (>60); GFR (African American) 69 ML/MIN (>60); Globulin 2.7 g/dL (1.3-3.2); Glucose 138 mg/dl (74-100); HDL Cholesterol 32 mg/dl (40-60); Potassium 3.9 mmoL/L (3.5-5.1); Sodium 142 mmol/L (136-145); Triglycerides 236 mg/dl (30-150); VLDL Cholesterol 47 mg/dL (0-40)
[2024-03-04] MEDS: ASPIRIN 81MG CHEWABLE TABLET 324 MG PO (00:11)
[2024-03-04] MEDS: LACTATED RINGERS 1000ML 1,000 ML 999 ML IV (00:11)
[2024-03-04 00:12] LABS: Direct LDL Cholesterol 61.46 mg/dL (100-129)
[2024-03-04 00:17] LABS: Troponin I < 0.01 ng/ml (0.00-0.034)
[2024-03-04 00:30] VITALS: BP 152/85; PULSE 89; O2SAT 98
--- NOTE | 2024-03-04 00:50 | ECG_ITS ---
APPROVED REPORT Exam: Resting ECG HR:89 bpm ECG Measurements Heart Rate 89 AXES MA 181 P 11 QRSd 93 QRS -29 QT 341 T 81 QTc 387 Conclusion SINUS RHYTHM T wave inversions 1 and aVL, no reciprocal change Electronically signed by : SYD SOLOMON, 03/04/2024 03:41:34
[2024-03-04 00:54] LABS: Hemoglobin A1C 8.3 % (4.0-6.0)
[2024-03-04 01:00] VITALS: BP 149/91; PULSE 89; O2SAT 96
[2024-03-04 01:09] LABS: Microscopic, Urine URINE MICROSCOPIC (MICROSCOPIC)
[2024-03-04 01:10] LABS: Appearance,Urine CLEAR (Clear); Bilirubin,Urine Negative (Negative); Blood, Urine Negative (Negative); Color,Urine YELLOW (Yellow); Glucose,Urine (UA) Negative (Negative); Ketones,Urine Negative (Negative); Leukocyte Esterase,Urine Negative (Negative); Nitrate,Urine Negative (Negative); Protein,Urine Negative (Negative); Specific Gravity, Urine 1.025 (1.005-1.030); Urobilinogen,Urine 0.2 EU/dl (0.2)
[2024-03-04 01:23] LABS: Bacteria,Urine Trace /lpf; WBC,Urine Occasional #/hpf (0-3)
[2024-03-04 01:30] VITALS: BP 151/81; PULSE 82; O2SAT 99
[2024-03-04 02:00] VITALS: BP 145/83; PULSE 83; O2SAT 96
[2024-03-04 02:30] VITALS: BP 141/83; PULSE 83; O2SAT 96
[2024-03-04 02:38] LABS: Troponin I < 0.01 ng/ml (0.00-0.034)
--- NOTE | 2024-03-04 02:41 | PC.NURSE ---
Dr. Gonzalez speaking with [facility] at this time.
[2024-03-04 03:06] VITALS: BP 141/83; PULSE 82; RESP 15; TEMP 36.7; O2SAT 95
== END 2024-03-04 03:07 | disposition home or self-care (01) ==
PROVIDERS: Emergency Provider Emergency Medicine; PCP Physician Assistant
DX: R07.9 Chest pain, unspecified (principal); R53.1 Weakness; E11.9 Type 2 diabetes mellitus without complications; I10 Essential (primary) hypertension; E78.5 Hyperlipidemia, unspecified; E03.9 Hypothyroidism, unspecified; Z79.4 Long term (current) use of insulin; Z79.84 Long term (current) use of oral hypoglycemic drugs; Z86.73 Personal history of transient ischemic attack (TIA), and cerebral infarction without residual deficits; Z79.01 Long term (current) use of anticoagulants; Z79.85 Long-term (current) use of injectable non-insulin antidiabetic drugs
CPT/HCPCS: 71045; 80053; 80061; 81001; 83036; 84484; 85025; 87636; 93005; 96360; 99284

== ENCOUNTER 2024-04-04 22:31 | Observation (INO) | payer MEDICARE, OTHER, SELFPAY ==
--- NOTE | 2024-04-04 22:38 | CT_ITS ---
PROCEDURE INFORMATION: Exam: CT Head Without Contrast Exam date and time: 04/04/2024 10:43 PM Age: 58 years old Clinical indication: Stroke-like symptoms; Dizziness/giddiness; RT upper extremity and RT lower extremity weakness; Additional info: Possible stroke, R subject weak, dizzy TECHNIQUE: Imaging protocol: Computed tomography of the head without contrast. Radiation optimization: All CT scans at this facility use at least one of these dose optimization techniques: automated exposure control; mA and/or kV adjustment per patient size (includes targeted exams where dose is matched to clinical indication); or iterative reconstruction. Other technique: STROKE PROTOCOL was implemented. COMPARISON: MR HEAD/BRAIN WO CON 02/17/2024 10:21 AM FINDINGS: Brain: No acute infarct. No hemorrhage. Stable involutional changes of the brain. No midline shift. Cerebral ventricles: Stable ventricular size with stable ex vacuo prominence of the left lateral ventricle especially posteriorly. No ventriculomegaly. Paranasal sinuses: Chronic left maxillary sinus opacification is unchanged. Large region of chronic encephalomalacia in the left frontal, parietal and temporal lobe within the MCA territory is unchanged. Stable associated dystrophic calcifications on CT. Mastoid air cells: No significant inflammation. Bones: Unremarkable. No acute fracture. Soft tissues: Unremarkable. IMPRESSION: No acute intracranial abnormality. ASSESSMENT: ASPECTS ([place] Stroke Program Early CT Score) is 10.
--- NOTE | 2024-04-04 22:38 | CT_ITS ---
PROCEDURE INFORMATION: Exam: CTA Head With Contrast, Arteriography Exam date and time: 04/04/2024 10:49 PM Age: 58 years old Clinical indication: Stroke-like symptoms; Dizziness/giddiness; RT upper extremity and RT lower extremity weakness; Additional info: Possible stroke, R subject weak, dizzy TECHNIQUE: Imaging protocol: Computed tomographic angiography of the head with contrast. Exam focused on the arteries. 3D rendering (Not supervised by radiologist): MIP and/or 3D reconstructed images were created by the technologist. Radiation optimization: All CT scans at this facility use at least one of these dose optimization techniques: automated exposure control; mA and/or kV adjustment per patient size (includes targeted exams where dose is matched to clinical indication); or iterative reconstruction. Contrast material: ISOUVE 370; Contrast volume: 100 ml; Contrast route: INTRAVENOUS (IV); COMPARISON: CT ANGIO HEAD 02/16/2024 4:35 PM FINDINGS: ANTERIOR CIRCULATION: Right internal carotid artery: Atherosclerotic changes right internal carotid artery with stable moderate stenosis. Right middle cerebral artery: No occlusion or significant stenosis. No aneurysm. Right anterior cerebral artery: No occlusion or significant stenosis. No aneurysm. Left internal carotid artery: Intracranial segment is patent with no significant stenosis. No aneurysm. Left middle cerebral artery: Attenuated peripheral left MCA especially posteriorly corresponding with the large region of encephalomalacia on CT is unchanged. The proximal vessel remains patent. Left anterior cerebral artery: No occlusion or significant stenosis. No aneurysm. POSTERIOR CIRCULATION: Right vertebral artery: No occlusion or significant stenosis. No aneurysm. Left vertebral artery: No occlusion or significant stenosis. No aneurysm. Basilar artery: No occlusion or significant stenosis. No aneurysm. Right posterior cerebral artery: Mild stenosis in the right P2 [employer] and severe stenosis distally in the P3 segment is unchanged. Left posterior cerebral artery: Severe stenosis P1 segment left [employer] is unchanged. Additional severe region of stenosis in the left P2 segment is unchanged. The distal vessel is patent. Brain: No definite mass, mass effect, or midline shift. Cerebral ventricles: No ventriculomegaly. Bones/joints: No acute fracture. Soft tissues: Unremarkable. IMPRESSION: 1. No acute large vessel occlusion identified. 2. 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 Attenuated peripheral left MCA corresponding with known region of encephalomalacia is unchanged.
--- NOTE | 2024-04-04 22:38 | CT_ITS ---
PROCEDURE INFORMATION: Exam: CTA Neck With Contrast Exam date and time: 04/04/2024 10:49 PM Age: 58 years old Clinical indication: Stroke-like symptoms; Dizziness/giddiness; RT upper extremity and RT lower extremity weakness; Additional info: Possible stroke, R subject weak, dizzy TECHNIQUE: Imaging protocol: Computed tomographic angiography of the neck with contrast. Exam focused on the cervical segments of the vasculature. 3D rendering (Not supervised by radiologist): MIP and/or 3D reconstructed images were created by the technologist. Radiation optimization: All CT scans at this facility use at least one of these dose optimization techniques: automated exposure control; mA and/or kV adjustment per patient size (includes targeted exams where dose is matched to clinical indication); or iterative reconstruction. Contrast material: ISOUVE 370; Contrast volume: 100 ml; Contrast route: INTRAVENOUS (IV); COMPARISON: CT ANGIO NECK 02/16/2024 4:35 PM FINDINGS: Right common carotid artery: No stenosis. No dissection or occlusion. Right internal carotid artery: No stenosis of the extracranial segment. No dissection or occlusion. Right external carotid artery: No visible occlusion. Left common carotid artery: No stenosis. No dissection or occlusion. Left internal carotid artery: No stenosis of the extracranial segment. No dissection or occlusion. Left external carotid artery: No visible occlusion. 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 Left vertebral artery: No stenosis. No dissection or occlusion. Right subclavian artery: Aberrant right subclavian artery anatomic variant. Thyroid: Right hemithyroidectomy changes are stable. Soft tissues: No significant soft tissue swelling. Bones/joints: No acute fracture. IMPRESSION: No occlusion or significant stenosis. REFERENCES: NASCET CRITERIA. The degree of stenosis in the cervical segment of the internal carotid artery is based on NASCET criteria. Normal is no stenosis. Mild is less than 50% stenosis. Moderate is 50-69% stenosis. Severe is 70% to 99% stenosis. Total occlusion is no detectable patent lumen.
--- NOTE | 2024-04-04 22:38 | PC.NURSE ---
FS 682 @ [id number]
--- NOTE | 2024-04-04 22:39 | PC.NURSE ---
[facility] CALLED FOR STROKE ALERT AT THIS TIME
--- NOTE | 2024-04-04 22:44 | PC.NURSE ---
Patient to CT at this time.
--- NOTE | 2024-04-04 22:45 | HMH.EDGENADL ---
Discharge Plan Disposition Patient Disposition: Admitted Chief Complaint: Neuro Symptoms/Deficit Prescriptions Prescriptions: No Action pregabalin [Lyrica] 75 mg capsule 75 mg PO BID Qty: 60 2RF Eliquis 5 mg tablet 5 mg PO BID Qty: 180 0RF carvedilol 12.5 mg tablet 12.5 mg PO BID Qty: 180 0RF Rx Instructions: must administer with a meal/food insulin glargine [Lantus Solostar U-100 Insulin] 100 unit/mL (3 mL) insulin pen 40 unit SQ HS Qty: 15 2RF levetiracetam 500 mg tablet 500 mg PO BID Qty: 180 0RF levothyroxine [Synthroid] 50 mcg tablet 50 mcg PO DAILY Qty: 90 3RF Ozempic 0.25 mg or 0.5 mg (2 mg/3 mL) pen injector SQ Patient Comments: INJECT 0.25 MG SUBCUTANEOUSLY ONCE A WEEK FOR 4 WEEKS THEN increase TO 0.5 MG SUBCUTANEOUSLY ONCE A WEEK UNTIL FOLLOWING UP appointment (DME) pen needle, diabetic [BD Ultra-Fine Mini Pen Needle] 31 gauge x 3/16 needle See Rx Instructions .ROUTE .MEDSUPPLY Qty: 1200 Rx Instructions: As directed insulin lispro 100 unit/mL insulin pen SQ polyethylene glycol 3350 17 gram/dose powder PO trazodone 50 mg tablet PO donepezil 5 mg tablet PO losartan 100 mg tablet 100 mg PO DAILY acetaminophen 325 mg capsule 325 mg PO QID PRN atorvastatin 40 mg tablet 40 mg PO DAILY Qty: 90 3RF ergocalciferol (vitamin D2) 1,250 mcg (50,000 unit) capsule 1,250 mcg PO WEEKLY Qty: 14 3RF pantoprazole 40 mg tablet,delayed release (DR/EC) 40 mg PO DAILY Qty: 90 3RF aspirin 81 mg tablet,chewable 1 tab PO DAILY Qty: 90 3RF escitalopram oxalate [Lexapro] 10 mg tablet 10 mg PO DAILY Qty: 90 3RF (DME) Dexcom G7 Sensor Device See Rx Instructions .Route Qty: 1 3RF Rx Instructions: As directed Referrals Follow up/Referrals: Margoth Brand PA [Primary Care Provider] - See instructions Clinical Impressions Clinical Impression: Acute CVA (cerebrovascular accident) Discharge ED Provider: Ricardo Sultana General Adult HPI General Chief complaint: Neuro Symptoms/Deficit Stated complaint: SLURRED SPEECH Time Seen by Provider: 04/04/24 22:31 History of Present Illness HPI narrative: Patient is a 58-year-old female past medical history of cerebellar stroke in February, insulin-dependent diabetes, expressive aphasia who presents emergency department for evaluation of strokelike symptoms. Onset was acute, LNN 2100. Patient had subjective right-sided sensation changes and weakness compared to baseline, dysarthria compared to baseline. Per chart review in early February pain patient had severely decreased flow through M2 and M3 segments of the left MCA, severely decreased flow or occlusion of the M3 segment posteriorly, bilateral [employer] stenoses that were severe. Patient was transferred to [facility], subsequently transferred to rehab and discharged home. Patient's residual stroke deficit's were expressive aphasia however patient reportedly did not have any significant dysarthria. She is accompanied by family member at bedside. Due to these new symptoms she presents here for continued evaluation. Related Data Home Medications Medication Instructions Recorded Confirmed acetaminophen 325 mg capsule 325 mg PO QID PRN 03/23/24 03/31/24 donepezil 5 mg tablet mg PO 03/31/24 03/31/24 insulin lispro 100 unit/mL SQ 03/31/24 03/31/24 subcutaneous pen losartan 100 mg tablet 100 mg PO DAILY 03/31/24 03/31/24 pen needle, diabetic 31 gauge x #1,200 ea 03/31/24 03/31/2401/30 (BD Ultra-Fine Mini Pen Needle) polyethylene glycol 3350 17 g PO 03/31/24 03/31/24 gram/dose oral powder semaglutide 0.25 mg or 0.5 mg (2 mg SQ 03/31/24 03/31/24 mg/3 mL) subcutaneous pen injector (Ozempic) trazodone 50 mg tablet mg PO 03/31/24 03/31/24 Previous Rx's Medication Instructions Recorded pregabalin 75 mg capsule (Lyrica) 75 mg PO BID #60 caps 02/04/24 apixaban 5 mg tablet (Eliquis) 5 mg PO BID #180 tabs 03/02/24 carvedilol 12.5 mg tablet 12.5 mg PO BID #180 tabs 03/02/24 insulin glargine 100 unit/mL (3 40 unit (0.4 mL) SQ HS #15 mL 03/02/24 mL) subcutaneous pen (Lantus Solostar U-100 Insulin) levetiracetam 500 mg tablet 500 mg PO BID #180 tabs 03/02/24 levothyroxine 50 mcg tablet 50 mcg PO DAILY #90 tabs 03/02/24 (Synthroid) aspirin 81 mg chewable tablet 1 tab PO DAILY #90 tabs 03/23/24 atorvastatin 40 mg tablet 40 mg PO DAILY #90 tabs 03/23/24 blood-glucose sensor (Dexcom G7 #1 ea 03/23/24 Sensor device) ergocalciferol (vitamin D2) 1,250 1,250 mcg PO WEEKLY #14 caps 03/23/24 mcg (50,000 unit) capsule escitalopram oxalate 10 mg tablet 10 mg PO DAILY #90 tabs 03/23/24 (Lexapro) pantoprazole 40 mg tablet,delayed 40 mg PO DAILY #90 tabs 03/23/24 release Allergies Allergy/AdvReac Type Severity Reaction Status Date / Time No Known Allergies Allergy Verified 03/31/24 14:05 [facility] Disclaimer: The information contained in this section may have been updated after the patient was seen, as this information can be updated by other users. Medical History (Updated 04/04/24 @ 23:37 by Ricardo Sultana MD) Rectal bleed Expressive aphasia Hypothyroidism Seizure Dysphagia Vaginal discharge Type 2 diabetes mellitus with diabetic neuropathy Stroke TIA (transient ischemic attack) Urinary Incontinence Dysphagia Esophageal foreign body History of multiple strokes Generalized weakness Depression Urinary leakage Persistent complex bereavement disorder Adjustment disorder with depressed mood History of stroke Heart failure Kidney disease 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, type 2 Hypertension Surgical History Hx of total thyroidectomy Hx of hysterectomy History of colonoscopy Family History Father Heart disease Mother Stroke Social History Smoking Status: Unknown if ever smoked alcohol intake: never substance use type: denies use current occupational status: unemployed and disabled Travel in the last 8 weeks: None number of children: 4 ROS Obtained: Yes Systems reviewed as appropriate & no additional complaints except as documented Physical Exam General General appearance: alert and in no apparent distress Head Head exam: atraumatic and normocephalic Eye Eye exam: Present PERRL ENT ENT exam: Present mucous membranes moist Neck Neck exam: Present normal inspection Chest Chest inspection: Present normal inspection and symmetric chest wall rise Respiratory Respiratory exam: Absent respiratory distress Cardiovascular Cardiovascular exam: Present regular rate and normal rhythm Abdominal Exam Abdominal exam: Present soft; Absent tenderness Extremities Exam Extremities exam: Present normal inspection Neurological Exam Neurological exam: Present alert and other (NIH 9, 2 for level of consciousness, 2 for sensory changes right side, 2 for best language, 2 for dysarthria, 1 for inattention to the right side.) Psychiatric Psychiatric exam: Present normal affect Skin Skin exam: Present warm and dry Medical Decision Making Chandan Inquiry Pt receiving controlled substance: No Vital Signs: 04/04/24 22:51 Temperature 98.1 F Temperature Source Oral Pulse Rate [Left Radial] 58 L Respiratory Rate 18 Blood Pressure [Right Arm] 144/74 H Blood Pressure Mean [Right Arm] 97 Blood Pressure Source [Right Arm] Automatic Cuff Blood Pressure Position [Right Arm] Sitting 02 Sat by Pulse Oximetry 96 Oxygen Delivery Method Room Air Lab Data Lab Results 04/04/24 22:40: WBC 4.9, RBC 4.44, Hgb 12.5, Hct 38.7, MCV 87.2, MCH 28.3, MCHC 32.4, RDW 15.3, Plt Count 197, MPV 7.8, Neut % (Auto) 53.3, Lymph % (Auto) 37.1, [place] % (Auto) 5.2, Eos % (Auto) 3.4, Baso % (Auto) 0.9, Neut # (Auto) 2.6, Lymph # (Auto) 1.8, [place] # (Auto) 0.3, Eos # (Auto) 0.2, Baso # (Auto) 0.0, PT 10.5, INR 0.97, APTT 32.2 H, Sodium 140, Potassium 4.1, Chloride 104, Carbon Dioxide 25, Anion Gap 15.1 H, BUN 14, Creatinine 0.90, Estimated GFR 65, Est GFR ( Amer) 78, Glucose 223 H, Calcium 9.3, Total Bilirubin 0.7, AST 29, ALT 26, Alkaline Phosphatase 52, Troponin I < 0.01, Total Protein 6.7, Albumin 4.1, Globulin 2.6, Albumin/Globulin Ratio 1.6, Triglycerides 269 H, Cholesterol 153, LDL Cholesterol Direct 73.96 L, VLDL Cholesterol 54 H, HDL Cholesterol 33 L, Cholesterol/HDL Ratio 4.6 H, Plasma/Serum Alcohol < 10 04/04/24 22:40 04/04/24 22:40 Orders (Tests/Meds): ED MEDICATIONS Generic Name Dose Route Start Last Admin Trade Name Freq PRN Reason Stop Dose Admin Sodium Chloride 10 ml 04/04/24 22:38 Sodium Chloride 0.9% 10ml Flush Syringe IV 05/04/24 22:37 NEEDED PRN Maintain IV Site Sodium Chloride 10 ml 04/04/24 22:55 04/04/24 22:57 Sodium Chloride 0.9% 10ml Syr (Rad Only) IV 05/04/24 22:54 10 ml NEEDED PRN Administration Maintain IV Site Discontinued Medications Generic Name Dose Route Start Last Admin Trade Name Freq PRN Reason Stop Dose Admin Iopamidol 100 ml 04/04/24 22:55 04/04/24 22:57 Iopamidol-370 (76%);100ml Bottle IV 04/04/24 22:56 100 ml ONCE ONE Administration Sodium Chloride 50 ml 04/04/24 22:55 04/04/24 22:58 0.9 % Sodium Chloride 50 Ml Vial IV 04/04/24 22:56 50 ml ONCE ONE Administration ORDERS Category Date Time Status CT angio head Stat Cat Scan 04/04/24 22:[address] angio neck Stat Cat Scan 04/04/24 22:[address] head/brain wo con Stat Cat Scan 04/04/24 22:38 Completed Activated Partial Thrombo Time Stat Lab 04/04/24 22:40 Completed Complete Blood Count Auto Diff Stat Lab 04/04/24 22:40 Completed Comprehensive Metabolic Panel Stat Lab 04/04/24 22:40 Completed Drug Screen,Urine Stat Lab 04/04/24 22:38 Ordered Ethyl Alcohol Stat Lab 04/04/24 22:40 Completed Lipid Panel Stat Lab 04/04/24 22:40 Completed Prothrombin Time INR Stat Lab 04/04/24 22:40 Completed Troponin I Q3H Lab 04/05/24 01:45 Ordered Troponin I Q3H Lab 04/05/24 04:45 Ordered Troponin I Stat Lab 04/04/24 22:40 Completed Urinalysis and Microscopic Stat Lab 04/04/24 22:38 Ordered ECG Request Stat Y 04/04/24 22:38 Ordered Medical Decision Narrative: In summary patient is a 58-year-old female past medical history described above who presents emergency department for evaluation of strokelike symptoms with a history of recent CVA with expressive aphasia at baseline. Patient is hemodynamically stable nontoxic-appearing upon arrival, afebrile. Fingerstick blood glucose elevated but not dangerously elevated to explain patient's symptoms. Patient's NIH is 9 (2 for level of consciousness, 2 for sensory right-sided changes, 2 for best language, 2 for dysarthria, 1 for inattention right side on touch). Patient undergo stroke protocol with CT imaging and hematologic labs. I discussed the case with radiology, no acute findings, no acute large vessel occlusion. Viz. AI was activated, diffuse intracranial atherosclerotic disease without large vessel occlusion. Unfortunately patient has had a CVA within the last 3 months and tPA is contraindicated. Workup reviewed by me from hematologic lab standpoint and is largely nonactionable, glucose 223. The case was discussed with hospital medicine given the patient has nondisabling stroke is appropriate for institution will be admitted for continued evaluation at this time. Critical Care Critical Care Time Critical Care Time: Yes Attestation: On 04/04/24, the high probability of a clinically significant, sudden or life threatening deterioration of the following system(s) required my full and direct attention, intervention and personal management. The time I documented below is in addition to time spent performing reported procedures but includes the following listed in this critical care notation. Total Time Total Critical Care Time: 35
[2024-04-04 22:50] LABS: Basophils % 0.9 % (0.1-2.0); Eosinophils # 0.2 K/mm3 (0.0-0.4); Eosinophils % 3.4 % (0.1-12.0); Hematocrit 38.7 % (37.0-47.0); Hemoglobin 12.5 g/dL (12.2-16.2); Lymphocytes # 1.8 K/mm3 (0.7-4.5); Lymphocytes % 37.1 % (10-50); Mean Corpuscular HGB Conc 32.4 g/dL (31.8-35.4); Mean Corpuscular Hemoglobin 28.3 pg (27.0-31.2); Mean Corpuscular Volume 87.2 fl (81-99); Mean Platelet Volume 7.8 fl (7.4-10.4); Monocytes # 0.3 K/mm3 (0.1-1.0); Monocytes % 5.2 % (1.7-9.3); Neutrophils # 2.6 K/mm3 (1.8-7.8); Neutrophils % 53.3 % (37.0-80.0); Platelet Count 197 K/mm3 (142-424); Red Blood Count 4.44 M/mm3 (4.20-5.40); Red Cell Distribution Width 15.3 % (11.5-17.5); White Blood Count 4.9 K/mm3 (4.8-10.8)
[2024-04-04 22:51] VITALS: BP 144/74; PULSE 58; RESP 18; TEMP 36.7; O2SAT 96; BMI 35.4
[2024-04-04 22:57] LABS: Alanine Aminotransferase 26 U/L (12-78); Albumin Level 4.1 g/dl (3.5-5.0); Albumin/Globulin Ratio 1.6 (1.1-1.8); Alkaline Phosphatase 52 U/L (38-126); Anion Gap 15.1 mEq/L (5-15); Aspartate Amino Transferase 29 U/L (14-36); Bilirubin,Total 0.7 mg/dl (0.2-1.3); Blood Urea Nitrogen 14 mg/dl (7-17); Calcium 9.3 mg/dl (8.4-10.2); Carbon Dioxide 25 mmol/L (22.0-30.0); Chloride 104 mmol/L (98-107); Chol/HDL Ratio 4.6 (1-3.5); Cholesterol 153 mg/dl (140-200); Estimated Glomerular Filt Rate 65 ml/min (>60); GFR (African American) 78 ML/MIN (>60); Globulin 2.6 g/dL (1.3-3.2); Glucose 223 mg/dl (74-100); HDL Cholesterol 33 mg/dl (40-60); Potassium 4.1 mmoL/L (3.5-5.1); Sodium 140 mmol/L (136-145); Total Protein,Serum 6.7 g/dl (6.3-8.2); Triglycerides 269 mg/dl (30-150); VLDL Cholesterol 54 mg/dL (0-40)
[2024-04-04] MEDS: IOPAMIDOL-370 (76%);100ML BOTTLE 100 ML IV (22:57)
[2024-04-04] MEDS: SODIUM CHLORIDE 0.9% 10ML SYR (RAD ONLY) 10 ML IV (22:57)
[2024-04-04 22:58] LABS: Activated Partial Thrombo Time 32.2 seconds (22.8-30.6); Ethyl Alcohol < 10 mg/dl (0-10); INR 0.97 (0.9-1.1); Prothrombin Time 10.5 seconds (10.1-12.5)
[2024-04-04] MEDS: 0.9 % SODIUM CHLORIDE 50 ML VIAL IV (22:58)
--- NOTE | 2024-04-04 23:00 | ECG_ITS ---
APPROVED REPORT Exam: Resting ECG HR:55 bpm ECG Measurements Heart Rate 55 AXES MI 181 P 22 QRSd 91 QRS -6 QT 455 T 20 QTc 444 Conclusion SINUS BRADYCARDIA NONSPECIFIC T-WAVE ABNORMALITY BORDERLINE ECG Electronically signed by : MONICO SCHUMACHER, 04/10/2024 04:14:47
[2024-04-04 23:08] LABS: Direct LDL Cholesterol 73.96 mg/dL (100-129)
[2024-04-04 23:13] LABS: Troponin I < 0.01 ng/ml (0.00-0.034)
--- NOTE | 2024-04-04 23:17 | PC.NURSE ---
MD Sultana on phone with [facility] now
--- NOTE | 2024-04-04 23:39 | PC.NURSE ---
house notified of need for bed
--- NOTE | 2024-04-04 23:40 | EXP.HP ---
History of Present Illness *Admission Date: 04/04/24 *Reason for visit:: CVA *History of present illness: This is A 58-year-old female with PMHx of 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 strokelike symptoms with a history of recent CVA with expressive aphasia at baseline. Patient is hemodynamically stable nontoxic-appearing upon arrival, afebrile. Fingerstick blood glucose elevated but not dangerously elevated to explain patient's symptoms. Patient's NIH is 9 (2 for level of consciousness, 2 for sensory right-sided changes, 2 for best language, 2 for dysarthria, 1 for inattention right side on touch). Patient's residual stroke deficit's were expressive aphasia however patient reportedly did not have any significant dysarthria. She is accompanied by family member at bedside. Due to these new symptoms she presents here for continued evaluation. Admitted for further work up and monitoring. [facility] Disclaimer: The information contained in this section may have been updated after the patient was seen, as this information can be updated by other users. Medical History (Updated 04/04/24 @ 23:37 by Ricardo Sultana MD) Rectal bleed Expressive aphasia Hypothyroidism Seizure Dysphagia Vaginal discharge Type 2 diabetes mellitus with diabetic neuropathy Stroke TIA (transient ischemic attack) Urinary Incontinence Dysphagia Esophageal foreign body History of multiple strokes Generalized weakness Depression Urinary leakage Persistent complex bereavement disorder Adjustment disorder with depressed mood History of stroke Heart failure Kidney disease 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, type 2 Hypertension Surgical History Hx of total thyroidectomy Hx of hysterectomy History of colonoscopy Family History Father Heart disease Mother Stroke Social History Smoking Status: Unknown if ever smoked alcohol intake: never substance use type: denies use current occupational status: unemployed and disabled Travel in the last 8 weeks: None number of children: 4 Review of Systems Review of Systems Review of systems:: pertinent systems reviewed and negative unless documented below Meds Home Medications and Allergies Home Medications Medication Instructions Recorded Confirmed Type blood-glucose sensor (Dexcom G7 #1 ea 03/23/24 03/23/24 Rx Sensor device) donepezil 5 mg tablet 5 mg PO HS MEMORY 03/31/24 04/05/24 History insulin lispro 100 unit/mL 10 unit SQ TIDWMEAL dm 03/31/24 04/05/24 History subcutaneous pen losartan 100 mg tablet 100 mg PO DAILY htn 03/31/24 04/05/24 History pen needle, diabetic 31 gauge x #1,200 ea 03/31/24 03/31/24 History 3/16 (BD Ultra-Fine Mini Pen Needle) polyethylene glycol 3350 17 17 g PO DAILY Constipation 03/31/24 04/05/24 History gram/dose oral powder trazodone 50 mg tablet 50 mg PO HS Insomnia 03/31/24 04/05/24 History acetaminophen 500 mg tablet 500 mg PO Q6HP PRN Pain 04/05/24 04/05/24 History apixaban 5 mg tablet (Eliquis) 5 mg PO BID a fib 04/05/24 04/05/24 History aspirin 81 mg chewable tablet 1 tab PO DAILY cva 04/05/24 04/05/24 History atorvastatin 40 mg tablet 40 mg PO HS High Cholesterol 04/05/24 04/05/24 History carvedilol 12.5 mg tablet 12.5 mg PO BID A FIB 04/05/24 04/05/24 History ergocalciferol (vitamin D2) 1,250 1,250 mcg PO WEEKLY Supplement 04/05/24 04/05/24 History mcg (50,000 unit) capsule escitalopram oxalate 10 mg tablet 5 mg PO DAILY Depression 04/05/24 04/05/24 History (Lexapro) insulin glargine 100 unit/mL (3 34 unit SQ HS dm 04/05/24 04/05/24 History mL) subcutaneous pen (Lantus Solostar U-100 Insulin) insulin lispro 100 unit/mL See Rx Instructions .Route 04/05/24 04/05/24 History subcutaneous solution .COMPLEX DM levetiracetam 500 mg tablet 500 mg PO BID SEIZURES 04/05/24 04/05/24 History levothyroxine 50 mcg tablet 50 mcg PO DAILY HYPOTHYROIDISM 04/05/24 04/05/24 History (Synthroid) pantoprazole 40 mg tablet,delayed 40 mg PO DAILY gerd 04/05/24 04/05/24 History release phenyleph-shark liver 1 applic LA BID HEMORRHOIDS 04/05/24 04/05/24 History day-bofrtu-gsk rectal cream pregabalin 75 mg capsule (Lyrica) 75 mg PO BID NEUROPATHY 04/05/24 04/05/24 History New Prescriptions to Start Prescriptions: Allergies Allergy/AdvReac Type Severity Reaction Status Date / Time No Known Allergies Allergy Verified 03/31/24 14:05 Exam Data for Last 24 hours Vital signs and Labs for Last 24 Hours: Temp Pulse Resp BP Pulse Ox O2 Del Method 98.1 F 58 L 18 144/74 H 96 Room Air 04/04/24 22:51 04/04/24 22:51 04/04/24 22:51 04/04/24 22:51 04/04/24 22:51 04/04/24 22:51 Laboratory Results - last 24 hr 04/04/24 22:40: WBC 4.9, RBC 4.44, Hgb 12.5, Hct 38.7, MCV 87.2, MCH 28.3, MCHC 32.4, RDW 15.3, Plt Count 197, MPV 7.8, Neut % (Auto) 53.3, Lymph % (Auto) 37.1, [place] % (Auto) 5.2, Eos % (Auto) 3.4, Baso % (Auto) 0.9, Neut # (Auto) 2.6, Lymph # (Auto) 1.8, [place] # (Auto) 0.3, Eos # (Auto) 0.2, Baso # (Auto) 0.0, PT 10.5, INR 0.97, APTT 32.2 H, Sodium 140, Potassium 4.1, Chloride 104, Carbon Dioxide 25, Anion Gap 15.1 H, BUN 14, Creatinine 0.90, Estimated GFR 65, Est GFR ( Amer) 78, Glucose 223 H, Calcium 9.3, Total Bilirubin 0.7, AST 29, ALT 26, Alkaline Phosphatase 52, Troponin I < 0.01, Total Protein 6.7, Albumin 4.1, Globulin 2.6, Albumin/Globulin Ratio 1.6, Triglycerides 269 H, Cholesterol 153, LDL Cholesterol Direct 73.96 L, VLDL Cholesterol 54 H, HDL Cholesterol 33 L, Cholesterol/HDL Ratio 4.6 H, Plasma/Serum Alcohol < 10 Temp Pulse Resp BP Pulse Ox O2 Del Method 98.3 F 72 18 120/80 97 Room Air 02/16/24 18:37 02/16/24 18:37 02/16/24 18:37 02/16/24 18:37 02/16/24 18:37 02/16/24 19:00 Laboratory Results - last 24 hr 02/16/24 15:36: WBC 6.2, RBC 4.72, Hgb 13.5, Hct 42.0, MCV 89.0, MCH 28.5, MCHC 32.0, RDW 14.6, Plt Count 209, MPV 7.9, Neut % (Auto) 58.2, Lymph % (Auto) 32.0, [place] % (Auto) 4.4, Eos % (Auto) 4.2, Baso % (Auto) 1.1, Neut # (Auto) 3.6, Lymph # (Auto) 2.0, [place] # (Auto) 0.3, Eos # (Auto) 0.3, Baso # (Auto) 0.1, PT 10.6, INR 0.98, APTT 31.8 H, Sodium 141, Potassium 3.8, Chloride 107, Carbon Dioxide 23, Anion Gap 14.8, BUN 14, Creatinine 0.90, Estimated Creat Clear 98, Estimated GFR 65, Est GFR ( Amer) 78, Glucose 202 H, Calcium 9.2, Total Bilirubin 0.7, AST 30, ALT 24, Alkaline Phosphatase 63, Troponin I < 0.01, Total Protein 6.8, Albumin 4.1, Globulin 2.7, Albumin/Globulin Ratio 1.5, TSH 0.48, Thyroxine (T4) 9.2 02/16/24 15:55: SARS-CoV-2 (PCR) Not detected, Influenza A Untype (PCR) Not detected, Influenza Type B (PCR) Not detected 02/16/24 16:30: Urine Color Yellow, Urine Appearance Clear, Urine pH 6.0, Ur Specific [place] >= 1.030, Urine Protein Negative, Urine Glucose (UA) Negative, Urine Ketones Negative, Urine Blood Negative, Urine Nitrate Negative, Urine Bilirubin Negative, Urine Urobilinogen 1.0, Ur Leukocyte Esterase Negative, Urine RBC None, Urine WBC None, Ur Squamous Epith Cells 3-5, Urine Bacteria Trace 02/16/24 19:00: Troponin I < 0.01 I & O for Last 24 hours: Intake & Output 04/01/24 04/02/24 04/03/24 04/04/24 23:59 23:59 23:59 23:59 Weight 90.718 kg Intake & Output 02/13/24 02/14/24 02/15/24 02/16/24 23:59 23:59 23:59 23:59 Weight 89.613 kg Constitutional Constitutional: no acute distress and cooperative *Routine HEENT Exam Head: Present normocephalic Eye: Present EOMI and PERRL ENT: Present mucous membranes moist *Routine Neck Exam Neck: Present supple; Absent lymphadenopathy *Routine Respiratory Exam Respiratory: Present CTA bilaterally *Routine Cardiovascular Exam Cardiovascular: Present RRR *Routine Abdominal Exam Abdominal: Present soft and normoactive bowel sounds; Absent tenderness *Routine Rectal Exam Rectal:: deferred *Routine Genitalia Exam Genitalia:: deferred *Routine Extremities Exam Extremities: Absent cyanosis, clubbing or edema *Routine Skin Exam Skin: Present warm; Absent rash *Routine Neurological Exam Neurological: Present alert, oriented X3, normal reflexes and moving all extremities; Absent motor deficit, nystagmus, hemineglect or facial asymmetry Routine Psychiatric Exam Psychiatric: Present good insight H&P: Result Imaging and Cardiology EKG: Status: image reviewed by me, Preliminary report and final report CT scan - head: Status: image reviewed by me, Preliminary report and final report Assessment and Plan *Assessment and plan (1) TIA (transient ischemic attack): Status: Acute Category: Medical Code(s): G45.9 - Transient cerebral ischemic attack, unspecified (2) Stroke: Status: Chronic Qualifiers: CVA mechanism: stenosis Laterality of affected vessel: left Precerebral and cerebral artery: posterior cerebral artery Qualified Code(s): I63.532 - Cerebral infarction due to unspecified occlusion or stenosis of left posterior cerebral artery Category: Medical Code(s): I63.9 - Cerebral infarction, unspecified (3) Type 2 diabetes mellitus with diabetic neuropathy: Status: Chronic Qualifiers: 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 terminal make up operator insulin use: with terminal make up operator use Qualified Code(s): E11.40 - Type 2 diabetes mellitus with diabetic neuropathy, unspecified; Z79.4 - salvage determiner (current) use of insulin Category: Medical Code(s): E11.40 - Type 2 diabetes mellitus with diabetic neuropathy, unspecified (4) Heart failure: Status: Acute Qualifiers: Heart failure chronicity: unspecified Heart failure type: unspecified Qualified Code(s): I50.9 - Heart failure, unspecified Category: Medical Code(s): I50.9 - Heart failure, unspecified (5) Hypertension: Status: Chronic Qualifiers: Hypertension type: unspecified Qualified Code(s): I10 - Essential (primary) hypertension Category: Medical Code(s): I10 - Essential (primary) hypertension (6) Kidney disease: Status: Acute Category: Medical Code(s): N28.9 - Disorder of kidney and ureter, unspecified (7) Hypothyroidism: Status: Chronic Qualifiers: Hypothyroidism type: unspecified Qualified Code(s): E03.9 - Hypothyroidism, unspecified Category: Medical Code(s): E03.9 - Hypothyroidism, unspecified (8) Seizure: Status: Chronic Category: Medical Code(s): R56.9 - Unspecified convulsions Plan 58-year-old female with PMHx of 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 Patient's NIH is 9 (2 for level of consciousness, 2 for sensory right-sided changes, 2 for best language, 2 for dysarthria, 1 for inattention right side on touch). Patient undergo stroke protocol with CT imaging and hematologic labs. I discussed the case with radiology, no acute findings, no acute large vessel occlusion. Findings discussed extensively with ED. Agreed for admission. At the time of evaluation. patient remains stable, NIHSS is 2. Plan as follow: - TIA/ stroke secondary to left DIRECTOR OF LABOR AND DELIVERY stenosis: Admit patient for continuos neuro monitoring. dispo med-surg neuro check q4 and as needed. CT of head STAT if neuroconditions deteriorate permissive hypertension MRI of the brain ordered. resume eliquis, statin and aspirin. repeat labs Advance diet as tolerated IDDM with Hyperglicemia: a1c 8.3. optimize BS and diet resume home lantus and Mix insuline accucheck before meals sliding scale others chronic conditions HTN, CHF, Hypothyroidism, Seizure disorder: conditions reviewed,. Home medications regimen reconciled and resume continue monitoring on eliquis. Protonix for GI bleed protection . Full code.
[2024-04-04 23:49] LABS: Microscopic, Urine URINE MICROSCOPIC (MICROSCOPIC)
[2024-04-05] VITALS (7 sets, daily range): BP systolic 129–171; BP diastolic 80–93; PULSE 50–90; RESP 16–20; TEMP 36.4–36.8; O2SAT 93–100; BMI 35.4
[2024-04-05] LABS: Appearance,Urine CLEAR (Clear); Bilirubin,Urine Negative (Negative); Blood, Urine Negative (Negative); Color,Urine YELLOW (Yellow); Glucose,Urine (UA) Negative (Negative); Ketones,Urine Negative (Negative); Leukocyte Esterase,Urine Negative (Negative); Nitrate,Urine Negative (Negative); PH,Urine 5.5 (5.0-8.5); Protein,Urine Negative (Negative); Specific Gravity, Urine <= 1.005 (1.005-1.030); Urobilinogen,Urine 0.2 EU/dl (0.2)
[2024-04-05 00:12] LABS: Barbiturates Screen,Urine Negative ng/ml (<200)
[2024-04-05 00:13] LABS: Amphetamine/Metha Screen,Urine Negative ng/ml (<1000); Benzodiazepines Screen,Urine Negative ng/ml (<200)
[2024-04-05 00:14] LABS: Cannabinoid Screen,Urine Negative ng/ml (<50)
[2024-04-05 00:15] LABS: Cocaine Screen,Urine Negative ng/ml (<300); Methadone Screen,Urine Negative ng/ml (<300)
[2024-04-05 00:16] LABS: Opiate Screen,Urine Negative ng/ml (<300); Phencyclidine Screen,Urine Negative ng/ml (<25)
--- NOTE | 2024-04-05 00:31 | PC.NURSE ---
report called to Maria Del Carmen at this time
--- NOTE | 2024-04-05 00:46 | PC.NURSE ---
patient arrived to unit via wheelchair accompanied by staff in stable condition
[2024-04-05] MEDS: 0.9 % SODIUM CHLORIDE 1000ML 1,000 ML 75 ML IV ×2 (01:18→23:29)
[2024-04-05] MEDS: ACETAMINOPHEN 325MG TAB 650 MG PO ×2 (01:19→16:35)
[2024-04-05 02:16] LABS: Troponin I < 0.01 ng/ml (0.00-0.034)
--- NOTE | 2024-04-05 04:33 | PC.NURSE ---
Since arriving to the floor the patient has had a good night. After the admission was done patient was able to sleep, no complaints from the patient for family in the room
[2024-04-05 06:03] LABS: POC Glucose,Bedside 157 (70-110)
[2024-04-05 07:34] LABS: Basophils % 0.8 % (0.1-2.0); Eosinophils # 0.2 K/mm3 (0.0-0.4); Hematocrit 38.2 % (37.0-47.0); Hemoglobin 12.1 g/dL (12.2-16.2); Lymphocytes # 1.7 K/mm3 (0.7-4.5); Lymphocytes % 35.1 % (10-50); Mean Corpuscular HGB Conc 31.8 g/dL (31.8-35.4); Mean Corpuscular Volume 88.1 fl (81-99); Mean Platelet Volume 8.4 fl (7.4-10.4); Monocytes # 0.2 K/mm3 (0.1-1.0); Monocytes % 4.8 % (1.7-9.3); Neutrophils # 2.6 K/mm3 (1.8-7.8); Neutrophils % 55.4 % (37.0-80.0); Platelet Count 176 K/mm3 (142-424); Red Blood Count 4.34 M/mm3 (4.20-5.40); Red Cell Distribution Width 15.2 % (11.5-17.5); White Blood Count 4.7 K/mm3 (4.8-10.8)
[2024-04-05 07:48] LABS: Troponin I < 0.01 ng/ml (0.00-0.034)
--- NOTE | 2024-04-05 08:26 | HMH.PHAINT1 ---
Pharmacy Intervention Comments: MEDICATION RECONCILIATION COMPLETED ON PATIENT USING EXTERNAL FILL HISTORY FROM PHARMACY AND LIST FROM PCP OFFICE. -PREM ROJO, LORIND
--- NOTE | 2024-04-05 09:00 | MR_ITS ---
FINAL REPORT CLINICAL HISTORY: R/O STROKE COMPARISON: 02/17/2024 FINDINGS: Multi planar MR imaging was obtained through the brain without contrast. The midline structures appear intact. There is no evidence of Chiari malformation. There is extensive encephalomalacia throughout the left temporal and parietal lobes. This is unchanged compared to the prior exam. There is marginal gliosis. On diffusion-weighted images there is no evidence of restricted diffusion. There are small scattered foci of abnormal signal in the deep white matter bilaterally. The visualized paranasal sinuses demonstrate a large retention cyst in the left maxillary sinus. The seventh and eighth nerve root complexes are intact. IMPRESSION: Stable exam compared to the prior exam. No acute intracranial abnormality. Reviewed, Interpreted and Dictated by Prakash Galeano MD Transcribed by Rissa Gutierrez Authenticated and [facility]
[2024-04-05 10:04] LABS: Alanine Aminotransferase 23 U/L (12-78); Albumin Level 3.9 g/dl (3.5-5.0); Albumin/Globulin Ratio 1.5 (1.1-1.8); Alkaline Phosphatase 62 U/L (38-126); Anion Gap 12.2 mEq/L (5-15); Aspartate Amino Transferase 26 U/L (14-36); Bilirubin,Total 0.5 mg/dl (0.2-1.3); Blood Urea Nitrogen 18 mg/dl (7-17); Carbon Dioxide 25 mmol/L (22.0-30.0); Chloride 106 mmol/L (98-107); Creatinine Clearance Estimated 99 mL/min (50-200); Estimated Glomerular Filt Rate 65 ml/min (>60); GFR (African American) 78 ML/MIN (>60); Globulin 2.6 g/dL (1.3-3.2); Glucose 151 mg/dl (74-100); Magnesium 1.7 mg/dl (1.6-2.3); Potassium 3.2 mmoL/L (3.5-5.1); Sodium 140 mmol/L (136-145); Total Protein,Serum 6.5 g/dl (6.3-8.2)
--- NOTE | 2024-04-05 10:22 | HMH.SLAPHASI ---
Speech & Language Evaluation Speech/Language Aphasia Evaluation Start: 04/05/24 09:18 Freq: once Status: Complete Protocol: Document 04/05/24 09:18 [employer] (Rec: 04/05/24 10:22 [facility]) Aphasia Assessment/Goals/Plan Assessment Date of Evaluation: 04/05/24 Evaluation Type Initial Certification Assessment/Problems CVA per MD order Does Patient Qualify for Service Yes Qualify/Failure Comment Based on clinical observations made throughout cognitive linguistic and motor speech informal assessments completed at the bedside, Salena Dave would benefit from skilled speech therapy services to address her deficits. Plan Pt will be seen # times/week 3 for # weeks 4 Anticipate reaching STG in # weeks 2 Anticipate reaching LTG in # weeks 4 Pt/Guardian verbally ack understanding Yes of dx/prognosis/goals G -code Required No STG-Auditory Comprehension 2nd Element 75 STG-Verbal Expressive Language Automatic Speech 70 Sentence Completion 75 Word Naming 70 STG-Attending/Orientation/Memory Orientation 75 Alf Goals Increase verbal expression skills to Yes: 75% communicate w/family & friends. Increase cognitive skills to communicate Yes: 75% w/family & friends Education Instructions provided Discussed POC and goals with patient and care management both of which expressed understanding. Pt/Caregiver Able to Recall Information Able to recall/restate Reinforcement needed No Speech & Language HPI History Present Illness Description of Patient Problem Pt is a 58-year-old female with PMHx of 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 strokelike symptoms with a history of recent CVA with expressive aphasia at baseline . Patient is hemodynamically stable nontoxic-appearing upon arrival, afebrile. Fingerstick blood glucose elevated but not dangerously elevated to explain patient's symptoms. Patient's NIH is 9 (2 for level of consciousness, 2 for sensory right-sided changes, 2 for best language, 2 for dysarthria, 1 for inattention right side on touch). Patient's residual stroke deficit's were expressive aphasia however patient reportedly did not have any significant dysarthria. She is accompanied by family member at bedside. Due to these new symptoms she presents here for continued evaluation. Admitted for further work up and monitoring. Head CTA impressions reported IMPRESSION: 1. No acute large vessel occlusion identified. 2. Intracranial atherosclerosis with severe stenosis bilaterally in the line runner is unchanged. Attenuated peripheral left MCA corresponding with known region of encephalomalacia is unchanged. Pt was being taken to MRI following assessment. Rehab Services Assessed Speech therapy Is this evaluation r/t stroke? Yes Language Primary Language Mal[place]ian Aphasia Evaluations Communication Speech Intelligibility Severe expressive aphasia. Broken sentences, overgeneralization. Anomia. Auditory Comprehension Yes: Word Level Sentences Conversation No: Following Directions Paragraph AC Comment Pt requires moderate repetitions of directional tasks or paragraph reading to answer questions. Reading Comprehension No: Letter Naming Word Naming Sentences Paragraphs HARLAN Comment Pt has expressive aphasia, AAC device not present at time of evaluation. PATIENT CARE NURSING ASSISTANT will f/u. CG was going home to retrieve device following PATIENT CARE NURSING ASSISTANT request. Written Language Yes: Signature Copy Shapes No: Copy Words Check Writing Attending/Orientation/Memory Yes: Orientation No: Delayed Recall W/ Interference Attention/Concentration Memory Congnitive/Linguistic Skills Yes: Categorization No: Thought Organization PHYSICIAN CERTIFICATION: I certify the specified therapy services for Salena Dave are required, authorized, and reviewed every 30 days.
--- NOTE | 2024-04-05 10:50 | CA_ITS ---
APPROVED REPORT EXAM: Comprehensive 2D, Doppler, and color-flow Echocardiogram Security Technician: Hailey Paige CRT Ht: 5 ft 2 in Wt: 199lbs BSA: 1.91 BP: 144/74 mmHg Indications: CVA/TIA, Dyspnea, Hyperlipidemia, Hypertension/HDD Echo Enhancing Agent Indication: Rule out Shunt Agent(s) / Amount(s) Used: Agitated Saline 5 cc Comments: B/S APPEARS POSITIVE 2D Dimensions Left Atrium 2.97 cm LVEF (Chacko's) 49.40 % LVOT 1.72 cm (M/F) 1.5-2.5 LV Volume 121.80 mL LA Volume 47.60 mL LA Volume Index 24.90 mL/m2 (M/F) 16-34 EF AP4 50.70 % EF AP2 46.5 % EF BP 49.4 % GL Strain -15.6 % M-Mode Dimensions RVDd 2.27 cm (0.9-2.6) LVDd 4.90 cm (3.5-5.7) Ao Diam 3.78 cm (2.0-3.7) LVDs 3.57 cm (3.5-5.7) IVSd 1.70 cm (0.6-1.1) PWd 0.74 cm (0.6-1.1) EF (Teich) 52.70% FS 27.10% EDV (Teich) 112.80 mL TAPSE 2.10 (<1.7) ESV (Teich) 53.30 mL LV Diastology E Decel Time 231 (160-240 msec) E/A Ratio 1.59 MED E' 6.1 (>= 7 cm/sec) MED A' 7.80 cm/s E'/MED E' Ratio 11.59 (<= 14) LAT E' 6.8 (>= 10 cm/sec) LAT A' 8.10 cm/s E/LAT E' Ratio 10.40 (<= 14) Aortic Valve AoV Peak Justin. 157.0 (50-130 cm/s) AO Peak GR. 9.90 mmHg Mitral Valve MV E Max Justin. 71.0 (40-130 cm/s) MV A Velocity 45.0 (40-130 cm/s) E/A Ratio 1.59 MV Decel. Time 231 (160-240 ms) Tricuspid Valve TR P. Velocity 251.00 cm/s RAP Estimate 10.00 mmHg RVSP 35.20 mmHg Left Ventricle The left ventricle is normal size. The left ventricular systolic function is normal. The left ventricular ejection fraction is within the normal range. There is normal left ventricular wall thickness. There is normal LV segmental wall motion. The left ventricular diastolic function is normal. LVEF is 55%. Right Ventricle The right ventricle is normal size. The right ventricular systolic function is normal. Atria Left atrium is mildly dilated. The right atrium size is normal. Color Doppler demonstrates evidence of left to right interatrial shunt. Agitated saline this patient demonstrates positive bubble study within 3 cardiac cycles, suggestive of presence of interatrial shunt. Aortic Valve The aortic valve is thickened. There is no aortic valvular stenosis. Trace aortic regurgitation. Mitral Valve The mitral valve leaflets are thickened. No evidence of mitral valve stenosis. Mild mitral regurgitation. The MR jet is eccentric and anteriorly directed. Tricuspid Valve The tricuspid valve leaflets are thin and pliable. Mild tricuspid regurgitation. RVSP is 20-25 mmHg. Pulmonic Valve The pulmonary valve is normal in structure. Trace pulmonic regurgitation. Great Vessels The aortic root is normal in size. The ascending aorta is normal in size. IVC is normal in size and collapses >50% with inspiration. Pericardium There is no pericardial effusion. Other Information Study Quality: Fair Conclusion Normal biventricular systolic size size and systolic function. Mild LA dilation. Mild MR, mild TR. Color Doppler demonstrates left to right interatrial shunt. Agitated saline administration demonstrates positive bubble study within 3 cardiac cycles, suggestive of presence of interatrial shunt. In the setting of prior history of stroke and presence of interatrial shunt, further evaluation for paradoxical embolus is recommended with bilateral lower extremity duplex venous ultrasound, as well as evaluation for interatrial shunt morphology and hemodynamic significance with outpatient GLENN and cardiac MRI (cardiomyopathy protocol) for possible closure. Electronically signed by : Kirstin Verduzco MD 04/05/2024 22:07:40
[2024-04-05 11:49] LABS: POC Glucose,Bedside 182 (70-110)
--- NOTE | 2024-04-05 14:46 | HMH.PTEV ---
Physical Therapy Evaluation Rehab PT IP Evaluation Start: 04/05/24 08:35 Freq: ONCE Status: Active Protocol: Document 04/05/24 14:39 PATRICK (Rec: 04/05/24 14:46 PATRICK [email or web address]) Subjective/History History History Per H&P: This is A 58-year-old female with PMHx of 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 strokelike symptoms with a history of recent CVA with expressive aphasia at baseline . Patient is hemodynamically stable nontoxic-appearing upon arrival, afebrile. Fingerstick blood glucose elevated but not dangerously elevated to explain patient's symptoms. Patient's NIH is 9 (2 for level of consciousness, 2 for sensory right-sided changes, 2 for best language, 2 for dysarthria, 1 for inattention right side on touch). Patient's residual stroke deficit's were expressive aphasia however patient reportedly did not have any significant dysarthria. She is accompanied by family member at bedside. Due to these new symptoms she presents here for continued evaluation. Admitted for further work up and monitoring. Subjective Subjective PLOF per pt and pt's family member report: Lives in a single story home with 6 SILVIANO with BHRs. IND with functional moblity without AD use. Some LOB prior to admission. New diagnosis of cancer in past 12 No months? Rehab PT IP Eval Objective Appearance Patient Behavior Appropriate,Cooperative Patient Orientation Person Difficulty following instructions none Speech Pattern Clear Ambulation Patient Able to Ambulate Yes Ambulation Observation IP General Gait Pattern Observation Wide Based Gait Ambulation Distance (feet) 14 Ambulation Assistive Device None Ambulation Ability Contact Guard/Hand Hold Balance Ability to Arise Able, uses arms to help Sitting Balance Steady, safe Standing Balance Steady, wide stance Transfers Bed Transfer Ability Supervision/Stand by Sit to Stand Bed Transfer Ability Supervision/Stand by Rehab PT IP prob,goals,plan Problems Date of Evaluation: 04/05/24 Rehab Potential Rehab Potential Innapropriate for Skilled Therapy Discharge Plan PT Discharge Plan Pt safe to d/c home when deemed medically necessary d/t current level of mobility, home set-up, and family support. Pt not appropriate for skilled acute care PT at this time d/t pt?s mobility being at baseline. Pt could benefit from OP PT services to improve balance and general strength. Eval Complexity Eval Charge Codes 87413 - Moderate Complexity PHYSICIAN CERTIFICATION: I certify the specified therapy services for Salena Dave are required, authorized, and reviewed every 30 days.
--- NOTE | 2024-04-05 16:10 | P.PN_ITS ---
Subjective *Date: 04/05/24 *Time: 16:10 Interval history: seen at bedside, denied CP, SOB, N/V, she is able to talk in complete sentences Exam Data for Last 24 hours Vital signs and Labs for Last 24 Hours: Temp Pulse Resp BP Pulse Ox O2 Del Method 98.3 F 55 L 20 129/83 95 Room Air 04/05/24 08:00 04/05/24 08:00 04/05/24 08:00 04/05/24 08:00 04/05/24 08:00 04/05/24 15:00 Laboratory Results - last 24 hr 04/04/24 22:40: WBC 4.9, RBC 4.44, Hgb 12.5, Hct 38.7, MCV 87.2, MCH 28.3, MCHC 32.4, RDW 15.3, Plt Count 197, MPV 7.8, Neut % (Auto) 53.3, Lymph % (Auto) 37.1, [place] % (Auto) 5.2, Eos % (Auto) 3.4, Baso % (Auto) 0.9, Neut # (Auto) 2.6, Lymph # (Auto) 1.8, [place] # (Auto) 0.3, Eos # (Auto) 0.2, Baso # (Auto) 0.0, PT 10.5, INR 0.97, APTT 32.2 H, Sodium 140, Potassium 4.1, Chloride 104, Carbon Dioxide 25, Anion Gap 15.1 H, BUN 14, Creatinine 0.90, Estimated GFR 65, Est GFR ( Amer) 78, Glucose 223 H, Calcium 9.3, Total Bilirubin 0.7, AST 29, ALT 26, Alkaline Phosphatase 52, Troponin I < 0.01, Total Protein 6.7, Albumin 4.1, Globulin 2.6, Albumin/Globulin Ratio 1.6, Triglycerides 269 H, Cholesterol 153, LDL Cholesterol Direct 73.96 L, VLDL Cholesterol 54 H, HDL Cholesterol 33 L, Cholesterol/HDL Ratio 4.6 H, Plasma/Serum Alcohol < 10 04/04/24 23:44: Urine Color Yellow, Urine Appearance Clear, Urine pH 5.5, Ur Specific [place] <= 1.005, Urine Protein Negative, Urine Glucose (UA) Negative, Urine Ketones Negative, Urine Blood Negative, Urine Nitrate Negative, Urine Bilirubin Negative, Urine Urobilinogen 0.2, Ur Leukocyte Esterase Negative, Urine RBC None, Urine WBC None, Ur Squamous Epith Cells 3-5, Urine Bacteria None, Urine Opiates Screen Negative, Urine Methadone Screen Negative, Ur Barbituates Screen Negative, Ur Phencyclidine Scrn Negative, Ur Amphetamines Screen Negative, U Benzodiazepines Scrn Negative, Urine Cocaine Screen Negative, U Marijuana (THC) Screen Negative 04/05/24 01:40: Troponin I < 0.01 04/05/24 05:55: WBC 4.7 L, RBC 4.34, Hgb 12.1 L, Hct 38.2, MCV 88.1, MCH 28.0, M CHC 31.8, RDW 15.2, Plt Count 176, MPV 8.4, Neut % (Auto) 55.4, Lymph % (Auto) 35.1, [place] % (Auto) 4.8, Eos % (Auto) 4.0, Baso % (Auto) 0.8, Neut # (Auto) 2.6, Lymph # (Auto) 1.7, [place] # (Auto) 0.2, Eos # (Auto) 0.2, Baso # (Auto) 0.0, Sodium 140, Potassium 3.2 L D, Chloride 106, Carbon Dioxide 25, Anion Gap 12.2, BUN 18 H D, Creatinine 0.90, Estimated Creat Clear 99, Estimated GFR 65, Est GFR ( Amer) 78, Glucose 151 H D, Calcium 9.0, Magnesium 1.7, Total Bilirubin 0.5, AST 26, ALT 23, Alkaline Phosphatase 62, Troponin I < 0.01, Total Protein 6.5, Albumin 3.9, Globulin 2.6, Albumin/Globulin Ratio 1.5 04/05/24 05:56: POC Glucose 157 H 04/05/24 11:43: POC Glucose 182 H I & O for Last 24 hours: Intake & Output 04/02/24 04/03/24 04/04/24 04/05/24 23:59 23:59 23:59 23:59 Intake Total 360 / 360 Output Total 0 / 0 Balance 360 / 360 Weight 90.718 kg 90.718 kg Constitutional Constitutional: no acute distress *Routine HEENT Exam Head: Present normocephalic Eye: Present EOMI and PERRL ENT: Present mucous membranes moist *Routine Neck Exam Neck: Present supple; Absent lymphadenopathy *Routine Respiratory Exam Respiratory: Present CTA bilaterally *Routine Cardiovascular Exam Cardiovascular: Present RRR *Routine Abdominal Exam Abdominal: Present soft and normoactive bowel sounds; Absent tenderness *Routine Extremities Exam Extremities: Absent cyanosis, clubbing or edema *Routine Skin Exam Skin: Present warm; Absent rash *Routine Neurological Exam Neurological: Present alert and oriented X3 Assessment and Plan *Assessment and plan (1) TIA (transient ischemic attack): Status: Acute Category: Medical Code(s): G45.9 - Transient cerebral ischemic attack, unspecified (2) Stroke: Status: Chronic Qualifiers: CVA mechanism: stenosis Precerebral and cerebral artery: posterior cerebral artery Laterality of affected vessel: left Qualified Code(s): I63.532 - Cerebral infarction due to unspecified occlusion or stenosis of left posterior cerebral artery Category: Medical Code(s): I63.9 - Cerebral infarction, unspecified (3) Type 2 diabetes mellitus with diabetic neuropathy: Status: Chronic Qualifiers: 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 truck 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 insulin use: with truck 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 use Qualified Code(s): E11.40 - Type 2 diabetes mellitus with diabetic neuropathy, unspecified; Z79.4 - intermediate manager (current) use of insulin Category: Medical Code(s): E11.40 - Type 2 diabetes mellitus with diabetic neuropathy, unspecified (4) Heart failure: Status: Acute Qualifiers: Heart failure type: unspecified Heart failure chronicity: unspecified Qualified Code(s): I50.9 - Heart failure, unspecified Category: Medical Code(s): I50.9 - Heart failure, unspecified (5) Hypertension: Status: Chronic Qualifiers: Hypertension type: unspecified Qualified Code(s): I10 - Essential (primary) hypertension Category: Medical Code(s): I10 - Essential (primary) hypertension (6) Kidney disease: Status: Acute Category: Medical Code(s): N28.9 - Disorder of kidney and ureter, unspecified (7) Hypothyroidism: Status: Chronic Qualifiers: Hypothyroidism type: unspecified Qualified Code(s): E03.9 - Hypothyroidism, unspecified Category: Medical Code(s): E03.9 - Hypothyroidism, unspecified (8) Seizure: Status: Chronic Category: Medical Code(s): R56.9 - Unspecified convulsions Plan 58-year-old female with PMHx of 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 Patient's NIH is 9 (2 for level of consciousness, 2 for sensory right-sided changes, 2 for best language, 2 for dysarthria, 1 for inattention right side on touch). Patient undergo stroke protocol with CT imaging and hematologic labs. I discussed the case with radiology, no acute findings, no acute large vessel occlusion. Findings discussed extensively with ED. Agreed for admission. At the time of evaluation. patient remains stable, NIHSS is 2. Plan as follow: - TIA/ stroke secondary to left SIGN MAINTENANCE stenosis: MRI negative for Acute CVA patient reports of having cardiac PFO shunt - order echo cardiogram with bubble study CT of head STAT if neuroconditions deteriorate permissive hypertension resume eliquis, statin and aspirin. repeat labs Advance diet as tolerated IDDM with Hyperglicemia: a1c 8.3. optimize BS and diet resume home lantus and Mix insuline accucheck before meals sliding scale others chronic conditions HTN, CHF, Hypothyroidism, Seizure disorder: conditions reviewed,. Home medications regimen reconciled and resume continue monitoring on eliquis. Protonix for GI bleed protection . Full code await Echo with bubble study, PT/OT and speech evals, likely DC tomorrow, may need cardiology eval if positive for PFO on Echo
[2024-04-05 16:40] LABS: POC Glucose,Bedside 265 (70-110)
[2024-04-05] MEDS: PANTOPRAZOLE 40MG VIAL 40 MG IV (20:27)
[2024-04-05] MEDS: SODIUM CHLORIDE 0.9% 10ML VIAL 10 ML IV (20:27)
[2024-04-05] MEDS: TRAZODONE 50MG TABLET 50 MG PO (21:08)
[2024-04-05] MEDS: INSULIN GLARGINE 100 UNITS/ML 3ML FLEXPEN 34 UNIT SQ (21:08)
[2024-04-05] MEDS: CARVEDILOL 12.5MG TABLET 12.5 MG PO (21:08)
[2024-04-05] MEDS: ATORVASTATIN 40MG TABLET 40 MG PO (21:08)
[2024-04-05] MEDS: PREGABALIN 75 MG 75 EACH PO (21:12)
[2024-04-05] MEDS: levETIRAcetam 500 MG TABLET PO (21:12)
[2024-04-05] MEDS: APIXABAN 5MG TABLET 5 MG PO (21:12)
[2024-04-05] MEDS: DONEPEZIL 5MG TAB 5 MG PO (21:12)
[2024-04-05 21:34] LABS: POC Glucose,Bedside 266 (70-110)
[2024-04-06] VITALS: BP 185/97; PULSE 61; RESP 16; TEMP 36.8; O2SAT 94
[2024-04-06 04:00] VITALS: BP 157/94; PULSE 60; RESP 18; TEMP 36.6; O2SAT 94; BMI 35.2
[2024-04-06 06:14] LABS: Basophils % 0.7 % (0.1-2.0); Eosinophils # 0.2 K/mm3 (0.0-0.4); Eosinophils % 5.4 % (0.1-12.0); Hematocrit 38.4 % (37.0-47.0); Hemoglobin 12.3 g/dL (12.2-16.2); Lymphocytes # 1.5 K/mm3 (0.7-4.5); Lymphocytes % 39.1 % (10-50); Mean Corpuscular Volume 87.7 fl (81-99); Mean Platelet Volume 8.3 fl (7.4-10.4); Monocytes # 0.2 K/mm3 (0.1-1.0); Monocytes % 4.9 % (1.7-9.3); Neutrophils # 1.9 K/mm3 (1.8-7.8); Neutrophils % 49.9 % (37.0-80.0); Platelet Count 187 K/mm3 (142-424); Red Blood Count 4.38 M/mm3 (4.20-5.40); Red Cell Distribution Width 15.2 % (11.5-17.5); White Blood Count 3.9 K/mm3 (4.8-10.8)
[2024-04-06 06:20] LABS: Blood Urea Nitrogen 13 mg/dl (7-17); Calcium 8.6 mg/dl (8.4-10.2); Carbon Dioxide 24 mmol/L (22.0-30.0); Chloride 107 mmol/L (98-107); Creatinine Clearance Estimated 111 mL/min (50-200); Estimated Glomerular Filt Rate 74 ml/min (>60); GFR (African American) 89 ML/MIN (>60); Glucose 223 mg/dl (74-100); Sodium 139 mmol/L (136-145)
[2024-04-06 08:00] VITALS: BP 175/99; PULSE 55; RESP 22; TEMP 36.3; O2SAT 97
[2024-04-06] MEDS: PREGABALIN 25MG CAPSULE 75 MG PO (09:44)
[2024-04-06] MEDS: IRBESARTAN 150MG TAB 150 MG PO (09:44)
[2024-04-06] MEDS: CITALOPRAM 10MG TABLET 10 MG PO (09:45)
[2024-04-06] MEDS: ASPIRIN 81MG CHEWABLE TABLET 81 MG PO (09:45)
[2024-04-06] MEDS: CARVEDILOL 12.5MG TABLET 12.5 MG PO (09:45)
[2024-04-06] MEDS: levETIRAcetam 500 MG TABLET PO (09:45)
[2024-04-06] MEDS: LEVOTHYROXINE 50MCG (0.05MG) TAB 50 MCG PO (09:45)
[2024-04-06] MEDS: APIXABAN 5MG TABLET 5 MG PO (09:45)
[2024-04-06] MEDS: humaLOG 100 UNITS/ML 3ML VIAL (SSI) 10 UNIT SQ ×2 (09:47→11:59)
--- NOTE | 2024-04-06 11:03 | CA_ITS ---
FINAL REPORT TECHNIQUE: Bilateral lower extremity venous duplex was performed with augmentation and compression. CLINICAL HISTORY: cva, cardiac shunt FINDINGS: Proper flow is seen throughout the deep venous systems bilaterally. There is no evidence of deep venous thrombosis. IMPRESSION: No evidence of deep venous thrombosis. Reviewed, Interpreted and Dictated by Prakash Galeano MD Transcribed by Donya Reyes Authenticated and [facility]
[2024-04-06 12:04] LABS: POC Glucose,Bedside 259 (70-110)
--- NOTE | 2024-04-06 14:26 | EXP.DC.SUM ---
General Admission date:: 04/05/24 Discharge date: 04/06/24 HPI HPI HPI: This is A 58-year-old female with PMHx of 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 strokelike symptoms with a history of recent CVA with expressive aphasia at baseline. Patient is hemodynamically stable nontoxic-appearing upon arrival, afebrile. Fingerstick blood glucose elevated but not dangerously elevated to explain patient's symptoms. Patient's NIH is 9 (2 for level of consciousness, 2 for sensory right-sided changes, 2 for best language, 2 for dysarthria, 1 for inattention right side on touch). Patient's residual stroke deficit's were expressive aphasia however patient reportedly did not have any significant dysarthria. She is accompanied by family member at bedside. Due to these new symptoms she presents here for continued evaluation. Admitted for further work up and monitoring. Hospital Course Hospital Course Hospital Course: 58-year-old female with PMHx of 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 Patient's NIH is 9 (2 for level of consciousness, 2 for sensory right-sided changes, 2 for best language, 2 for dysarthria, 1 for inattention right side on touch). Patient undergo stroke protocol with CT imaging and hematologic labs. I discussed the case with radiology, no acute findings, no acute large vessel occlusion. Findings discussed extensively with ED. Agreed for admission. At the time of evaluation. patient remains stable, NIHSS is 2. Patient remained stable during admission. Imaging of her head showed no acute issues. Has some chronic left encephalomalacia secondary to previous strokes. Given her hemodynamic stability. Will discharge home with close follow-up with cardiology at to discuss closure of her ASD. 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 Found to be negative for acute CVA. Patient was noted to have extensive encephalomalacia throughout the left temporal and parietal lobes. This is unchanged from prior exams. Marginal gliosis. No evidence of restricted diffusion on diffusion-weighted imaging with her MRI. Has some small scattered foci of abnormal signal in the deep white matter bilaterally. Neurologic exam remained stable during admission. Further workup for etiologies with echo with bubble study showed right to left shunt. Patient found to have PFO. Concerned that this is an underlying etiology for her recurrent TIA/CVA events. Would benefit from evaluation for potential closure. Patient already on goal-directed repeat with Eliquis 5 mg twice daily, aspirin 81 mg daily, Lipitor 40 mg nightly. Will continue this therapy at discharge. -Permissive hypertension maintain during admission. -Tolerating p.o. intake. -Will defer referral to neurology to patient's PCP. Would benefit from establishing with neurologist to assist with further management of chronic neurologic deficits. IDDM with hyperglycemia -A1c 8.3 during admission. Will continue home insulin demented. Continue Lyrica 75 mg twice daily for neuropathy. Hypothyroid: Continue levothyroxine 50 mcg daily See med rec for full details of medicines. No other changes at this time. Total time spent on discharge 32 minutes in counseling, documentation, chart review, and direct care with patient. Exam Data for Last 24 hours Vital signs and Labs for Last 24 Hours: Temp Pulse Resp BP Pulse Ox O2 Del Method 97.4 F L 55 L 22 175/99 H 97 Room Air 04/06/24 08:00 04/06/24 08:00 04/06/24 08:00 04/06/24 08:00 04/06/24 08:00 04/06/24 13:00 Laboratory Results - last 24 hr 04/05/24 16:30: POC Glucose 265 H 04/05/24 20:42: POC Glucose 266 H 04/06/24 05:30: WBC 3.9 L, RBC 4.38, Hgb 12.3, Hct 38.4, MCV 87.7, MCH 28.0, MCHC 32.0, RDW 15.2, Plt Count 187, MPV 8.3, Neut % (Auto) 49.9, Lymph % (Auto) 39.1, [place] % (Auto) 4.9, Eos % (Auto) 5.4, Baso % (Auto) 0.7, Neut # (Auto) 1.9, Lymph # (Auto) 1.5, [place] # (Auto) 0.2, Eos # (Auto) 0.2, Baso # (Auto) 0.0, Sodium 139, Potassium 4.0 D, Chloride 107, Carbon Dioxide 24, Anion Gap 12.0, BUN 13 D, Creatinine 0.80, Estimated Creat Clear 111, Estimated GFR 74, Est GFR ( Amer) 89, Glucose 223 H D, Calcium 8.6 04/06/24 11:57: POC Glucose 259 H I & O for Last 24 hours: Intake & Output 04/03/24 04/04/24 04/05/24 04/06/24 23:59 23:59 23:59 23:59 Intake Total 720 / 720 792 / 792 Output Total 0 / 0 0 / 0 Balance 720 / 720 792 / 792 Weight 90.718 kg 90.718 kg 90.265 kg Constitutional Constitutional: no acute distress, obese, chronically ill appearing and cooperative *Routine HEENT Exam Head: Present normocephalic Eye: Present EOMI and PERRL ENT: Present mucous membranes moist *Routine Neck Exam Neck: Present supple; Absent lymphadenopathy *Routine Respiratory Exam Respiratory: Present CTA bilaterally; Absent rhonchi, wheezes or crackles *Routine Cardiovascular Exam Cardiovascular: Present RRR *Routine Abdominal Exam Abdominal: Present soft and normoactive bowel sounds; Absent tenderness *Routine Rectal Exam Patient deferred: visual exam *Routine Exam Patient deferred: external exam *Routine Extremities Exam Extremities: Absent cyanosis, clubbing or edema *Routine Skin Exam Skin: Present warm; Absent rash *Routine Neurological Exam Neurological: Present alert, oriented X3 and moving all extremities; Absent altered mental status Comments: expressive dysphasia Results Data Completed and Pending Labs on day of discharge: Labs from last 24 hours 04/06/24 04/06/24 04/05/24 11:57 05:30 20:42 WBC 3.9 L RBC 4.38 Hgb 12.3 Hct 38.4 MCV 87.7 MCH 28.0 MCHC 32.0 RDW 15.2 Plt Count 187 MPV 8.3 Neut % (Auto) 49.9 Lymph % (Auto) 39.1 [place] % (Auto) 4.9 Eos % (Auto) 5.4 Baso % (Auto) 0.7 Neut # (Auto) 1.9 Lymph # (Auto) 1.5 [place] # (Auto) 0.2 Eos # (Auto) 0.2 Baso # (Auto) 0.0 Sodium 139 Potassium 4.0 D Chloride 107 Carbon Dioxide 24 Anion Gap 12.0 BUN 13 D Creatinine 0.80 Estimated Creat Clear 111 Estimated GFR 74 Est GFR ( Amer) 89 Glucose 223 H D POC Glucose 259 H 266 H Calcium 8.6 04/05/24 16:30 WBC RBC Hgb Hct MCV MCH MCHC RDW Plt Count MPV Neut % (Auto) Lymph % (Auto) [place] % (Auto) Eos % (Auto) Baso % (Auto) Neut # (Auto) Lymph # (Auto) [place] # (Auto) Eos # (Auto) Baso # (Auto) Sodium Potassium Chloride Carbon Dioxide Anion Gap BUN Creatinine Estimated Creat Clear Estimated GFR Est GFR ( Amer) Glucose POC Glucose 265 H Calcium DS: Diagnosis Discharge Diagnosis (1) TIA (transient ischemic attack): Status: Acute Code(s): G45.9 - Transient cerebral ischemic attack, unspecified (2) Stroke: Status: Chronic Code(s): I63.9 - Cerebral infarction, unspecified Qualifiers: CVA mechanism: stenosis Laterality of affected vessel: left Precerebral and cerebral artery: posterior cerebral artery Qualified Code(s): I63.532 - Cerebral infarction due to unspecified occlusion or stenosis of left posterior cerebral artery (3) Type 2 diabetes mellitus with diabetic neuropathy: Status: Chronic Code(s): E11.40 - Type 2 diabetes mellitus with diabetic neuropathy, unspecified Qualifiers: 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 penitentiary insulin use: with penitentiary use Qualified Code(s): E11.40 - Type 2 diabetes mellitus with diabetic neuropathy, unspecified; Z79.4 - terminal press operator (current) use of insulin (4) Heart failure: Status: Acute Code(s): I50.9 - Heart failure, unspecified Qualifiers: Heart failure chronicity: unspecified Heart failure type: unspecified Qualified Code(s): I50.9 - Heart failure, unspecified (5) Hypertension: Status: Chronic Code(s): I10 - Essential (primary) hypertension Qualifiers: Hypertension type: unspecified Qualified Code(s): I10 - Essential (primary) hypertension (6) Kidney disease: Status: Acute Code(s): N28.9 - Disorder of kidney and ureter, unspecified (7) Hypothyroidism: Status: Chronic Code(s): E03.9 - Hypothyroidism, unspecified Qualifiers: Hypothyroidism type: unspecified Qualified Code(s): E03.9 - Hypothyroidism, unspecified (8) Seizure: Status: Chronic Code(s): R56.9 - Unspecified convulsions Meds Home Medications and Allergies Home Medications Medication Instructions Recorded Confirmed Type blood-glucose sensor (Dexcom G7 #1 ea 03/23/24 04/05/24 Rx Sensor device) donepezil 5 mg tablet 5 mg PO HS 03/31/24 04/05/24 History insulin lispro 100 unit/mL 10 unit SQ TIDWMEAL 03/31/24 04/05/24 History subcutaneous pen pen needle, diabetic 31 gauge x #1,200 ea 03/31/24 04/05/24 History 3/16 (BD Ultra-Fine Mini Pen Needle) polyethylene glycol 3350 17 17 g PO DAILY 03/31/24 04/05/24 History gram/dose oral powder trazodone 50 mg tablet 50 mg PO HS 03/31/24 04/05/24 History acetaminophen 500 mg tablet 500 mg PO Q6HP PRN Mild Pain 04/05/24 04/05/24 History (Scale Score 1-4) apixaban 5 mg tablet (Eliquis) 5 mg PO BID 04/05/24 04/05/24 History aspirin 81 mg chewable tablet 81 tab PO DAILY 04/05/24 04/05/24 History atorvastatin 40 mg tablet 40 mg PO HS 04/05/24 04/05/24 History carvedilol 12.5 mg tablet 12.5 mg PO BID 04/05/24 04/05/24 History ergocalciferol (vitamin D2) 1,250 1,250 mcg PO PHILLIPS 04/05/24 04/05/24 History mcg (50,000 unit) capsule escitalopram oxalate 10 mg tablet 5 mg PO DAILY 04/05/24 04/05/24 History (Lexapro) insulin glargine 100 unit/mL (3 34 unit SQ HS 04/05/24 04/05/24 History mL) subcutaneous pen (Lantus Solostar U-100 Insulin) insulin lispro 100 unit/mL 0 sliding scale dose SQ DIRECTED 04/05/24 04/05/24 History subcutaneous solution levetiracetam 500 mg tablet 500 mg PO BID 04/05/24 04/05/24 History levothyroxine 50 mcg tablet 50 mcg PO DAILY 04/05/24 04/05/24 History (Synthroid) losartan 50 mg tablet 100 mg PO DAILY 04/05/24 04/05/24 History pantoprazole 40 mg tablet,delayed 40 mg PO DAILY 04/05/24 04/05/24 History release pregabalin 75 mg capsule (Lyrica) 75 mg PO BID 04/05/24 04/05/24 History semaglutide 0.25 mg or 0.5 mg (2 0.25 mg SQ WEEKLY 04/05/24 04/05/24 History mg/3 mL) subcutaneous pen injector (Ozempic) New Prescriptions to Start Prescriptions: Allergies Allergy/AdvReac Type Severity Reaction Status Date / Time No Known Allergies Allergy Verified 03/31/24 14:05 Discharge Plan Disposition Patient Disposition: Home, Self-Care Condition: Fair Follow up Plan Follow up with: Margoth Brand PA [Primary Care Provider] - 04/14/24 10:45 am Steve Gonzáles [Referring] - 04/07/24 1:15 pm (Discussed closure of ASD in the setting of strokes) Prescriptions/Medication Reconciliation: Continued (DME) pen needle, diabetic [BD Ultra-Fine Mini Pen Needle] 31 gauge x 3/16 needle See Rx Instructions .ROUTE .MEDSUPPLY Qty: 1200 Rx Instructions: As directed insulin lispro 100 unit/mL insulin pen 10 unit SQ TIDWMEAL polyethylene glycol 3350 17 gram/dose powder 17 g PO DAILY trazodone 50 mg tablet 50 mg PO HS donepezil 5 mg tablet 5 mg PO HS (DME) Dexcom G7 Sensor Device See Rx Instructions .Route Qty: 1 3RF Rx Instructions: As directed acetaminophen 500 mg Tablet 500 mg PO Q6HP PRN (Reason: Mild Pain (Scale Score 1-4)) insulin lispro 100 unit/mL Solution 0 sliding scale dose SQ DIRECTED Rx Instructions: SLIDING SCALE: FOR BLOOD SUGAR LESS THAN 200= 0 UNITS, 200-250=2 UNITS, 251-300=4 UNITS, 301-350=6 UNITS, BLOOD SUGAR GREATER THAN 350= 8 UNITS atorvastatin 40 mg tablet 40 mg PO HS carvedilol 12.5 mg tablet 12.5 mg PO BID Rx Instructions: must administer with a meal/food levetiracetam 500 mg tablet 500 mg PO BID levothyroxine [Synthroid] 50 mcg tablet 50 mcg PO DAILY pantoprazole 40 mg tablet,delayed release (/EC) 40 mg PO DAILY aspirin 81 mg tablet,chewable 81 tab PO DAILY ergocalciferol (vitamin D2) 1,250 mcg (50,000 unit) capsule 1,250 mcg PO PHILLIPS escitalopram oxalate [Lexapro] 10 mg tablet 5 mg PO DAILY pregabalin [Lyrica] 75 mg capsule 75 mg PO BID insulin glargine [Lantus Solostar U-100 Insulin] 100 unit/mL (3 mL) insulin pen 34 unit SQ HS Eliquis 5 mg tablet 5 mg PO BID losartan 50 mg tablet 100 mg PO DAILY Ozempic 0.25 mg or 0.5 mg (2 mg/3 mL) pen injector 0.25 mg SQ WEEKLY Patient Comments: INJECT 0.25 MG SUBCUTANEOUSLY ONCE A WEEK FOR 4 WEEKS THEN increase TO 0.5 MG SUBCUTANEOUSLY ONCE A WEEK UNTIL FOLLOWING UP appointment Problem Reconciliation Problems Reviewed?: Yes Patient Discharge Instructions ACTIVITY: Continue current activity DIET: continue same diet Patient Instructions: DI for Stroke-Ischemic Providers Primary Care Provider: Margoth Brand Admit Provider: Seb Shaw Attending Provider: Seb Shaw
--- NOTE | 2024-04-07 12:41 | CARE MANAGER ---
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 She states that patient is doing well, no concerns voiced at time of call.
== END 2024-04-06 15:37 | disposition home or self-care (01) ==
LOC: ER 23:37 → ICU 23:53
PROVIDERS: Nurse Practitioner Family; Admitting Provider Internal Medicine; Emergency Provider Emergency Medicine; PCP Physician Assistant; Visit Provider Internal Medicine
DX: G45.9 Transient cerebral ischemic attack, unspecified (principal); E11.40 Type 2 diabetes mellitus with diabetic neuropathy, unspecified; Z79.4 Long term (current) use of insulin; I50.9 Heart failure, unspecified; I63.532 Cerebral infarction due to unspecified occlusion or stenosis of left posterior cerebral artery; E03.9 Hypothyroidism, unspecified; R47.81 Slurred speech; Z79.01 Long term (current) use of anticoagulants; F32.A Depression, unspecified; I11.0 Hypertensive heart disease with heart failure; G40.909 Epilepsy, unspecified, not intractable, without status epilepticus; E11.65 Type 2 diabetes mellitus with hyperglycemia; R29.709 NIHSS score 9; I69.320 Aphasia following cerebral infarction; I69.351 Hemiplegia and hemiparesis following cerebral infarction affecting right dominant side; M79.89 Other specified soft tissue disorders
CPT/HCPCS: 36415; 70450; 70496; 70498; 70551; 80048; 80053; 80061; 80307; 80320; 81001; 82962; 83735; 84484; 85025; 85610; 85730; 92523; 93005; 93306; 93970; 97162; 97165; 99291; G0378; G0480; Q9967

== ENCOUNTER 2024-05-10 11:52 | Outpatient (CLI) | payer MEDICARE, OTHER, SELFPAY | END 2024-05-10 23:59 | disposition home or self-care (01) | LOC: LAB.DROPOF 05-11 11:52 | PROVIDERS: PCP Physician Assistant; Visit Provider Physician Assistant | DX: N39.0 Urinary tract infection, site not specified (principal) | CPT/HCPCS: 87086 ==

== ENCOUNTER 2024-06-24 14:04 | Outpatient (CLI) | payer MEDICARE, OTHER, SELFPAY ==
[2024-06-24 13:30] LABS: Microscopic, Urine URINE MICROSCOPIC (MICROSCOPIC)
[2024-06-24 13:42] LABS: Appearance,Urine CLEAR (Clear); Bilirubin,Urine Negative (Negative); Blood, Urine Negative (Negative); Color,Urine YELLOW (Yellow); Glucose,Urine (UA) Negative (Negative); Ketones,Urine Negative (Negative); Leukocyte Esterase,Urine 1+ (Negative); Nitrate,Urine Negative (Negative); Protein,Urine Negative (Negative); Specific Gravity, Urine 1.025 (1.005-1.030)
[2024-06-24 14:00] LABS: Creatinine,Urine Random 148 mg/dL (Not Estab.); Total Protein,Urine Random < 5.0 mg/dL (0.0-12.0)
[2024-06-24 14:02] LABS: Microalbumin < 6.000 mg/L (0-16.7)
[2024-06-24 14:08] LABS: Bacteria,Urine 1+ /lpf
[2024-06-24 14:09] LABS: Basophils # 0.1 K/mm3 (0-0.2); Basophils % 0.7 % (0.1-2.0); Eosinophils # 0.1 K/mm3 (0.0-0.4); Eosinophils % 2.2 % (0.1-12.0); Hematocrit 43.9 % (37.0-47.0); Hemoglobin 14.5 g/dL (12.2-16.2); Lymphocytes # 1.6 K/mm3 (0.7-4.5); Lymphocytes % 24.7 % (10-50); Mean Corpuscular HGB Conc 32.9 g/dL (31.8-35.4); Mean Corpuscular Hemoglobin 27.9 pg (27.0-31.2); Mean Corpuscular Volume 84.7 fl (81-99); Mean Platelet Volume 8.2 fl (7.4-10.4); Monocytes # 0.2 K/mm3 (0.1-1.0); Monocytes % 3.8 % (1.7-9.3); Neutrophils # 4.4 K/mm3 (1.8-7.8); Neutrophils % 68.7 % (37.0-80.0); Platelet Count 240 K/mm3 (142-424); Red Blood Count 5.18 M/mm3 (4.20-5.40); Red Cell Distribution Width 15.1 % (11.5-17.5); White Blood Count 6.4 K/mm3 (4.8-10.8)
[2024-06-24 14:28] LABS: Hemoglobin A1C 8.1 % (4.0-6.0)
[2024-06-24 14:40] LABS: Alanine Aminotransferase 17 U/L (12-78); Albumin Level 4.8 g/dl (3.5-5.0); Albumin/Globulin Ratio 1.5 (1.1-1.8); Alkaline Phosphatase 74 U/L (38-126); Anion Gap 15.1 mEq/L (5-15); Aspartate Amino Transferase 21 U/L (14-36); Bilirubin,Total 0.8 mg/dl (0.2-1.3); Blood Urea Nitrogen 17 mg/dl (7-17); Calcium 9.9 mg/dl (8.4-10.2); Carbon Dioxide 29 mmol/L (22.0-30.0); Chloride 103 mmol/L (98-107); Chol/HDL Ratio 5.1 (1-3.5); Cholesterol 211 mg/dl (140-200); Estimated Glomerular Filt Rate 64 ml/min (>60); GFR (African American) 78 ML/MIN (>60); Globulin 3.1 g/dL (1.3-3.2); Glucose 113 mg/dl (74-100); HDL Cholesterol 41 mg/dl (40-60); Potassium 4.1 mmoL/L (3.5-5.1); Sodium 143 mmol/L (136-145); Total Protein,Serum 7.9 g/dl (6.3-8.2); Triglycerides 315 mg/dl (30-150); VLDL Cholesterol 63 mg/dL (0-40)
[2024-06-24 14:57] LABS: 25-OH Vitamin D, Total 68.1 ng/mL (30-100)
[2024-06-24 15:11] LABS: Thyroid Stimulating Hormone 2.79 uIU/mL (0.465-4.68)
[2024-06-24 15:47] LABS: Vitamin B12 443 pg/mL (239-931)
[2024-06-24 16:26] LABS: Iron 70 ug/dL (37-170)
[2024-06-24 16:36] LABS: Total Iron Binding Capacity 350 ug/dL (265-497)
[2024-06-24 16:45] LABS: Free T4 (Free Thyroxine) 1.11 ng/dl (0.78-2.19)
[2024-06-24 17:03] LABS: Ferritin 53.7 ng/ml (11.1-264)
[2024-06-25 11:47] LABS: HIV (1&2) Antibody Rapid NONREACTIVE (NONREACTIVE)
[2024-06-26 06:13] LABS: HCV Ab Non Reactive (Non Reactive)
[2024-06-26 11:12] LABS: Rapid Plasma Reagin Ab Titer Non Reactive titer (NonRea<1:1)
[2024-06-28 07:49] LABS: Neisseria gonorrhoeae, NAA Negative (Negative)
== END 2024-06-24 23:59 | disposition home or self-care (01) ==
LOC: LAB.DROPOF 14:04
PROVIDERS: PCP Nurse Practitioner Family; Visit Provider Nurse Practitioner Family
DX: R53.83 Other fatigue (principal); E03.9 Hypothyroidism, unspecified; E55.9 Vitamin D deficiency, unspecified; E11.40 Type 2 diabetes mellitus with diabetic neuropathy, unspecified; Z79.4 Long term (current) use of insulin; N28.9 Disorder of kidney and ureter, unspecified; I10 Essential (primary) hypertension; Z11.3 Encounter for screening for infections with a predominantly sexual mode of transmission; Z11.4 Encounter for screening for human immunodeficiency virus [HIV]; R56.9 Unspecified convulsions; Z11.59 Encounter for screening for other viral diseases; N39.0 Urinary tract infection, site not specified; Z72.89 Other problems related to lifestyle
CPT/HCPCS: 80053; 80061; 80177; 81001; 82043; 82306; 82570; 82607; 82728; 82746; 83036; 83540; 83550; 84156; 84439; 84443; 85025; 86593; 87086; 87491; 87591

== ENCOUNTER 2024-07-16 09:05 | Outpatient (CLI) | payer MEDICARE, OTHER, SELFPAY ==
--- NOTE | 2024-07-16 09:05 | XR_ITS ---
FINAL REPORT TECHNIQUE: Bone densitometry calculations of the lumbar spine and left hip were obtained. CLINICAL HISTORY: screening osteoporosis COMPARISON: None FINDINGS: Using L1-4, the bone mineral density of the spine is 1.072 g/cm2, corresponding to T-score of 0.2. Using the left hip, the bone mineral density of the femoral neck is 0.868 g/cm2, corresponding to a T-score of 0.2. NOTE: T-score: Standard deviation compared with peak bone mass of young adult mean. *Following the recommendations of the International Society of Bone densitometry, classification of hip BMD is based on the lower of two T-scores; total hip or femoral neck. IMPRESSION: Normal bone mineral density of the lumbar spine and left hip. Reviewed, Interpreted and Dictated by Prakash Galeano MD Transcribed by Kait Guillen Authenticated and [facility]
== END 2024-07-16 23:59 | disposition home or self-care (01) ==
LOC: RAD 09:05
PROVIDERS: PCP Nurse Practitioner Family; Visit Provider Nurse Practitioner Family
DX: Z90.710 Acquired absence of both cervix and uterus (principal); E89.40 Asymptomatic postprocedural ovarian failure
CPT/HCPCS: 77080

== ENCOUNTER 2024-07-21 14:24 | Outpatient (CLI) | payer MEDICARE, OTHER, SELFPAY ==
--- NOTE | 2024-07-21 14:25 | CA_ITS ---
APPROVED REPORT EXAM: Limited 2D Echocardiogram Process Chemist: Rachele Burnette, RCS, RVS Ht: 5 ft 3 in Wt: 186lbs BSA: 1.88 BP: 139/84 mmHg Indications: Sp PFO closure, HF, TIA/Stroke, Afib Echo Enhancing Agent Comments: No right to left shunt with 3 phase bubble contrast protocol Other Information Study Quality: Fair Conclusion This is a limited TTE to evaluate for interatrial shunt in the setting of known PFO closure. The left ventricle is normal in size. There is normal LV wall thickness. There is normal LV systolic function. LVEF is 55%. A device is noted and well-seated in the interatrial septum, consistent with known history of closure device placement. Color Doppler demonstrates no evidence of residual interatrial shunt. Agitated saline administration demonstrates no evidence of migration of bubbles from the RA into the LA, consistent with absence of residual shunt. Electronically signed by : Kirstin Verduzco MD 07/22/2024 11:53:03
== END 2024-07-21 23:59 | disposition home or self-care (01) ==
LOC: RT 14:25
PROVIDERS: PCP Nurse Practitioner Family; Visit Provider Internal Medicine
DX: Z98.890 Other specified postprocedural states (principal); Z87.74 Personal history of (corrected) congenital malformations of heart and circulatory system
CPT/HCPCS: 93308

== ENCOUNTER 2024-08-27 13:40 | Outpatient (CLI) | payer MEDICARE, OTHER, SELFPAY | END 2024-08-27 23:59 | disposition home or self-care (01) | LOC: LAB.DROPOF 08-28 10:27 | PROVIDERS: PCP Student in an Organized Health Care Education/Training Program; Visit Provider Student in an Organized Health Care Education/Training Program | DX: R09.81 Nasal congestion (principal); J30.9 Allergic rhinitis, unspecified; H10.32 Unspecified acute conjunctivitis, left eye | CPT/HCPCS: 87635 ==

== ENCOUNTER 2024-08-31 10:41 | Emergency (ER) | payer MEDICARE, OTHER, SELFPAY ==
[2024-08-31 10:41] VITALS: BP 146/100; PULSE 80; RESP 18; TEMP 36.9; O2SAT 95; BMI 28.2
--- NOTE | 2024-08-31 10:43 | ECG_ITS ---
APPROVED REPORT Exam: Resting ECG HR:81 bpm ECG Measurements Heart Rate 81 AXES GA 176 P 33 QRSd 95 QRS -26 QT 379 T 63 QTc 416 Conclusion SINUS RHYTHM BORDERLINE LEFT AXIS DEVIATION [QRS AXIS < -20] NONSPECIFIC T-WAVE ABNORMALITY BORDERLINE ECG UNCONFIRMED REPORT Electronically signed by : Malik Barba, 08/31/2024 14:53:17
--- NOTE | 2024-08-31 10:44 | PC.NURSE ---
stroke protocol called to radiology at 1757
--- NOTE | 2024-08-31 10:46 | PC.NURSE ---
pt to CT via stretcher with technical translator
--- NOTE | 2024-08-31 10:47 | PC.NURSE ---
Elina Salmon RN and Vitaly Montoya RN also with patient to CT
--- NOTE | 2024-08-31 11:08 | CT_ITS ---
FINAL REPORT TECHNIQUE: Axial imaging of the head was obtained without contrast. This study was performed with techniques to keep radiation doses as low as reasonably achievable, (ALARA). Individualized dose reduction techniques using automated exposure control or adjustment of mA and/or kV according to the patient's size were employed. CLINICAL HISTORY: STROKE PROTOCOL COMPARISON: 04/05/2024 FINDINGS: The ventricles are enlarged. There is extensive encephalomalacia in the left middle cerebral artery territory. There is ex vacuo dilatation of the left temporal and occipital horns of the lateral ventricles, and to a lesser extent the left frontal horn as well. There is dystrophic calcification in the left temporal occipital region that was also present on the prior CT of March. There is no evidence of hemorrhage. No masses are identified. No extra-axial fluid is seen. There is complete opacification of the left maxillary sinus, with marked soft tissue thickening in the ethmoid and sphenoid sinuses, the frontal sinuses, and the right maxillary sinus consistent with extensive pansinusitis. This is slightly more prominent than noted on the prior CT. IMPRESSION: Extensive encephalomalacia in the left middle cerebral artery territory, also noted on the prior CT of March 2024 and unchanged since that time. Extensive sinusitis is again noted, consistent with chronic pansinusitis. No evidence of hemorrhage, mass effect, or midline shift is seen. Reviewed, Interpreted and Dictated by Prakash Galeano MD Transcribed by Kait Guillen Authenticated and [facility]
--- NOTE | 2024-08-31 11:08 | CT_ITS ---
FINAL REPORT TECHNIQUE: Following the administration of intravenous contrast, helically acquired axial multidetector CT images were obtained from the vertex to the aortic arch. Multiplanar, MIP and 3-D reconstructions were performed. This study was performed with techniques to keep radiation doses as low as reasonably achievable, (ALARA). Individualized dose reduction techniques using automated exposure control or adjustment of mA and/or kV according to the patient's size were employed. CLINICAL HISTORY: RIGHT SIDED WEAKNESS, HX OF STROKE COMPARISON: 04/05/2024 FINDINGS: The origins of the great vessels are unremarkable. There is an aberrant right subclavian artery. RIGHT CAROTID: No significant stenosis is seen of the cervical common or internal carotid artery. The cervical portion of the right internal carotid artery is tortuous. LEFT CAROTID: No significant stenosis seen of the cervical common or internal carotid artery. The cervical portion of the left internal carotid artery is tortuous. VERTEBRALS: The vertebral arteries are patent. No significant stenosis is present. The left vertebral artery is dominant. IMPRESSION: No significant arterial abnormality. Reviewed, Interpreted and Dictated by Prakash Galeano MD Transcribed by Kait Guillen Authenticated and [facility]
--- NOTE | 2024-08-31 11:08 | CT_ITS ---
FINAL REPORT TECHNIQUE: thin section axial CT with and without IV contrast supplemented with multiplanar 3-D reconstruction of the head. This study was performed with techniques to keep radiation doses as low as reasonably achievable, (ALARA)individualized dose reduction techniques using automated exposure control or adjustment of mA and/or kV according to the patient's size were employed. CLINICAL HISTORY: RIGHT SIDED WEAKNESS, HX OF STROKE COMPARISON: 04/05/2024 FINDINGS: CTA INTRACRANIAL: The intracranial portions of the vertebral arteries, basilar artery, and internal carotid arteries appear unremarkable and stable in appearance. There is irregularity of the distal left middle cerebral artery, which was also seen on the prior CTA of 04/05/2024 and is unchanged since that time. There are also focal areas of stenosis in the posterior cerebral artery, just distal to its origin and more distally in the P3 segment, also unchanged since the prior exam. No new intracranial vascular abnormalities are identified. No evidence of intracranial hemorrhage, aneurysm, or other intracranial vascular abnormality is identified. IMPRESSION: Multifocal areas of irregularity are noted in the left middle cerebral artery, and the left posterior cerebral artery, which are unchanged since the prior CT of 04/05/2024. Reviewed, Interpreted and Dictated by Prakash Galeano MD Transcribed by Kait Guillen Authenticated and [facility]
--- NOTE | 2024-08-31 11:09 | XR_ITS ---
FINAL REPORT CLINICAL HISTORY: STROKE PROTOCOL FINDINGS: A single view of the chest was obtained. The heart is normal in size. The mediastinum is unremarkable. The lungs are underinflated. There is scarring or atelectasis at the lung bases. There is no pleural effusion. There is no pneumothorax. There is no acute osseous abnormality. IMPRESSION: Underinflation with scarring or atelectasis at the lung bases. Reviewed, Interpreted and Dictated by Prakash Galeano MD Transcribed by Rissa Gutierrez Authenticated and . [facility]
[2024-08-31 11:23] VITALS: BP 175/100; PULSE 78; O2SAT 94
--- NOTE | 2024-08-31 11:24 | PC.NURSE ---
Dr. Barba at [facility] for pt eval
--- NOTE | 2024-08-31 11:33 | PC.NURSE ---
Called [facility] to speak with Stroke Team; Dr. Barba speaking with them now
[2024-08-31 11:39] LABS: Basophils # 0.1 K/mm3 (0-0.2); Basophils % 1.1 % (0.1-2.0); Eosinophils # 0.2 K/mm3 (0.0-0.4); Eosinophils % 2.7 % (0.1-12.0); Hematocrit 40.1 % (37.0-47.0); Hemoglobin 13.8 g/dL (12.2-16.2); Lymphocytes # 1.6 K/mm3 (0.7-4.5); Lymphocytes % 28.1 % (10-50); Mean Corpuscular HGB Conc 34.4 g/dL (31.8-35.4); Mean Corpuscular Volume 81.6 fl (81-99); Mean Platelet Volume 7.9 fl (7.4-10.4); Monocytes # 0.3 K/mm3 (0.1-1.0); Monocytes % 5.8 % (1.7-9.3); Neutrophils # 3.6 K/mm3 (1.8-7.8); Neutrophils % 62.2 % (37.0-80.0); Platelet Count 221 K/mm3 (142-424); Red Blood Count 4.92 M/mm3 (4.20-5.40); Red Cell Distribution Width 15.1 % (11.5-17.5); White Blood Count 5.8 K/mm3 (4.8-10.8)
--- NOTE | 2024-08-31 11:40 | HMH.EDGENADL ---
Discharge Plan Disposition Patient Disposition: Xfer Other Chief Complaint: Neuro Symptoms/Deficit Prescriptions Prescriptions: No Action tizanidine 2 mg capsule 2 mg PO BID PRN (Reason: muscle spasticity) Qty: 7 0RF (DME) pen needle, diabetic [BD Ultra-Fine Mini Pen Needle] 31 gauge x 3/16 needle See Rx Instructions .ROUTE .MEDSUPPLY Qty: 1200 Rx Instructions: As directed (DME) Dexcom G7 Sensor Device See Rx Instructions .Route Qty: 1 3RF Rx Instructions: As directed (DME) pen needle, diabetic [BD Ultra-Fine Lachelle Pen Needle] 32 gauge x 5/32 needle See Rx Instructions .ROUTE .MEDSUPPLY Qty: 1200 Rx Instructions: As directed acetaminophen 500 mg tablet 500 mg PO Q6HP PRN (Reason: Mild Pain (Scale Score 1-4)) Qty: 120 0RF Eliquis 2.5 mg tablet 2.5 mg PO BID Qty: 180 3RF aspirin 81 mg tablet,chewable 81 tab PO DAILY Qty: 90 3RF atorvastatin 80 mg tablet 80 mg PO HS Qty: 90 3RF carvedilol 12.5 mg tablet 12.5 mg PO BID Qty: 180 3RF Rx Instructions: must administer with a meal/food donepezil 5 mg tablet 5 mg PO HS Qty: 90 3RF cholecalciferol (vitamin D3) 50 mcg (2,000 unit) capsule 50 mcg PO DAILY Qty: 90 3RF insulin glargine [Lantus Solostar U-100 Insulin] 100 unit/mL (3 mL) insulin pen 34 unit SQ HS Qty: 15 11RF insulin lispro 100 unit/mL insulin pen 10 unit SQ TIDWMEAL Qty: 15 5RF levetiracetam 500 mg tablet 500 mg PO BID Qty: 180 3RF losartan 100 mg tablet 100 mg PO DAILY Qty: 90 3RF Ozempic 2 mg/dose (8 mg/3 mL) pen injector 2 mg SQ WEEKLY Qty: 3 11RF trazodone 50 mg tablet 50 mg PO HS Qty: 90 3RF polymyxin B sulf-trimethoprim 10,000 unit- 1 mg/mL drops 1 drp ophthalmic (eye) Q3H 7 Days Qty: 10 0RF Rx Instructions: while awake; do not exceed 6 doses in 24 hours fluticasone propionate [Allergy Relief (fluticasone)] 50 mcg/actuation spray,suspension 1 spray intranasal DAILY Qty: 16 2RF Rx Instructions: administer into each nostril Referrals Follow up/Referrals: Provider,Referral, MD [Primary Care Provider] - See instructions Clinical Impressions Clinical Impression: Aphasia, Tremor Print Language Print Language: [place] Discharge ED Provider: Armen Barab General Adult HPI General Chief complaint: Neuro Symptoms/Deficit Stated complaint: Poss Stroke Time Seen by Provider: 08/31/24 11:01 Mode of Arrival: Ambulatory Source of Information: Patient, Relative and Medical Record Limitations: Altered Mental Status Description of Symptoms (Recalled from ER Triage Doc. by RN): c/o increased right side weakness with increased confusion. Family states that she got a call from the daughter stating that pt was more confused and having right side weakness, pt has hx of stroke x2 with deficits to the right side. Unsure what the lkn was, family states she woke up like this. History of Present Illness HPI narrative: Patient is a 59-year-old female with a history of multiple strokes presenting today with concern for strokelike symptoms send is accompanied by family member. She has a history of a left cerebral stroke in 2020 and a cerebellar stroke in 2023. She has atrial fibrillation and is on Eliquis. She presents today with difficulty speaking she has a history of expressive aphasia but this is significantly worse according to her family member she also complains of right upper extremity weakness and some tremors. She has been worked up for seizures in the past and is on levetiracetam for the seizures. Last known normal was yesterday evening Related Data Home Medications ?Medication ?Instructions ?Recorded ?Confirmed pen needle, diabetic 31 gauge x #1,200 ea 03/31/24 08/27/2401/30 (BD Ultra-Fine Mini Pen Needle) pen needle, diabetic 32 gauge x #1,200 ea 05/10/24 08/27/24 (BD Ultra-Fine Lachelle Pen Needle) Previous Rx's ?Medication ?Instructions ?Recorded blood-glucose sensor (Dexcom G7 #1 ea 03/23/24 Sensor device) acetaminophen 500 mg tablet 500 mg PO Q6HP PRN Mild Pain 05/10/24 (Scale Score 1-4) #120 tabs tizanidine 2 mg capsule 2 mg PO BID PRN muscle spasticity 05/24/24 #7 caps apixaban 2.5 mg tablet (Eliquis) 2.5 mg PO BID #180 tabs 08/16/24 aspirin 81 mg chewable tablet 81 tab PO DAILY #90 tabs 08/16/24 atorvastatin 80 mg tablet 80 mg PO HS #90 tabs 08/16/24 carvedilol 12.5 mg tablet 12.5 mg PO BID #180 tabs 08/16/24 cholecalciferol (vitamin D3) 50 50 mcg PO DAILY #90 caps 08/16/24 mcg (2,000 unit) capsule donepezil 5 mg tablet 5 mg PO HS #90 tabs 08/16/24 insulin glargine 100 unit/mL (3 34 unit (0.34 mL) SQ HS #15 mL 08/16/24 mL) subcutaneous pen (Lantus Solostar U-100 Insulin) insulin lispro 100 unit/mL 10 unit (0.1 mL) SQ TIDWMEAL #15 mL 08/16/24 subcutaneous pen levetiracetam 500 mg tablet 500 mg PO BID #180 tabs 08/16/24 losartan 100 mg tablet 100 mg PO DAILY #90 tabs 08/16/24 semaglutide 2 mg/dose (8 mg/3 mL) 2 mg (0.75 mL) SQ WEEKLY #3 mL 08/16/24 subcutaneous pen injector (Ozempic) trazodone 50 mg tablet 50 mg PO HS #90 tabs 08/16/24 fluticasone propionate 50 1 spray intranasal DAILY #16 grams 08/27/24 mcg/actuation nasal spray,suspension (Allergy Relief (fluticasone)) polymyxin B sulfate 10,000 1 drp ophthalmic (eye) Q3H 7 days 08/27/24 unit-trimethoprim 1 mg/mL eye drops #10 mL Allergies Allergy/AdvReac Type Severity Reaction Status Date / Time No Known Allergies Allergy Verified 08/27/24 13:34 [facility] Disclaimer: The information contained in this section may have been updated after the patient was seen, as this information can be updated by other users. Medical History Vaginitis PFO (patent foramen ovale) Surgically repaired at on 04/13/2024 History of CVA with residual deficit A-fib Rectal bleed Expressive aphasia Terra had a stroke in 2020 and currently deals with Expressive Aphasia where she has difficulty finding the correct word that will communicate her meaning in a conversation. Hypothyroidism History of total thyroidectomy Seizure Dysphagia Vaginal discharge Type 2 diabetes mellitus with diabetic neuropathy Stroke TIA (transient ischemic attack) Urinary Incontinence Dysphagia Esophageal foreign body History of multiple strokes Generalized weakness Depression Urinary leakage Persistent complex bereavement disorder Salena reported that she lost her mother to Alzheimer's Disease when Salena was younger, she lost her father 3 yrs ago, she lost her about 5 or 6 yrs ago, and there has been some estrangement between herself and her older children. Adjustment disorder with depressed mood Salena reported dealing with Depression and Anger after her stroke because she struggles with doing things the same way as before. She claims that she gets very frustrated due to all of the changes and limitations in her life since the stroke. History of stroke Heart failure Kidney disease 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, type 2 Hypertension Surgical History S/P patent foramen ovale closure Hx of total thyroidectomy Hx of hysterectomy History of colonoscopy 11/07/2023, repeat in 3 years (10/2026) Family History Father Heart disease Heart attack Mother Stroke Alzheimer's dementia Social History Smoking Status: Unknown if ever smoked alcohol intake: never substance use type: denies use current occupational status: unemployed and disabled Travel in the last 8 weeks: None number of children: 4 Other Medical History Have you received the Flu Vaccine for this season: No Have you received the Pneumonia Vaccine: No ROS Obtained: Yes All systems reviewed & no additional complaints except as documented Physical Exam General General appearance: alert and in no apparent distress Respiratory Respiratory exam: Present normal lung sounds bilaterally Cardiovascular Cardiovascular exam: Present regular rate Neurological Exam Neurological exam: Present motor sensory deficit (Patient has right upper extremity tremor that is extinguishable with distraction) and other (Patient is alert she has a receptive and expressive aphasia however while in the CT scan she was able to put together a cohesive statement asking our nurse if she should take out her bellybutton ring but otherwise is not able to understand or express herself to me) Medical Decision Making Medical Records Screening: Per USPSTF and CDC recommendations, given the prevalence of disease in our region, it is our hospital?s policy to screen for HIV and viral Hepatitis for all patients aged 18 and over and those with ongoing risk factors. Chandan Inquiry Pt receiving controlled substance: No Vital Signs: 08/31/24 10:41 Temperature 98.4 F Temperature Source Oral Pulse Rate [Left Radial] 80 Respiratory Rate 18 Blood Pressure [Right Arm] 146/100 H Blood Pressure Mean [Right Arm] 115 Blood Pressure Source [Right Arm] Automatic Cuff Blood Pressure Position [Right Arm] Sitting 02 Sat by Pulse Oximetry 95 Oxygen Delivery Method Room Air Lab Data Lab Results 08/31/24 10:45: WBC 5.8, RBC 4.92, Hgb 13.8, Hct 40.1, MCV 81.6, MCH 28.0, MCHC 34.4, RDW 15.1, Plt Count 221, MPV 7.9, Neut % (Auto) 62.2, Lymph % (Auto) 28.1, Tyrrell % (Auto) 5.8, Eos % (Auto) 2.7, Baso % (Auto) 1.1, Neut # (Auto) 3.6, Lymph # (Auto) 1.6, Tyrrell # (Auto) 0.3, Eos # (Auto) 0.2, Baso # (Auto) 0.1 08/31/24 10:45 Orders (Tests/Meds): ED MEDICATIONS Generic Name Dose Route Start Last Admin Trade Name Freq PRN Reason Stop Dose Admin Lactated Ringer's 1,000 mls @ 999 mls/hr 08/31/24 11:45 Lactated Ringer's 1000 Ml Bag IV 08/31/24 12:45 .Q1H1M MARII Discontinued Medications Generic Name Dose Route Start Last Admin Trade Name Freq PRN Reason Stop Dose Admin Iopamidol 80 ml 08/31/24 11:23 Iopamidol-370 (76%);100ml Bottle IV 08/31/24 11:24 ONCE ONE Sodium Chloride 10 ml 08/31/24 11:23 Sodium Chloride 0.9% 10ml Syr (Rad Only) IV 08/31/24 11:24 ONCE ONE Sodium Chloride 50 ml 08/31/24 11:23 0.9 % Sodium Chloride 50 Ml Vial IV 08/31/24 11:24 ONCE ONE ORDERS Category Date Time Status CT angio head Stat Cat Scan 08/31/24 11:[address] angio neck Stat Cat Scan 08/31/24 11:[address] head/brain wo con Stat Cat Scan 08/31/24 11:08 Taken XR chest portable Stat Exams 08/31/24 11:09 Taken CBC w/Auto Diff [Complete Blood Count Auto Diff] Stat Lab 08/31/24 10:45 Completed CMP [Comprehensive Metabolic Panel] Stat Lab 08/31/24 10:45 Received HIV (1&2) Antibody Rapid Stat Lab 08/31/24 11:39 Ordered Hep C Ab with Reflex to RNA Stat Lab 08/31/24 11:39 Ordered PT/PTT Stat Lab 08/31/24 10:45 Received Trop I [Troponin I] Stat Lab 08/31/24 10:45 Received Troponin I Q3H Lab 08/31/24 14:45 Ordered Troponin I Q3H Lab 08/31/24 17:45 Ordered Medical Decision Narrative: 59-year-old above history and physical. She was stroke alerted CT scan to perform which I personally interpreted which show old infarcts but no hemorrhage. Awaiting CT angio reads. Given the fact that she has a receptive and expressive aphasia I am objectively giving her an NIH stroke scale of 2. She has extinguishable tremor right upper extremity which her family states is abnormal for her. She does have a history of seizures and certainly has a possibility of having a focal simple partial seizure but I think is unlikely at the moment. I suspect the majority of this is anxiety given the fact that she was able to give good articulation to us while in the CT scanner however cannot rule out a stroke. I am holding off on any type of tPA or thrombolysis. For many reasons including the fact that she is on blood thinners but also I believe that this is not definitively a ischemic stroke. Cannot however rule out an ischemic stroke therefore she will need neurology to work her up further for possible seizures and/or ischemic stroke given her history. I spoke with materials handling coordinator Jimmy who accepted the patient under Dr. Kennedy they are currently awaiting bed placement. Critical Care Critical Care Time Critical Care Time: Yes Attestation: On 08/31/24, the high probability of a clinically significant, sudden or life threatening deterioration of the following system(s) required my full and direct attention, intervention and personal management. The time I documented below is in addition to time spent performing reported procedures but includes the following listed in this critical care notation. Total Time Total Critical Care Time: 35
--- NOTE | 2024-08-31 11:40 | PC.NURSE ---
Dr Kennedy at [facility] accepted this pt. We are waiting on them to callback for a bed assignment
[2024-08-31 11:43] LABS: Albumin Level 4.4 g/dl (3.5-5.0); Chloride 107 mmol/L (98-107); Potassium 4.1 mmoL/L (3.5-5.1); Sodium 140 mmol/L (136-145)
[2024-08-31 11:46] LABS: Alanine Aminotransferase 25 U/L (12-78); Albumin/Globulin Ratio 1.4 (1.1-1.8); Alkaline Phosphatase 73 U/L (38-126); Anion Gap 11.1 mEq/L (5-15); Aspartate Amino Transferase 24 U/L (14-36); Bilirubin,Total 0.8 mg/dl (0.2-1.3); Blood Urea Nitrogen 12 mg/dl (7-17); Carbon Dioxide 26 mmol/L (22.0-30.0); Creatinine Clearance Estimated 85 mL/min (50-200); Estimated Glomerular Filt Rate 64 ml/min (>60); GFR (African American) 78 ML/MIN (>60); Globulin 3.1 g/dL (1.3-3.2); Total Protein,Serum 7.5 g/dl (6.3-8.2)
[2024-08-31 11:47] LABS: Calcium 9.5 mg/dl (8.4-10.2); Glucose 147 mg/dl (74-100)
[2024-08-31 11:57] LABS: Activated Partial Thrombo Time 31.3 seconds (22.8-30.6); Prothrombin Time 10.2 seconds (10.1-12.5)
[2024-08-31 12:00] VITALS: BP 158/92; PULSE 75; O2SAT 95
[2024-08-31 12:02] LABS: Troponin I < 0.01 ng/ml (0.00-0.034)
[2024-08-31 12:31] VITALS: BP 153/94; PULSE 78; O2SAT 97
--- NOTE | 2024-08-31 12:52 | PC.NURSE ---
Pt did have an episode of emesis, family states they walked into the room and she leaned over the rail and threw up . Pt does seem aggitated, but states she is better now and that no one understands her. Family states she has been talking like this and has aphasia since 2020. Pt was offered Zofran but she is denying it at this time and states she is fine now . Advised if anything changes she can let us know and we will get it for her. Emesis and the pt were cleaned up, the pt was placed in a gown and given an emesis bag. CR
--- NOTE | 2024-08-31 12:54 | PC.NURSE ---
Called EMS to alert them of the transfer of this pt to [facility]
[2024-08-31 13:23] VITALS: BP 156/93; PULSE 79; RESP 18; TEMP 36.7; O2SAT 94
[2024-08-31 15:27] LABS: HIV (1&2) Antibody Rapid NONREACTIVE (NONREACTIVE)
[2024-09-01 08:35] LABS: HCV Ab Non Reactive (Non Reactive)
== END 2024-08-31 13:20 | disposition other institution (70) ==
PROVIDERS: Emergency Provider Student in an Organized Health Care Education/Training Program
DX: R25.1 Tremor, unspecified (principal); R47.01 Aphasia
CPT/HCPCS: 70450; 70496; 70498; 71045; 80053; 84484; 85025; 85610; 85730; 86803; 87389; 93005; 99291; Q9963

== ENCOUNTER 2024-11-15 10:00 | Outpatient (RCR) | payer MEDICARE, OTHER, SELFPAY ==
--- NOTE | 2024-05-24 15:26 | HMH.SLAPHASI ---
Speech & Language Evaluation Speech/Language Aphasia Evaluation Start: 05/24/24 14:48 Freq: once Status: Complete Protocol: Document 05/24/24 14:48 WALKERFLAQUITA (Rec: 05/24/24 15:26 [id number] Aphasia Assessment/Goals/Plan Assessment Date of Evaluation: 05/24/24 Evaluation Type Initial Certification Assessment/Problems h/o CVA & multiple TIAs, expressive aphasia per MD order. Does Patient Qualify for Service Yes Qualify/Failure Comment Based on clinical observations , informal assessment results, and patient/caregiver interviews, Salena Dave would benefit from skilled speech therapy services 2x/week to address severe expressive aphasia, apraxia of speech, and executive function deficits in order to improve functional communication with others across multiple settings and environments. 2 Plan Pt will be seen # times/week 2 for # weeks 12 Anticipate reaching STG in # weeks 8 Anticipate reaching LTG in # weeks 12 Pt/Guardian verbally ack understanding Yes of dx/prognosis/goals G -code Required No STG-Auditory Comprehension 2nd Element 75 STG-Reading Comprehension Matching Forms 65 Matching Letters 65 Pointing to Letters by Name 65 Matching Words to Pictures 65 STG-Verbal Expressive Language Automatic Speech 70 Sentence Completion 60 STG-Attending/Orientation/Memory Orientation 75 Custodial Goals Increase auditory comprehension skills Yes: 75% to communicate w/family & friends Increase verbal expression skills to Yes: 70%, AAC communicate w/family & friends. Increase cognitive skills to communicate Yes: 70% w/family & friends Education Instructions provided Discussed assessment results, primary goals/concerns of patient, and POC with pt and her daughter both of which expressed understanding. Pt/Caregiver Able to Recall Information Able to recall/restate Reinforcement needed No Speech & Language HPI History Present Illness Description of Patient Problem 59-year-old female with history of left-sided CVA with residual expressive aphasia currently on Eliquis. PMH includes: 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, type 2 Heart failure, Hypertension, and Kidney disease. Pt/Caregiver Concerns Salena continues to report concerns of difficulty expressing her wants and needs , as well as thoughts and ideas, in an efficient, effective manner and wishes to become more independent with new AAC device. She also expressed concerns for receptive comprehension/ ability to follow conversations with others and word finding difficulties. Rehab Services Assessed Speech therapy Is this evaluation r/t stroke? Yes Language Primary Language [place] Aphasia Evaluations Communication Speech Intelligibility Salena is severely aphasic with apraxia of speech. She presents with overgeneralization of speech, anomia, groping tendencies, and word finding errors. She is unable to imitate single phonemes, inconsistent in her facial expressions, and depends on caregivers to communicate. The majority of her intelligibility is context dependent with max assist from . She is able to answer simple yes/no questions and able to communicate on broad topics when prompts/cues are given. Auditory Comprehension Yes: Word Level Sentences No: Following Directions Conversation AC Comment At times, Salena has difficulty understanding more complex topics within a conversation, but is able to express that she requires rephrasing and/or repetitions to understand. She is able to complete some simple 1-2 step commands, however, more complex directional tasks appear to be difficult for her e.g. complex body parts identification or embedded concepts in a multistep direction. Reading Comprehension No: Letter Naming Word Naming RC Comment Salena is unable to confidently read at this time. She has difficulty expressing appropriate letter names and words. Verbal Expressive Language No: Automatic Speech Completing Sentences Repetition Abilities Word Level Naming Naming Actions/Objects HARLAN Comment Severely aphasic. She is able to count from 1-10 and sing happy birthday, but was only able to complete 14% of days of the week with max assist. Completing simple sentences were inconsistent as she was able to complete with 10% accuracy but states whole phrase of hot and cold. Written Language No: Signature Copy Shapes WL Comment She is noted to be able to write first name and last name 's first initial only. She requires 1:1 prompts and models to imitate simple shapes. Attending/Orientation/Memory No: Orientation Memory AOM Comment She is aware she is able to answer orientation questions on device, but expressively is only able to answer with her first name when asked orientation questions, all others are hard or I don't know. 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 Salena Dave was administered the QAB ( Quick Aphasia Battery) at this date. The Quick Aphasia Battery (QAB) is made up of eight subtests, each comprising sets of items that probe different language domains, vary in difficulty, and are scored with a graded system to maximize the informativeness of each item. From the eight subtests, eight summary measures are derived, which constitute a multidimensional profile of language function, quantifying strengths and weaknesses across core language domains. Salena's scores were as follows : Word Comprehension: 9.17, mild to no aphasia Sentence Comprehension: 0, severe aphasia Word Findin.67, severe aphasia Grammatical Construction: 4.63 , severe aphasia Speech Motor Programmin, moderate aphasia Repetition: 1.25, severe aphasia Readin.83, severe aphasia QAB Overall: 4.01, severe aphasia Salena had strengths in her ability to communicate her needs when provided with a field of two options and ability to identify desired word. However, when context is unknown or in an unstructured environment, she will be presented with high level difficulty obstacles 2' her anomia, empty speech, and significant paraphasias across her expressive aphasia deficit. She was unable to independently answer most questions throughout the assessment and was unable to imitate simple CVC words. She had difficulty following complex commands, and required repetitions of simple 2-3 step commands. Secondary to her aphasia connected speech impairment Salena's communicatiion is limited in which she is unable to take part in everyday topics 2' deficits found across the assessment. She had strengths in single word comprehension and receptive identification. However, complex yes/no questions were found to be difficulty for her. She was unable to expressively ID everyday objects. Based on these observations, she would benefit from skilled speech therapy services to improve her expressive language skills . At this date, Salena was given the DAGG-2, [employer] Dynamic AAC Goals Grid, to assess target skills and strengths with Salena's recently introduced AAC device . She was also given an informal cognitive-linguistic evaluation to assess her expressive-receptive language skills and executive function skills. Salena reports that she is currently not using her device 2' feeling uncomfortable using it efficiently and nobody helping her in the home environment. Pt currently keeps AAC in box in home environment with less than 20% use device. She presents as a context- dependent in understanding given current state of receptive language skills as Salena has difficulty with complex yes/no questions and following simple multistep directions. When given her AAC she demonstrates the ability to identify photos and picture symbols representing objects or things, and has some understanding of more abstract ideas. However, she continues to require moderate prompting to use in appropriate manner. Her expressive language remains as emergent transitional given her severe expressive aphasia. Socially, Salena presents as a transitionally independent communicator as she has clear intentions with her communication attempts and at times is able to answer routine based questions with a yes/no if asked in a simple manner. However, this skill is currently not carried over to her AAC use. Following her stroke, Salena's literacy skills are complex as in certain contexts she is able to interpret messages, however , she is unable to read multiple paragraphs and is unable to identify various words or letters. Given this information, she presents as an emergent AAC communicator as she is inconsistent in her use and benefits from max assist from communication partners in her communication overall. Her competency levels of her AAC device at this time are as follows: Linguistic Competency: emergent transitional, she is able to use single icons in routine contexts to communicate. Operational Competency: emergent, she requires max to 1:1 prompting to navigate to areas of her device, and has minimal understanding of layout or navigational skills. Social Compentency: context- dependent, she is aware that device is able to be used in structured environments, however, requires assistance to navigate to these areas, and at times (per patient report), it is too much trouble to speak or communicate her intent. PHYSICIAN CERTIFICATION: I certify the specified therapy services for Salena Dave are required, authorized, and reviewed every 30 days.
--- NOTE | 2024-09-20 14:52 | SW/DCPLANNER ---
I have attempted to contact this patient x2 w/ no answer at this time. Attempting to contact patient regarding resources at home.
== END 2024-11-15 23:59 | disposition home or self-care (01) ==
LOC: ST 10:00
PROVIDERS: Visit Provider Physician Assistant
DX: R47.01 Aphasia (principal)
CPT/HCPCS: 87086; 92507; 92523

== ENCOUNTER 2024-12-17 10:00 | Outpatient (RCR) | payer MEDICARE, OTHER, SELFPAY | END 2024-12-17 23:59 | disposition home or self-care (01) | LOC: ST 10:00 | PROVIDERS: Visit Provider Physician Assistant | DX: R47.01 Aphasia (principal) | CPT/HCPCS: 92507 ==

== ENCOUNTER 2024-12-22 09:04 | Outpatient (CLI) | payer MEDICARE, OTHER, SELFPAY ==
[2024-12-22 17:55] LABS: Microscopic, Urine URINE MICROSCOPIC (MICROSCOPIC)
[2024-12-22 18:50] LABS: Appearance,Urine CLEAR (Clear); Bilirubin,Urine Negative (Negative); Blood, Urine Negative (Negative); Color,Urine YELLOW (Yellow); Glucose,Urine (UA) Negative (Negative); Ketones,Urine Negative (Negative); Leukocyte Esterase,Urine TRACE (Negative); Nitrate,Urine Negative (Negative); Protein,Urine Negative (Negative); Urobilinogen,Urine 0.2 EU/dl (0.2)
[2024-12-22 18:52] LABS: Total Protein,Urine Random < 5.0 mg/dL (0.0-12.0)
[2024-12-22 18:55] LABS: Creatinine,Urine Random 67 mg/dL (Not Estab.)
[2024-12-22 19:29] LABS: Hemoglobin A1C 7.2 % (4.0-6.0)
[2024-12-22 19:31] LABS: Microalbumin < 6.000 mg/L (0-16.7)
[2024-12-22 19:33] LABS: Alanine Aminotransferase 32 U/L (12-78); Albumin Level 4.4 g/dl (3.5-5.0); Albumin/Globulin Ratio 2.1 (1.1-1.8); Alkaline Phosphatase 73 U/L (38-126); Anion Gap 13.3 mEq/L (5-15); Aspartate Amino Transferase 32 U/L (14-36); Bilirubin,Total 0.7 mg/dl (0.2-1.3); Blood Urea Nitrogen 12 mg/dl (7-17); Calcium 9.4 mg/dl (8.4-10.2); Carbon Dioxide 26 mmol/L (22.0-30.0); Chloride 105 mmol/L (98-107); Cholesterol 170 mg/dl (140-200); Estimated Glomerular Filt Rate 86 ml/min (>60); GFR (African American) 104 ML/MIN (>60); Globulin 2.1 g/dL (1.3-3.2); Glucose 133 mg/dl (74-100); HDL Cholesterol 34 mg/dl (40-60); Potassium 4.3 mmoL/L (3.5-5.1); Sodium 140 mmol/L (136-145); Total Protein,Serum 6.5 g/dl (6.3-8.2); Triglycerides 230 mg/dl (30-150); VLDL Cholesterol 46 mg/dL (0-40)
[2024-12-22 19:45] LABS: Direct LDL Cholesterol 73.77 mg/dL (100-129)
[2024-12-22 19:52] LABS: Free T4 (Free Thyroxine) 1.06 ng/dl (0.78-2.19)
[2024-12-22 20:07] LABS: Thyroid Stimulating Hormone 6.49 uIU/mL (0.465-4.68)
[2024-12-22 22:39] LABS: Bacteria,Urine 1+ /lpf
== END 2024-12-22 23:59 | disposition home or self-care (01) ==
LOC: LAB.DROPOF 12-24 09:05
PROVIDERS: PCP Nurse Practitioner Family; Visit Provider Nurse Practitioner Family
DX: I10 Essential (primary) hypertension (principal); E11.40 Type 2 diabetes mellitus with diabetic neuropathy, unspecified; Z79.4 Long term (current) use of insulin; R32 Unspecified urinary incontinence; E03.9 Hypothyroidism, unspecified; E78.49 Other hyperlipidemia; Z86.79 Personal history of other diseases of the circulatory system; R47.01 Aphasia; Z79.899 Other long term (current) drug therapy; Q24.8 Other specified congenital malformations of heart; R56.9 Unspecified convulsions; F33.40 Major depressive disorder, recurrent, in remission, unspecified; N28.9 Disorder of kidney and ureter, unspecified; I50.9 Heart failure, unspecified
CPT/HCPCS: 80053; 80061; 81001; 82043; 82570; 83036; 84156; 84439; 84443; 87086

== ENCOUNTER 2025-01-03 08:30 | Emergency (ER) | payer MEDICARE, OTHER, SELFPAY ==
[2025-01-03] VITALS (7 sets, daily range): BP systolic 135–155; BP diastolic 88–97; PULSE 69–97; RESP 17–20; TEMP 36.6–36.8; O2SAT 95–100; BMI 32.3
--- NOTE | 2025-01-03 08:32 | ECG_ITS ---
APPROVED REPORT Exam: Resting ECG HR:89 bpm ECG Measurements Heart Rate 89 AXES PA 171 P 10 QRSd 92 QRS -29 QT 363 T 72 QTc 410 Conclusion SINUS RHYTHM BORDERLINE LEFT AXIS DEVIATION [QRS AXIS < -20] NONSPECIFIC T-WAVE ABNORMALITY Electronically signed by : EMANUEL WOOTEN, 01/03/2025 15:11:13
--- NOTE | 2025-01-03 08:44 | XR_ITS ---
FINAL REPORT CLINICAL HISTORY: chest pain, vomiting, diarrhea COMPARISON: 03/03/2024 FINDINGS: PA and lateral views of the chest were obtained. The cardiac and mediastinal silhouettes are within normal limits. The lungs are clear. There is no pleural effusion or pneumothorax. No acute osseous abnormality is identified. IMPRESSION: No radiographic evidence of acute cardiac or pulmonary disease. Reviewed, Interpreted and Dictated by Cecy Deng MD Transcribed by Kait Guillen Authenticated and [facility]
[2025-01-03 09:00] LABS: Basophils % 0.6 % (0.1-2.0); Eosinophils # 0.1 K/mm3 (0.0-0.4); Hematocrit 42.1 % (37.0-47.0); Hemoglobin 14.2 g/dL (12.2-16.2); Lymphocytes # 1.3 K/mm3 (0.7-4.5); Lymphocytes % 20.4 % (10-50); Mean Corpuscular HGB Conc 33.7 g/dL (31.8-35.4); Mean Corpuscular Hemoglobin 27.8 pg (27.0-31.2); Mean Corpuscular Volume 82.5 fl (81-99); Mean Platelet Volume 10.9 fl (7.4-10.4); Monocytes # 0.3 K/mm3 (0.1-1.0); Monocytes % 5.1 % (1.7-9.3); Neutrophils # 4.6 K/mm3 (1.8-7.8); Neutrophils % 72.7 % (37.0-80.0); Platelet Count 207 K/mm3 (142-424); Red Cell Distribution Width 13.4 % (11.5-17.5); White Blood Count 6.3 K/mm3 (4.8-10.8)
--- NOTE | 2025-01-03 09:01 | PC.NURSE ---
pt to RAD via WC
--- NOTE | 2025-01-03 09:01 | PC.NURSE ---
PT TO RADIOLOGY
--- NOTE | 2025-01-03 09:06 | PC.NURSE ---
PT RETURNED FROM XR
[2025-01-03 09:08] LABS: Chloride 101 mmol/L (98-107); Potassium 5.3 mmoL/L (3.5-5.1); Sodium 139 mmol/L (136-145)
[2025-01-03 09:10] LABS: Alanine Aminotransferase 61 U/L (12-78); Aspartate Amino Transferase 89 U/L (14-36); Blood Urea Nitrogen 16 mg/dl (7-17); Creatinine Clearance Estimated 110 mL/min (50-200); Estimated Glomerular Filt Rate 74 ml/min (>60); GFR (African American) 89 ML/MIN (>60)
[2025-01-03 09:11] LABS: Albumin/Globulin Ratio 1.6 (1.1-1.8); Alkaline Phosphatase 43 U/L (38-126); Anion Gap 19.3 mEq/L (5-15); Bilirubin,Total 1.5 mg/dl (0.2-1.3); Calcium 9.3 mg/dl (8.4-10.2); Carbon Dioxide 24 mmol/L (22.0-30.0); Globulin 3.2 g/dL (1.3-3.2); Glucose 259 mg/dl (74-100); Lipase 69 U/L (23-300); Magnesium 1.7 mg/dl (1.6-2.3); Total Protein,Serum 8.2 g/dl (6.3-8.2)
--- NOTE | 2025-01-03 09:18 | ED_ITS ---
Discharge Plan Disposition Patient Disposition: Home, Self-Care Condition: Good Prescriptions Prescriptions: New ondansetron 4 mg tablet,disintegrating 4 mg PO Q8H PRN (Reason: nausea and vomiting) 4 Days Qty: 12 0RF No Action ergocalciferol (vitamin D2) 1,250 mcg (50,000 unit) capsule 1,250 mcg PO WEEKLY Patient Comments: TAKE ONE CAPSULE BY MOUTH ONCE A WEEK Eliquis 5 mg tablet 5 mg PO BID Qty: 180 3RF aspirin 81 mg tablet,chewable 81 tab PO DAILY Qty: 90 3RF omeprazole 40 mg capsule,delayed release(DR/EC) 40 mg PO DAILY Qty: 90 0RF amlodipine 5 mg tablet 5 mg PO DAILY Qty: 90 3RF Fiasp FlexTouch U-100 Insulin 100 unit/mL (3 mL) insulin pen 10 unit SQ TID Ozempic 2 mg/dose (8 mg/3 mL) pen injector 2 mg SQ WEEKLY Qty: 3 11RF insulin glargine [Lantus Solostar U-100 Insulin] 100 unit/mL (3 mL) insulin pen 34 unit SQ HS Qty: 15 11RF levothyroxine 50 mcg tablet 50 mcg PO QAM Qty: 90 3RF (DME) FreeStyle Dereck 3 Plus Sensor Device See Rx Instructions .Route Qty: 2 11RF Rx Instructions: As directed (DME) FreeStyle Dereck 3 [place] Misc See Rx Instructions .Route Qty: 1 11RF Rx Instructions: As directed (DME) pen needle, diabetic [BD Ultra-Fine Mini Pen Needle] 31 gauge x 3/16 needle See Rx Instructions .ROUTE .MEDSUPPLY Qty: 1200 Rx Instructions: As directed (DME) pen needle, diabetic [BD Ultra-Fine Lachel[place] Pen Needle] 32 gauge x 5/32 needle See Rx Instructions .ROUTE .MEDSUPPLY Qty: 1200 Rx Instructions: As directed atorvastatin 80 mg tablet 80 mg PO HS Qty: 90 3RF carvedilol 12.5 mg tablet 12.5 mg PO BID Qty: 180 3RF Rx Instructions: must administer with a meal/food donepezil 5 mg tablet 5 mg PO HS Qty: 90 3RF cholecalciferol (vitamin D3) 50 mcg (2,000 unit) capsule 50 mcg PO DAILY Qty: 90 3RF levetiracetam 500 mg tablet 500 mg PO BID Qty: 180 3RF losartan 100 mg tablet 100 mg PO DAILY Qty: 90 3RF trazodone 50 mg tablet 50 mg PO HS Qty: 90 3RF Referrals Follow up/Referrals: Margoth Brand PA [Primary Care Provider] - See instructions Activity Restrictions/Add. Instructions Additional Instructions/Restrictions: You were evaluated in the emergency department today. At this time, your labs demonstrate mildly elevated AST, which is a liver enzyme. Your bilirubin is also mildly elevated. You were found to have a cyst on your right kidney, which is likely benign and nothing to worry about. Please follow-up with your primary care provider for reassessment of all these things. Please pickle sorter your prescription for Zofran and take as needed for nausea and vomiting. Orally hydrate is much as possible. Return to the emergency department for new or worsening symptoms. Clinical Impressions Clinical Impression: Nausea, vomiting and diarrhea, Elevated aspartate aminotransferase level, Elevated bilirubin, Cyst of right kidney, Hyperkalemia, Dehydration Stand Alone Forms Stand Alone Forms: Work/School Release Instructions Patient Instructions: DI for Diarrhea and Traveler's Diarrhea -- Adult, DI for Nausea -- Adult Print Language Print Language: Icelandic Discharge ED Provider: Veronica Cruz General Adult HPI General Chief complaint: Nausea/Vomiting/Diarrhea Stated complaint: CP Time Seen by Provider: 01/03/25 08:37 Mode of Arrival: Family Vehicle Source of Information: Patient and Medical Record Limitations: No Limitations Description of Symptoms (Recalled from ER Triage Doc. by RN): Pt c/o of feeling unwell for 2 days. States she has been nauseasted and vomiting with body aches and chills. She has a hx of cva, diabetes, and cad. She also reports chest pain, but is unable to explain where and how bad it hurts d/t her aphasia. States her BP was 159/110 and FS of 263 this AM. She is tender to her upper ABD. History of Present Illness HPI narrative: This patient is a 59-year-old female with a history of CVA with residual right- sided deficits and expressive aphasia, diabetes, CKD, CHF, hypertension presented to the emergency department for evaluation with concern for nausea, vomiting, and diarrhea. Patient states that she started feeling sick last night. She is also having bodyaches and chills. she denies any pain to me, stating that she just generally feels sick and unwell. She notes she is supposed to go to her PCPs office, but since she was feeling so sick she decided to come in here. Related Data Home Medications ?Medication ?Instructions ?Recorded ?Confirmed pen needle, diabetic 31 gauge x #1,200 ea 03/31/24 01/03/2501/30 (BD Ultra-Fine Mini Pen Needle) pen needle, diabetic 32 gauge x #1,200 ea 05/10/24 01/03/25 (BD Ultra-Fine Lachelle Pen Needle) ergocalciferol (vitamin D2) 1,250 1,250 mcg PO WEEKLY 10/11/24 01/03/25 mcg (50,000 unit) capsule insulin aspart 10 unit SQ TID with meals 12/22/24 01/03/25 (niacinamide)(U-100) 100 unit/mL(3 mL) subcutaneous pen (Fiasp FlexTouch U-100 Insulin) Previous Rx's ?Medication ?Instructions ?Recorded atorvastatin 80 mg tablet 80 mg PO HS #90 tabs 08/16/24 carvedilol 12.5 mg tablet 12.5 mg PO BID #180 tabs 08/16/24 cholecalciferol (vitamin D3) 50 50 mcg PO DAILY #90 caps 08/16/24 mcg (2,000 unit) capsule donepezil 5 mg tablet 5 mg PO HS #90 tabs 08/16/24 levetiracetam 500 mg tablet 500 mg PO BID #180 tabs 08/16/24 losartan 100 mg tablet 100 mg PO DAILY #90 tabs 08/16/24 trazodone 50 mg tablet 50 mg PO HS #90 tabs 08/16/24 apixaban 5 mg tablet (Eliquis) 5 mg PO BID #180 tabs 09/30/24 amlodipine 5 mg tablet 5 mg PO DAILY #90 tabs 12/22/24 aspirin 81 mg chewable tablet 81 tab PO DAILY #90 tabs 12/22/24 insulin glargine 100 unit/mL (3 34 unit (0.34 mL) SQ HS #15 mL 12/22/24 mL) subcutaneous pen (Lantus Solostar U-100 Insulin) levothyroxine 50 mcg tablet 50 mcg PO QAM #90 tabs 12/22/24 omeprazole 40 mg capsule,delayed 40 mg PO DAILY #90 caps 12/22/24 release semaglutide 2 mg/dose (8 mg/3 mL) 2 mg (0.75 mL) SQ WEEKLY #3 mL 12/22/24 subcutaneous pen injector (Ozempic) blood-glucose meter,continuous #1 ea 12/23/24 (FreeStyle Dereck 3 [place]) blood-glucose sensor (FreeStyle #2 ea 12/23/24 Dereck 3 Plus Sensor device) ondansetron 4 mg disintegrating 4 mg PO Q8H PRN nausea and 01/03/25 tablet vomiting 4 days #12 tabs Allergies Allergy/AdvReac Type Severity Reaction Status Date / Time No Known Allergies Allergy Verified 12/22/24 10:36 [facility] Disclaimer: The information contained in this section may have been updated after the patient was seen, as this information can be updated by other users. Medical History Encounter for hepatitis C screening test for low risk patient Encounter for screening examination for sexually transmitted disease Screening for HIV (human immunodeficiency virus) Establishing care with new doctor, encounter for Vaginitis PFO (patent foramen ovale) History of CVA with residual deficit A-fib Rectal bleed Expressive aphasia Hypothyroidism Seizure Dysphagia Vaginal discharge Type 2 diabetes mellitus with diabetic neuropathy Stroke TIA (transient ischemic attack) Urinary Incontinence Dysphagia Esophageal foreign body History of multiple strokes Generalized weakness Depression Urinary leakage Persistent complex bereavement disorder Adjustment disorder with depressed mood History of stroke Heart failure Kidney disease 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, type 2 Hypertension Surgical History S/P patent foramen ovale closure Hx of total thyroidectomy Hx of hysterectomy History of colonoscopy Family History Father Heart disease Heart attack Mother Stroke Alzheimer's dementia Other Coronary artery disease Diabetes Hyperlipidemia Hypertension Social History Smoking Status: Never smoker alcohol intake: never substance use type: denies use current occupational status: disabled Travel in the last 8 weeks: None household members: family housing: apartment marital status: number of children: 4 Have you lived/traveled outside US in past 30 days?: No Contact w/someone who lives/traveled outside US past 30 days?: No Exposure to someone with infectious disease in past 14 days?: No Do you have a fever (greater than 100.4 F or 38 C)?: No Have you tested positive for COVID-19: No Exposed to someone with COVID-19 in past 14 days?: No Do you have a sore throat?: No Do you have a cough?: No Do you have any weakness?: No Do you have any diarrhea?: No Are you experiencing any unusual bleeding?: No Do you have any muscle aches/pain?: No Do you have any abdominal pain?: No Are you experiencing loss of taste or smell?: No Other Medical History Have you received the Flu Vaccine for this season: No Have you received the Pneumonia Vaccine: No ROS Obtained: Yes All systems reviewed & no additional complaints except as documented Physical Exam General General appearance: alert and in no apparent distress Head Head exam: atraumatic and normocephalic Eye Eye exam: Present normal appearance, PERRL and EOMI ENT ENT exam: Present normal exam, normal oropharynx, mucous membranes moist and normal external ear exam Neck Neck exam: Present normal inspection, full ROM and trachea midline; Absent tenderness Chest Chest inspection: Present normal inspection and symmetric chest wall rise; Absent tenderness Respiratory Respiratory exam: Present normal lung sounds bilaterally; Absent respiratory distress, wheezes, stridor or accessory muscle use Cardiovascular Cardiovascular exam: Present regular rate and normal rhythm Abdominal Exam Abdominal exam: Present soft; Absent distention, tenderness or guarding Extremities Exam Extremities exam: Present normal inspection, full ROM and normal capillary refill; Absent tenderness or edema Back Exam Back exam: Present normal inspection and full ROM; Absent tenderness Neurological Exam Neurological exam: Present alert, oriented X3, CN II-XII intact and normal gait; Absent motor sensory deficit Psychiatric Psychiatric exam: Present normal affect and normal mood Skin Skin exam: Present warm and dry Medical Decision Making Medical Records Medical records reviewed: Yes I reviewed the patient's medical records. Screening: Per USPSTF and CDC recommendations, given the prevalence of disease in our region, it is our hospital?s policy to screen for HIV and viral Hepatitis for all patients aged 18 and over and those with ongoing risk factors. Chandan Inquiry Pt receiving controlled substance: No Vital Signs: 01/03/25 08:33 01/03/25 08:48 01/03/25 09:00 Temperature 97.9 F Temperature Source Oral Pulse Rate 97 H 87 Pulse Rate [Right] 97 H Respiratory Rate 20 Blood Pressure Blood Pressure [Right Arm] 155/97 H Blood Pressure Mean [Right Arm] 116 Blood Pressure Source Blood Pressure Source [Right Arm] Automatic Cuff Blood Pressure Position 02 Sat by Pulse Oximetry 96 97 Oxygen Delivery Method Room Air Room Air 01/03/25 09:30 01/03/25 10:30 01/03/25 11:00 Temperature Temperature Source Pulse Rate 82 69 76 Pulse Rate [Right] Respiratory Rate 19 19 17 Blood Pressure 145/91 H 146/92 H 135/88 Blood Pressure [Right Arm] Blood Pressure Mean [Right Arm] Blood Pressure Source Blood Pressure Source [Right Arm] Blood Pressure Position 02 Sat by Pulse Oximetry 95 100 100 Oxygen Delivery Method Room Air Room Air Room Air 01/03/25 12:05 Temperature 98.2 F Temperature Source Oral Pulse Rate 77 Pulse Rate [Right] Respiratory Rate 17 Blood Pressure 135/88 Blood Pressure [Right Arm] Blood Pressure Mean [Right Arm] Blood Pressure Source Automatic Cuff Blood Pressure Source [Right Arm] Blood Pressure Position Sitting 02 Sat by Pulse Oximetry Oxygen Delivery Method Room Air Lab Data Lab results reviewed: Yes I reviewed the patient's lab results. Lab Results 01/03/25 08:50: WBC 6.3, RBC 5.10, Hgb 14.2, Hct 42.1, MCV 82.5, MCH 27.8, MCHC 33.7, RDW 13.4, Plt Count 207, MPV 10.9 H, Neut % (Auto) 72.7, Lymph % (Auto) 20.4, Sebastian % (Auto) 5.1, Eos % (Auto) 1.0, Baso % (Auto) 0.6, Neut # (Auto) 4.6, Lymph # (Auto) 1.3, Sebastian # (Auto) 0.3, Eos # (Auto) 0.1, Baso # (Auto) 0.0, Sodium 139, Potassium 5.3 H, Chloride 101, Carbon Dioxide 24, Anion Gap 19.3 H, BUN 16, Creatinine 0.80, Estimated Creat Clear 110, Estimated GFR 74, Est GFR ( Amer) 89, Glucose 259 H, Calcium 9.3, Magnesium 1.7, Total Bilirubin 1.5 H, AST 89 H, ALT 61, Alkaline Phosphatase 43, Troponin I 0.02, Total Protein 8.2 D, Albumin 5.0, Globulin 3.2, Albumin/Globulin Ratio 1.6, Lipase 69 01/03/25 09:20: SARS-CoV-2 (PCR) Not detected, Influenza A Untype (PCR) Not detected, Influenza Type B (PCR) Not detected 01/03/25 09:30: Urine Color Dark yellow, Urine Appearance Sl cloudy, Urine pH 6.5, Ur Specific [place] >= 1.030, Urine Protein 3+ A, Urine Glucose (UA) Negative, Urine Ketones Negative, Urine Blood Negative, Urine Nitrate Negative, Urine Bilirubin Negative, Urine Urobilinogen 0.2, Ur Leukocyte Esterase Negative, Urine RBC 3-5, Urine WBC Occasional, Ur Squamous Epith Cells 10-20, Urine Bacteria 2+ 01/03/25 11:08: Troponin I < 0.01 01/03/25 08:50 01/03/25 08:50 Orders (Tests/Meds): ED MEDICATIONS Discontinued Medications Generic Name Dose Route Start Last Admin Trade Name Freq PRN Reason Stop Dose Admin Acetaminophen 1,000 mg 01/03/25 08:44 01/03/25 09:20 Acetaminophen 1,000mg/100ml Vial IV 01/03/25 08:45 1,000 mg ONCE ONE Administration Famotidine 20 mg 01/03/25 08:44 01/03/25 09:19 Famotidine 20mg/2ml Vial IV 01/03/25 08:45 20 mg ONCE ONE Administration Lactated Ringer's 1,000 mls @ 999 mls/hr 01/03/25 08:44 01/03/25 09:20 Lactated Ringer's 1000 Ml Bag IV 01/03/25 09:44 999 mls/hr .Q1H1M ONE Administration Ketorolac Tromethamine 15 mg 01/03/25 08:44 01/03/25 09:19 Ketorolac 30mg/Ml Vial IV 01/03/25 08:45 15 mg ONCE ONE Administration Ondansetron HCl 4 mg 01/03/25 08:44 01/03/25 09:20 Ondansetron 4mg/2ml Vial IV 01/03/25 08:45 4 mg ONCE ONE Administration Sodium Chloride 8 ml 01/03/25 08:44 Sodium Chloride 0.9% 10ml Vial IV 02/02/25 08:43 NEEDED PRN dilute pepcid ORDERS Category Date Time Status CXR 2 view (NOT portable) [XR chest 2V] Stat Exams 01/03/25 08:44 Completed US RUQ [US abdomen limited] Stat Exams 01/03/25 09:49 Completed Complete Blood Count Auto Diff Stat Lab 01/03/25 08:50 Completed Comprehensive Metabolic Panel Stat Lab 01/03/25 08:50 Completed Lipase Stat Lab 01/03/25 08:50 Completed MAG [Magnesium] Stat Lab 01/03/25 08:50 Completed Rapid PCR Covid and Flu A/B Stat Lab 01/03/25 09:20 Completed Trop I [Troponin I] Stat Lab 01/03/25 08:50 Completed Troponin I Q3H Lab 01/03/25 11:08 Completed UA [Urinalysis and Microscopic] Stat Lab 01/03/25 09:30 Completed Urine Culture Stat Micro 01/03/25 09:30 Received ECG Data Tracing #1: I reviewed this ECG and interpreted as documented below: Normal sinus rhythm with a ventricular rate of [address] changes concerning for ischemia. Left axis deviation. Normal intervals ECG initial impression date: 01/03/25 ECG initial impression time: 08:33 Medical Decision Narrative: In summary, this patient is a 59-year-old female presenting to the Emergency Department for evaluation of nausea, vomiting, diarrhea, chills. Differential diagnoses considered include but are not limited to gastroenteritis, colitis, pancreatitis, cholecystitis, dehydration, viral syndrome. Ruling out the most morbid conditions drove assessment. It should be noted patient's history includes diabetes, hypertension, hyperlipidemia, GERD, prior CVA which is reportedly at goal therapy. This complicates all aspects of care by increasing patient's risk for morbidity. I reviewed patient's past medical records and noted prior PCP evaluations on an outpatient basis for management of her chronic comorbidities as above. On exam, the patient is lying in bed in no acute distress with reassuring vital signs and cardiac telemetry. She complains of no pain, just aching overall that she feels very bad with nausea, vomiting, and diarrhea overnight. Abdominal exam is benign with no localizable tenderness. EKG obtained is reassuring. Workup included CBC, CMP, lipase, troponin, viral swab, chest x-ray, urinalysis, EKG. I ordered diarrhea panel, but patient is not able to provide 1 at this time. I gave her a bolus of IV fluids, IV Pepcid, IV Zofran, IV acetaminophen for symptomatic improvement. Mild hyperbilirubinemia, mildly elevated AST. This is nonspecific, but given possible epigastric/right upper quadrant pain, I did decide to obtain right upper quadrant ultrasound. She is status post cholecystectomy, but I was evaluating for possible retained stone or biliary dilatation. She also looks dry with very mild hyperkalemia, mildly elevated anion gap. She responded very well to IV fluids and was feeling a lot better. I independently interpreted sound prior to the radiologist read and noted no biliary dilatation. Please see their read for final interpretation. On multiple subsequent reassessments, the patient is resting comfortably and is feeling better. She has had no recurrence of vomiting. She has also had no diarrhea here. Vitals reassuring on cardiac telemetry. Troponins negative x 2. At this time, I feel the patient is appropriate for discharge home with diagnosis of likely gastroenteritis as a cause of nausea, vomiting, and diarrhea. She is given prescription for nausea medicine to have at home, instructions for supportive management, strict return precautions. She was discharged after all questions were answered. Critical Care Critical Care Time Critical Care Time: No
[2025-01-03] MEDS: KETOROLAC 30MG/ML VIAL 15 MG IV (09:19)
[2025-01-03] MEDS: FAMOTIDINE 20MG/2ML VIAL 20 MG IV (09:19)
[2025-01-03] MEDS: ACETAMINOPHEN 1,000MG/100ML VIAL 1000 MG IV (09:20)
[2025-01-03] MEDS: LACTATED RINGERS 1000ML 1,000 ML 999 ML IV (09:20)
[2025-01-03] MEDS: ONDANSETRON 4MG/2ML VIAL 4 MG IV (09:20)
--- NOTE | 2025-01-03 09:21 | PC.NURSE ---
covid/flu swab sent to lab; pt ambulatory to restroom
[2025-01-03 09:23] LABS: Troponin I 0.02 ng/ml (0.00-0.034)
[2025-01-03 09:26] LABS: Coronavirus 19, PCR Not Detected (NotDetected); Influenza A, PCR Not Detected (NotDetected); Influenza B, PCR Not Detected (NotDetected)
--- NOTE | 2025-01-03 09:31 | PC.NURSE ---
UA sent to lab. Pt reports shes unable to leave a stool sample at this time
[2025-01-03 09:34] LABS: Microscopic, Urine URINE MICROSCOPIC (MICROSCOPIC)
[2025-01-03 09:43] LABS: Appearance,Urine SL CLOUDY (Clear); Bilirubin,Urine Negative (Negative); Blood, Urine Negative (Negative); Color,Urine DARK YELLOW (Yellow); Glucose,Urine (UA) Negative (Negative); Ketones,Urine Negative (Negative); Leukocyte Esterase,Urine Negative (Negative); Nitrate,Urine Negative (Negative); PH,Urine 6.5 (5.0-8.5); Protein,Urine 3+ (Negative); Specific Gravity, Urine >= 1.030 (1.005-1.030); Urobilinogen,Urine 0.2 EU/dl (0.2)
--- NOTE | 2025-01-03 09:49 | US_ITS ---
FINAL REPORT TECHNIQUE: Sonographic images of the right upper quadrant were obtained. CLINICAL HISTORY: upper abd pain, hyperbili, transaminitis FINDINGS: PANCREAS: The tail is obscured. The pancreatic head is unremarkable. LIVER: Fatty infiltration. No focal hepatic lesion. No intrahepatic biliary ductal dilatation. The portal vein is patent with normal direction of flow. GALLBLADDER: The gallbladder has been resected. COMMON DUCT: 6 mm. Normal for age. RIGHT KIDNEY: The right kidney measures 12.1 cm. There is no hydronephrosis or stone. Right renal cysts are noted. FREE FLUID: None. IMPRESSION: Fatty liver. Right renal cysts. Reviewed, Interpreted and Dictated by Cecy Deng MD Transcribed by Rissa Gutierrez Authenticated and [facility]
--- NOTE | 2025-01-03 09:56 | PC.NURSE ---
pt to US via WC with vending service technician
[2025-01-03 09:59] LABS: Bacteria,Urine 2+ /lpf; WBC,Urine Occasional #/hpf (0-3)
--- NOTE | 2025-01-03 10:30 | PC.NURSE ---
pt returned from US.
--- NOTE | 2025-01-03 11:00 | PC.NURSE ---
unsuccessful butterfly draw attempt x 2; lab has been called to come get her 2nd troponin.
--- NOTE | 2025-01-03 11:10 | PC.NURSE ---
lab was able to get 2nd troponin and it has been sent to lab
[2025-01-03 11:44] LABS: Troponin I < 0.01 ng/ml (0.00-0.034)
--- NOTE | 2025-01-03 11:54 | PC.NURSE ---
DR WOOTEN AT BEDSIDE TO UPDATE PT
== END 2025-01-03 12:05 | disposition home or self-care (01) ==
PROVIDERS: Emergency Provider Emergency Medicine; PCP Physician Assistant
DX: E86.0 Dehydration (principal); E87.5 Hyperkalemia; N28.1 Cyst of kidney, acquired; R17 Unspecified jaundice; R74.01 Elevation of levels of liver transaminase levels; R07.9 Chest pain, unspecified; R11.2 Nausea with vomiting, unspecified; R19.7 Diarrhea, unspecified; M79.10 Myalgia, unspecified site
CPT/HCPCS: 36415; 71046; 76705; 80053; 81001; 83690; 83735; 84484; 85025; 87086; 87636; 93005; 96361; 96374; 96375; 99284; J0131; J1885; J2405; J7120; S0028

== ENCOUNTER 2025-01-06 14:12 | Outpatient (CLI) | payer MEDICARE, OTHER, SELFPAY ==
--- NOTE | 2025-01-06 14:13 | MM_ITS ---
PROCEDURE INFORMATION: Exam: MG Bilateral Screening 3D Mammography Exam date and time: 01/06/2025 2:31 PM Age: 59 years old Clinical indication: Screening examination TECHNIQUE: Imaging protocol: Bilateral Screening tomosynthesis and 2D mammography including computer-aided detection (CAD) when performed. COMPARISON: No relevant prior studies available. FINDINGS: MAMMOGRAPHY: Breast composition: There are scattered areas of fibroglandular density. Mass: None. Architectural distortion: None. Calcifications: No suspicious calcifications. Asymmetric density: None. Skin thickening: None. Axillary adenopathy: None. IMPRESSION: No mammographic evidence of malignancy. Annual screening is recommended unless otherwise clinically indicated. ASSESSMENT: BI-RADS Category 1: Negative.
== END 2025-01-06 23:59 | disposition home or self-care (01) ==
LOC: RAD 14:13
PROVIDERS: PCP Nurse Practitioner Family; Visit Provider Nurse Practitioner Family
DX: Z12.31 Encounter for screening mammogram for malignant neoplasm of breast (principal)
CPT/HCPCS: 77063; 77067

== ENCOUNTER 2025-01-12 10:44 | Outpatient (RCR) | payer MEDICARE, OTHER, SELFPAY ==
--- NOTE | 2025-01-12 14:12 | HMH.OTOPEV ---
OT Inpatient Evaluation Rehab OT Outpatient Eval Start: 01/12/25 13:30 Freq: Status: Active Protocol: Document 01/12/25 14:08 LARONCARLEY (Rec: 01/12/25 14:12 IVAN [id number]) E-signed By Hortencia Triana, OT Outpatient Therapy Subjective History Subjective History Pt is a 59 year old female who reports to therapy with caregiver for initial evaluation following a CVA from 2020. Patient did not receive any therapy services til 2022. Patient was seen by OT in this OP setting from 10/09-03/03/24 for 15 visits. Patient was discharge due to having another stroke and transferred to [facility]. Patient is currently seeing OP [facility] with caregiver beside her. Caregiver reports the patient requires assistance with all IADLs such as cooking, cleaning, finances and transportation. Patient lives in a home with 2 daughters. Caregiver provides information about her level of functioning due to patients expressive aphasia. Pt initially had stroke in December of 2020. Pt lived in [place] at this time. Pt did not have any type of short term rehab following strokes. Her right side was affected along with speaking difficulty . Nba explains patient requires no assistance with ADLs such as dressing, bathing or toileting. Caregiver and patient reported difficulty with fine motor deficits of handwriting skills, writing her first and last name, copying letters and numbers. Therapist observes pt is slightly weaker in RUE. Pt is normally right hand dominant. Pt's right hand dermatology procedural physician strength is also slightly declined as well. Therapist plans to address all of these areas in order to assist in improvement with overall functioning. AROM of B UE WFL. Initial Evaluation on 01/12/25 Current 9 hole peg test: Right hand: 29 seconds Left hand: 30 seconds R hand dermatology procedural physician: 55# Able to copy lines and shapes on the same paper Unable to imitate letter and numbers from memory Difficulty copying numbers from 1 sheet of paper to another; fair translation 9 hole peg test STG Right hand: 25 seconds 9 hole peg test LTG Right hand: 23 seconds STG R hand dermatology procedural physician strength: 60 lbs LTG R hand dermatology procedural physician strength: 65 lbs Writing Goals: Pt will imitate vertical and horizontal strokes in 3/5 trials with min assist and 75% verbal cues for increased graphomotor skills while maintaining a tripod grasp. Pt will imitate simple shapes ([place] si[place], square, triangle, etc) in 3/5 trials with min assist and 75% verbal cues for increased graphomotor while maintaining a tripod grasp. Pt will write first and last name with upper and lower case letters with a model 3/5 times in tx sessions with min assist and 75% verbal cues for increased graphomotor skills. Patient will be able to copy numbers 1-10 from 1 piece of paper to another with a model 3/5 times in txt session with min assist and 75% verbal cues for increased graphomotor skills. New diagnosis of cancer in past 12 No months? Level of pain today (0-10) 0 Pain scale - at its best (0-10) 0 Pain scale - at its worst (0-10) 0 OT Outpatient Assessment Impairments Problems/Impairments Impaired Strength Prognosis Rehab Potential Good Clinical Impression Consistent with Diagnosis Yes Short Term Goals Number of Weeks 2 Increase Strength Yes: see subjective note Intermediate Goals Number of Weeks 4 Increase Strength Yes: see subjective note Outpatient Therapy Plan of Care Treatment Plan May Include Therapeutic Exercise Including Home Yes Exercise Program Therapeutic Activities to Return to Yes Previous Functional/Work Level ADL/Self Care Education Yes Eval/Re-Eval Yes Frequency Times per week 1-2x/wk Duration Number of Weeks 4 weeks Addendums This patient is a candidate for social No or vocational rehab? Patient/Guardian verbally acknowledges Yes understanding of treatment program and consents to further treatment? Patient/Guardian verbally acknowledges Yes understanding of diagnosis, prognosis and goals for treatment? Eval Complexity OT Charge 12616 - Low Complexity Shoulder/Elbow Eval Shoulder Objective Measurements Elbow Objective Measurements PHYSICIAN CERTIFICATION: I certify the specified therapy services for Salena Dave are required, authorized, and reviewed every 30 days.
== END 2025-01-12 23:59 | disposition home or self-care (01) ==
LOC: OT 10:44
PROVIDERS: Visit Provider Nurse Practitioner Family
DX: R47.01 Aphasia (principal); I69.30 Unspecified sequelae of cerebral infarction
CPT/HCPCS: 97165; 97530

== ENCOUNTER 2025-01-13 10:00 | Outpatient (RCR) | payer MEDICARE, OTHER, SELFPAY | END 2025-01-13 23:59 | disposition home or self-care (01) | LOC: ST 10:00 | PROVIDERS: Visit Provider Physician Assistant | DX: R47.01 Aphasia (principal) | CPT/HCPCS: 92507 ==

== ENCOUNTER 2025-02-01 10:00 | Outpatient (RCR) | payer MEDICARE, OTHER, SELFPAY | END 2025-02-01 23:59 | disposition home or self-care (01) | LOC: ST 10:00 | PROVIDERS: Visit Provider Physician Assistant | DX: R47.01 Aphasia (principal) | CPT/HCPCS: 92507 ==

== ENCOUNTER 2025-02-01 11:00 | Outpatient (RCR) | payer MEDICARE, OTHER, SELFPAY | END 2025-02-01 23:59 | disposition home or self-care (01) | LOC: OT 11:00 | PROVIDERS: Visit Provider Nurse Practitioner Family | DX: I69.30 Unspecified sequelae of cerebral infarction (principal); R47.01 Aphasia | CPT/HCPCS: 97110; 97530 ==

== ENCOUNTER 2025-02-04 13:57 | Outpatient (RCR) | payer MEDICARE, MEDICAID, SELFPAY ==
--- NOTE | 2025-02-04 15:59 | HMH.PTOPEV ---
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 Due to these deficits she has difficulty articulating her history and her daughter assists in this area. She reports a general sense of weakness stating, I' m slow when I do things. She also reports intermittently feeling off balance. Her goal is to return to more normal level of activity and she often feels tired from everyday ADLs. Chief Complaint Weakness Symptoms Relieved By Rest/Positioning Symptoms Aggravated By Physical Activity Prior Functional Limitations None Current Functional Limitations Housework,Recreation Activity, Walking,Balance Level of pain today (0-10) 0 Pain scale - at its worst (0-10) 0 Hip/Knee Eval Gait Observation General Gait Pattern Observation No Deviations/Normal MMT right Hip Flexion Strength Grade 4 Good Hip Abduction Strength Grade 4 Good Hip Adduction Strength Grade 4 Good Hip External Rotation Strength Grade 4 Good Hip Internal Rotation Strength Grade 4 Good Knee Extension Strength Grade 5 Normal Knee Flexion Strength Grade 5 Normal Dynamic Gait Index Test Protocol Gait Level Surface Normal Query Text: Instructions: Walk at your normal speed from here to the next dheeraj (20'). Grading: Dheeraj the lowest category that applies. Change in Gait Speed Normal Query Text: Instructions: Begin walking at your normal pace (for 5'), when I tell you go , walk as fast as you can (for 5'). When I tell you slow , walk as slowly as you can (for 5'). Grading: Dheeraj the lowest category that applies. Gait with Horizontal Head Turns Mild Impairment Query Text: Instructions: Begin walking at your normal pace. When I tell you to look right , keep walking straight, but turn you head to the right. Keep looking to the right unit I tell you look left , then keep walking straight and turn your head to the left. Keep your head to the left until I tell you look straight , then keep walking straight, but return you head to the center. Grading: Dheeraj the lowest category that applies. Gait with Vertical Head Turns Mild Impairment Query Text: Instructions: Begin walking at your normal pace. When I tell you to look up , keep walking staight, but tip your head up. Keep looking up until I tell you to look down , then keep walking straight and tip your head down. Keep your head down until I tell you look straight , then keep walking straight, but return your head to the center. Grading: Dheeraj the lowest category that applies. Gait and Pivot Turn Normal Query Text: Instructions: Begin walking at your normal pace. When I tell you turn and stop , turn as quickly as you can to face the opposite direction and stop. Grading: Dheeraj the lowest category that applies. Step Over Obstacle Mild Impairment Query Text: Instructions: Begin walking at your normal speed. When you come to the shoebox, step over it, not around it and keep walking. Grading: Dheeraj the lowest category that applies. Step Around Obstacles Normal Query Text: Instructions: Begin walking at normal speed. When you come to the first cone (about 6' away), walk around the right side of it. When you come to the second cone (6' past first cone), walk around it to the left. Grading: Dheeraj the lowest category that applies. Steps Mild Impairment Query Text: Instructions: Walk up these stairs as you would at home. At the top, turn around and walk down. Grading: Dheeraj the lowest category that applies. Scoring Dynamic Gait Index Score 20 Miscellaneous Dx PT Eval Objective Objective FTSTS: 13.24 sec FNF: mildly decreased coordination on R UE HKS: mildly decreased coordination on R LE Outpatient Therapy Assessment Impairments Problems/Impairmments Impaired Strength,Impaired Endurance,Impaired Walking, Impaired Balance Prognosis Rehab Potential Good Comment Skilled therapy services indicated to improve general strengthening, improve balance , and improve coordination in an effort to aid pt return to PLOF. Clinical Impression Consistent with Diagnosis Yes Short Term Goals Number of Weeks 2 Increase Strength Yes: R LE at least 4+/5 throughout Increase DGI Score Yes: Patient to be Ind w/ HEP Yes Nursing Home Goals Number of Weeks 4 Increase Strength Yes: R LE 5/5 throughout Return to Recreational Activities Yes Increase DGI Score Yes: Patient to be Ind w/ Advanced HEP Yes Outpatient Therapy Plan of Care Treatment Plan May Include Therapeutic Exercise Including Home Yes Exercise Program Manual Therapy Techniques Yes Neuromuscular Re-education Yes Therapeutic Activities to Return to Yes Previous Functional/Work Level ADL/Self Care Education Yes Orthotics/Bracing/Splinting Yes Eval/Re-Eval Yes Frequency Times per week 1-2 Duration Number of Weeks 4 Addendums This patient is a candidate for social No or vocational rehab? Patient/Guardian verbally acknowledges Yes understanding of treatment program and consents to further treatment? Patient/Guardian verbally acknowledges Yes understanding of diagnosis, prognosis and goals for treatment? Eval Complexity PT Charges 33001 - High Complexity Shoulder/Elbow Eval Shoulder Objective Measurements Elbow Objective Measurements PHYSICIAN CERTIFICATION: I certify the specified therapy services for Salena Dave are required, authorized, and reviewed every 30 days.
== END 2025-02-04 23:59 | disposition home or self-care (01) ==
LOC: PT 13:57
PROVIDERS: PCP Nurse Practitioner Family; Visit Provider Nurse Practitioner Family
DX: Z86.73 Personal history of transient ischemic attack (TIA), and cerebral infarction without residual deficits (principal)
CPT/HCPCS: 97163

== ENCOUNTER 2025-03-08 11:12 | Emergency (ER) | payer MEDICARE, MEDICAID, SELFPAY ==
[2025-03-08 11:19] VITALS: BP 127/93; PULSE 80; RESP 18; TEMP 36.4; O2SAT 98; BMI 31.3
--- NOTE | 2025-03-08 11:28 | XR_ITS ---
FINAL REPORT CLINICAL HISTORY: Constipation, no BM x 3 days, r/o obstruction COMPARISON: None FINDINGS: A single view of the abdomen was obtained. There is a nonobstructive bowel gas pattern. There are no abnormally dilated loops of small bowel. There are no abnormal calcifications. Surgical clips are noted in the right upper quadrant. IMPRESSION: Nonobstructive bowel gas pattern. Reviewed, Interpreted and Dictated by Prakash Galeano MD Transcribed by Chichi De La Torre Authenticated and [facility]
--- NOTE | 2025-03-08 11:45 | ED_ITS ---
Discharge Plan Disposition Patient Disposition: Home, Self-Care Condition: Good Prescriptions Prescriptions: New polyethylene glycol 3350 [Miralax] 17 gram/dose powder 17 g PO DAILY Qty: 510 0RF sennosides [Senna Lax] 8.6 mg tablet 8.6 mg PO HS Qty: 30 0RF Pjbec-[id number] Enema 19-7 gram/118 mL enema 118 ml [place] DAILY PRN (Reason: constipation) Qty: 133 0RF nitrofurantoin monohyd/m-cryst [Macrobid] 100 mg capsule 100 mg PO BID 5 Days Qty: 10 0RF Rx Instructions: must administer with a meal/food No Action Eliquis 5 mg tablet 5 mg PO BID Qty: 180 3RF aspirin 81 mg tablet,chewable 81 tab PO DAILY Qty: 90 3RF omeprazole 40 mg capsule,delayed release(DR/EC) 40 mg PO DAILY Qty: 90 0RF amlodipine 5 mg tablet 5 mg PO DAILY Qty: 90 3RF Ozempic 2 mg/dose (8 mg/3 mL) pen injector 2 mg SQ WEEKLY Qty: 3 11RF levothyroxine 50 mcg tablet 50 mcg PO QAM Qty: 90 3RF (DME) Omnipod 5 G6-G7 Pods (Gen 5) Cartridge See Rx Instructions .ROUTE .MEDSUPPLY Qty: 5 Patient Comments: CHANGE every 3 DAYS DIRECTED Rx Instructions: As directed mirabegron [Myrbetriq] 50 mg tablet extended release 24 hr 50 mg PO DAILY Qty: 30 2RF (DME) pen needle, diabetic [BD Ultra-Fine Mini Pen Needle] 31 gauge x 3/16 needle See Rx Instructions .ROUTE .MEDSUPPLY Qty: 1200 Rx Instructions: As directed atorvastatin 80 mg tablet 80 mg PO HS Qty: 90 3RF carvedilol 12.5 mg tablet 12.5 mg PO BID Qty: 180 3RF Rx Instructions: must administer with a meal/food donepezil 5 mg tablet 5 mg PO HS Qty: 90 3RF cholecalciferol (vitamin D3) 50 mcg (2,000 unit) capsule 50 mcg PO DAILY Qty: 90 3RF levetiracetam 500 mg tablet 500 mg PO BID Qty: 180 3RF losartan 100 mg tablet 100 mg PO DAILY Qty: 90 3RF trazodone 50 mg tablet 50 mg PO HS Qty: 90 3RF clotrimazole [Antifungal (clotrimazole)] 1 % cream 1 applic topical BID 28 Days Qty: 45 1RF (DME) ReliOn Prime Test Strips Strip See Rx Instructions .Route Qty: 100 11RF Rx Instructions: 4 times per day (DME) Dexcom G7 Hvac Residential Service Technician Misc See Rx Instructions .Route Qty: 1 0RF Rx Instructions: As directed (DME) Dexcom G7 Sensor Device See Rx Instructions .Route Qty: 1 0RF Rx Instructions: As directed insulin aspart U-100 100 unit/mL solution 1 sliding scale dose SQ USEASDIRECTD Qty: 10 11RF (DME) syringe with needle, safety 3 mL 23 gauge x 1 syringe See Rx Instructions miscellaneous .MEDSUPPLY Qty: 100 0RF Rx Instructions: As directed insulin glargine [Lantus Solostar U-100 Insulin] 100 unit/mL (3 mL) insulin pen 40 unit SQ HS Qty: 15 11RF Fiasp FlexTouch U-100 Insulin 100 unit/mL (3 mL) insulin pen 15 unit SQ TID Qty: 15 1RF (DME) pen needle, diabetic 32 gauge x 5/32 needle See Rx Instructions .ROUTE .MEDSUPPLY Qty: 1200 0RF Rx Instructions: As directed nystatin 100,000 unit/gram cream See Rx Instructions .ROUTE .COMPLEX Qty: 15 1RF Dose Instruction: APPLY TOPICALLY TO THE AFFECTED AREA(S) TWICE DAILY Rx Instructions: APPLY TOPICALLY TO THE AFFECTED AREA(S) TWICE DAILY ondansetron 4 mg tablet,disintegrating 4 mg PO Q8H PRN (Reason: nausea and vomiting) 4 Days Qty: 12 0RF Referrals Follow up/Referrals: Alejandrina Broussard APRN [Primary Care Provider] - See instructions Activity Restrictions/Add. Instructions Additional Instructions/Restrictions: You were evaluated in the emergency department today. Please crop picker your prescriptions at the pharmacy and use them as prescribed. Today, I recommend administering 3-4 capfuls of MiraLAX as a one-time dose to help initiate cleanout. I also recommend taking a senna tablet now once you crop picker your prescriptions as well as tonight before bed. After this, use them as needed for constipation per written label instructions. I recommend an enema, and you can either picked up the 1 I provided for you or [id number]. Follow-up closely with your primary care provider. Take your full course of antibiotic as prescribed for your UTI. Return to the emergency department for new or worsening symptoms. Clinical Impressions Clinical Impression: Constipation, UTI (urinary tract infection) Print Language Print Language: Honduran Discharge ED Provider: Veronica Cruz General Adult HPI General Chief complaint: Recheck/Abnormal Lab/Rx Stated complaint: constipated for 3 days Time Seen by Provider: 03/08/25 11:18 Mode of Arrival: Ambulatory Source of Information: Patient and Relative Description of Symptoms (Recalled from ER Triage Doc. by RN): pt has not had a bowel movement in 3 days. took one dose of miralax @ home. History of Present Illness HPI narrative: This patient is a 59-year-old female with a history of prior CVA with expressive aphasia, type 2 diabetes, atrial fibrillation, CHF, CKD, chronic constipation presenting to the emergency department for evaluation with concern for constipation. Patient states that she has not had a bowel movement in 3 days. She tried MiraLAX 2 days ago without good improvement. She has had no abdominal pain, nausea, vomiting, she just cannot poop. She does note some burning when she pees on review of systems. No fevers, chills, or other concerns. Related Data Home Medications ?Medication ?Instructions ?Recorded ?Confirmed pen needle, diabetic 31 gauge x #1,200 ea 03/31/24 02/11/2501/30 (BD Ultra-Fine Mini Pen Needle) insulin pump cart,auto,BT,G6/7 #5 ea 02/11/25 02/11/25 (Omnipod 5 G6-G7 Pods (Gen 5) subcutaneous cartridge) Previous Rx's ?Medication ?Instructions ?Recorded atorvastatin 80 mg tablet 80 mg PO HS #90 tabs 08/16/24 carvedilol 12.5 mg tablet 12.5 mg PO BID #180 tabs 08/16/24 cholecalciferol (vitamin D3) 50 50 mcg PO DAILY #90 caps 08/16/24 mcg (2,000 unit) capsule donepezil 5 mg tablet 5 mg PO HS #90 tabs 08/16/24 levetiracetam 500 mg tablet 500 mg PO BID #180 tabs 08/16/24 losartan 100 mg tablet 100 mg PO DAILY #90 tabs 08/16/24 trazodone 50 mg tablet 50 mg PO HS #90 tabs 08/16/24 apixaban 5 mg tablet (Eliquis) 5 mg PO BID #180 tabs 09/30/24 amlodipine 5 mg tablet 5 mg PO DAILY #90 tabs 12/22/24 aspirin 81 mg chewable tablet 81 tab PO DAILY #90 tabs 12/22/24 levothyroxine 50 mcg tablet 50 mcg PO QAM #90 tabs 12/22/24 omeprazole 40 mg capsule,delayed 40 mg PO DAILY #90 caps 12/22/24 release semaglutide 2 mg/dose (8 mg/3 mL) 2 mg (0.75 mL) SQ WEEKLY #3 mL 12/22/24 subcutaneous pen injector (the grafter) ondansetron 4 mg disintegrating 4 mg PO Q8H PRN nausea and 01/03/25 tablet vomiting 4 days #12 tabs blood sugar diagnostic (ReliOn #100 ea 01/05/25 Prime Test Strips) blood-glucose sensor (Dexcom G7 #1 ea 01/05/25 Sensor device) blood-glucose,data warehouse administrator,cont #1 ea 01/05/25 (Dexcom G7 Hvac Residential Service Technician) clotrimazole 1 % topical cream 1 applic topical BID 4 weeks #45 01/05/25 (Antifungal (clotrimazole)) grams insulin aspart 15 unit SQ TID with meals #15 mL 01/05/25 (niacinamide)(U-100) 100 unit/mL(3 mL) subcutaneous pen (Fiasp FlexTouch U-100 Insulin) insulin aspart U-100 100 unit/mL 1 sliding scale dose SQ 01/05/25 subcutaneous solution USEASDIRECTD omnipod insulin pump #10 mL insulin glargine 100 unit/mL (3 40 unit (0.4 mL) SQ HS #15 mL 01/05/25 mL) subcutaneous pen (Lantus Solostar U-100 Insulin) syringe with needle, safety 3 mL #100 ea 01/05/25 23 gauge x 1 pen needle, diabetic 32 gauge x #1,200 ea 01/26/25 mirabegron 50 mg tablet,extended 50 mg PO DAILY #30 tabs 02/11/25 release 24 hr (Myrbetriq) nystatin 100,000 unit/gram topical See Rx Instructions .Route 03/06/25 cream .COMPLEX #15 grams nitrofurantoin 100 mg PO BID 5 days #10 caps 03/08/25 monohydrate/macrocrystals 100 mg capsule (Macrobid) polyethylene glycol 3350 17 17 g PO DAILY #510 grams 03/08/25 gram/dose oral powder (Miralax) sennosides 8.6 mg tablet (Senna 8.6 mg PO HS #30 tabs 03/08/25 Lax) sodium phosphates 19 gram-7 118 ml [place] DAILY PRN constipation 03/08/25 gram/118 mL enema (Tsrex-Nh-Lwb #133 mL Enema) Allergies Allergy/AdvReac Type Severity Reaction Status Date / Time No Known Allergies [facility]ergy Ver[facility] 02[facility]11[facility]25 12:59 [facility] Dis[facility]: The information contained in this section may have been updated after the patient was seen, as this information can be updated by other users. Medical History Dysphagia Encounter for hepatitis C screening test for low risk patient Encounter for screening examination for sexually transmitted disease Screening for HIV (human immunodeficiency virus) Establishing care with new doctor, encounter for Vaginitis PFO (patent foramen ovale) History of CVA with residual deficit A-fib Rectal bleed Expressive aphasia Hypothyroidism Seizure Vaginal discharge Type 2 diabetes mellitus with diabetic neuropathy Stroke TIA (transient ischemic attack) Urinary Incontinence Dysphagia Esophageal foreign body History of multiple strokes Generalized weakness Depression Urinary leakage Persistent complex bereavement disorder Adjustment disorder with depressed mood History of stroke Heart failure Kidney disease 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, type 2 Hypertension Surgical History S/P patent foramen ovale closure Hx of total thyroidectomy Hx of hysterectomy History of colonoscopy Family History Father Heart disease Heart attack Mother Stroke Alzheimer's dementia Other Coronary artery disease Diabetes Hyperlipidemia Hypertension Social History Smoking Status: Current every day smoker alcohol intake: never substance use type: denies use current occupational status: disabled Travel in the last 8 weeks: None household members: family housing: apartment marital status: number of children: 4 Have you lived/traveled outside [place] in past 30 days?: No Contact w/someone who lives/traveled outside US past 30 days?: No Exposure to someone with infectious disease in past 14 days?: No Do you have a fever (greater than 100.4 F or 38 C)?: No Have you tested positive for COVID-19: No Exposed to someone with COVID-19 in past 14 days?: No Do you have a sore throat?: No Do you have a cough?: No Do you have any weakness?: No Do you have any diarrhea?: No Are you experiencing any unusual bleeding?: No Do you have any muscle aches/pain?: No Do you have any abdominal pain?: No Are you experiencing loss of taste or smell?: No Other Medical History Have you received the Flu Vaccine for this season: No Have you received the Pneumonia Vaccine: No ROS Obtained: Yes All systems reviewed & no additional complaints except as documented Physical Exam General General appearance: alert and in no apparent distress Head Head exam: atraumatic and normocephalic Eye Eye exam: Present normal appearance, PERRL and EOMI ENT ENT exam: Present normal exam, normal oropharynx, mucous membranes moist and normal external ear exam Neck Neck exam: Present normal inspection, full ROM and trachea midline; Absent t enderness Chest Chest inspection: Present normal inspection and symmetric chest wall rise; Absent tenderness Respiratory Respiratory exam: Present normal lung sounds bilaterally; Absent respiratory distress, wheezes, stridor or accessory muscle use Cardiovascular Cardiovascular exam: Present regular rate and normal rhythm Abdominal Exam Abdominal exam: Present soft; Absent distention, tenderness or guarding Extremities Exam Extremities exam: Present normal inspection, full ROM and normal capillary refill; Absent tenderness or edema Back Exam Back exam: Present normal inspection and full ROM; Absent tenderness Neurological Exam Neurological exam: Present alert, oriented X3, CN II-XII intact and normal gait; Absent motor sensory deficit Psychiatric Psychiatric exam: Present normal affect and normal mood Skin Skin exam: Present warm and dry Medical Decision Making Medical Records Medical records reviewed: Yes I reviewed the patient's medical records. Screening: Per USPSTF and CDC recommendations, given the prevalence of disease in our region, it is our hospital?s policy to screen for HIV and viral Hepatitis for all patients aged 18 and over and those with ongoing risk factors. Chandan Inquiry Pt receiving controlled substance: No Vital Signs: 03/08/25 11:19 03/08/25 12:00 03/08/25 12:30 Temperature 97.6 F Temperature Source Oral Pulse Rate 67 64 Pulse Rate [Right] 80 Respiratory Rate 18 Blood Pressure 118/83 132/84 Blood Pressure [Right Arm] 127/93 H Blood Pressure Mean [Right Arm] 104 02 Sat by Pulse Oximetry 98 97 97 Oxygen Delivery Method Room Air Room Air 03/08/25 12:48 03/08/25 13:37 Temperature 98.0 F Temperature Source Pulse Rate 64 Pulse Rate [Right] Respiratory Rate 16 Blood Pressure 132/84 Blood Pressure [Right Arm] 132/84 Blood Pressure Mean [Right Arm] 100 02 Sat by Pulse Oximetry Oxygen Delivery Method Lab Data Lab results reviewed: Yes I reviewed the patient's lab results. Lab Results 03/08/25 12:42: Urine Color Yellow, Urine Appearance Sl cloudy, Urine pH 6.5, Ur Specific [place] 1.025, Urine Protein Negative, Urine Glucose (UA) Negative, Urine Ketones Negative, Urine Blood Negative, Urine Nitrate Negative, Urine Bilirubin Negative, Urine Urobilinogen 2.0, Ur Leukocyte Esterase 1+ A, Urine RBC None, Urine WBC 5-10, Ur Squamous Epith Cells 10-20, Urine Bacteria 1+ Orders (Tests/Meds): ORDERS Category Date Time Status KUB (single view) [XR KUB] Stat Exams 03/08/25 11:28 Completed UA [Urinalysis and Microscopic] Stat Lab 03/08/25 12:42 Completed Urine Culture Stat Micro 03/08/25 12:42 Received Medical Decision Narrative: In summary, this patient is a 59-year-old female presenting to the Emergency Department for evaluation of constipation without abdominal pain. Differential diagnoses considered include but are not limited to constipation, fecal impaction, bowel obstruction. Ruling out the most morbid conditions drove assessment. It should be noted patient's history includes diabetes, hypertension, hyperl ipidemia, atrial fibrillation, CKD, CVA which may or may not be at goal therapy. This complicates all aspects of care by increasing patient's risk for morbidity. I reviewed patient's past medical records and noted prior evaluation by PCP for constipation and maintenance fell in the past. On exam, the patient is sitting upright in no acute distress with no abdominal tenderness noted. She has no significant distention. She is also had no fevers, nausea, vomiting. She does have dysuria. Workup included KUB to evaluate for obstructive process versus fecal impaction versus constipation as well as urinalysis. I considered obtaining basic labs and CT scan of the abdomen and pelvis, however based on reassuring history and exam I do not feel that this is indicated as she is unlikely to have any acute surgical intra- abdominal pathology. I independently interpreted x-ray prior to the radiologist read and noted moderate stool burden without obstructive process. Please see their read for final interpretation. Labs were obtained that demonstrated urine is concerning for possible infection. Is contaminated with squamous cells, but given that she complains of dysuria and urinary frequency will treat as urinary tract infection with Macrobid. On reassessment, patient is resting comfortably with benign abdominal exam. I feel that she is appropriate for discharge home with bowel cleanout and antibiotic for UTI. I offered her enema here, however she declined. She was discharged with prescription for enema, MiraLAX, senna, and Macrobid. Strict return precautions and discharged for close outpatient follow-up given Critical Care Critical Care Time Critical Care Time: No
[2025-03-08 12:00] VITALS: BP 118/83; PULSE 67; O2SAT 97
[2025-03-08 12:30] VITALS: BP 132/84; PULSE 64; O2SAT 97
[2025-03-08 12:44] LABS: Microscopic, Urine URINE MICROSCOPIC (MICROSCOPIC)
[2025-03-08 12:46] LABS: Appearance,Urine SL CLOUDY (Clear); Bilirubin,Urine Negative (Negative); Blood, Urine Negative (Negative); Color,Urine YELLOW (Yellow); Glucose,Urine (UA) Negative (Negative); Ketones,Urine Negative (Negative); Leukocyte Esterase,Urine 1+ (Negative); Nitrate,Urine Negative (Negative); PH,Urine 6.5 (5.0-8.5); Protein,Urine Negative (Negative); Specific Gravity, Urine 1.025 (1.005-1.030)
[2025-03-08 12:48] VITALS: BP 132/84
[2025-03-08 13:21] LABS: Bacteria,Urine 1+ /lpf
[2025-03-08 13:37] VITALS: BP 132/84; PULSE 64; RESP 16; TEMP 36.7
== END 2025-03-08 13:41 | disposition home or self-care (01) ==
PROVIDERS: Emergency Provider Emergency Medicine; PCP Nurse Practitioner Family
DX: N39.0 Urinary tract infection, site not specified (principal); R30.0 Dysuria; K59.00 Constipation, unspecified
CPT/HCPCS: 74018; 81001; 87086; 99283

== ENCOUNTER 2025-03-15 12:54 | Outpatient (RCR) | payer MEDICARE, MEDICAID, SELFPAY ==
--- NOTE | 2025-03-18 16:16 | HMH.SLAPHASI ---
Speech & Language Evaluation Speech/Language Aphasia Evaluation Start: 03/18/25 16:09 Freq: once Status: Complete Protocol: Document 03/15/25 13:09 VICK (Rec: 03/18/25 16:16 [id number] Aphasia Assessment/Goals/Plan Assessment Date of Evaluation: 03/15/25 Evaluation Type Initial Certification Assessment/Problems h/o CVA & multiple TIAs, expressive aphasia per MD order. Does Patient Qualify for Service Yes Qualify/Failure Comment Based on clinical observations , informal assessment results, and patient/caregiver interviews, Salena Dave would benefit from skilled speech therapy services 2x/week to address severe expressive aphasia, apraxia of speech, and executive function deficits in order to improve functional communication with others across multiple settings and environments. Plan Pt will be seen # times/week 2 for # weeks 12 Anticipate reaching STG in # weeks 8 Anticipate reaching LTG in # weeks 12 Pt/Guardian verbally ack understanding Yes of dx/prognosis/goals G -code Required No STG-Auditory Comprehension Sentence Level 90 Paragraph Level 75 3rd Element 75 STG-Reading Comprehension Matching Words to Pictures 90 Matching Printed Words to Spoken Words 75 Reading Sentences & Ans Questions 75 STG-Verbal Expressive Language Automatic Speech 60 Ground Support Agent Goals Increase auditory comprehension skills Yes: 90% to communicate w/family & friends Increase verbal expression skills to Yes: 65% with AAC communicate w/family & friends. Education Instructions provided Discussed assessment results, primary goals/concerns of patient, and POC with pt and her daughter both of which expressed understanding. Pt/Caregiver Able to Recall Information Able to recall/restate Reinforcement needed No Speech & Language HPI History Present Illness Description of Patient Problem 59-year-old female with history of left-sided CVA with residual expressive aphasia currently on Eliquis. PMH includes: 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, type 2 Heart failure, Hypertension, and Kidney disease. Pt/Caregiver Concerns Salena continues to report concerns of difficulty expressing her wants and needs , as well as thoughts and ideas, in an efficient, effective manner and wishes to become more independent with AAC device. She also expressed concerns for receptive comprehension/ability to follow conversations with others and word finding difficulties. Language Primary Language Turkmen Aphasia Evaluations Communication Speech Intelligibility Salena is severely aphasic with apraxia of speech. She presents with overgeneralization of speech, anomia, groping tendencies, and word finding errors. She is unable to imitate single phonemes, inconsistent in her facial expressions, and depends on caregivers to communicate. The majority of her intelligibility is context dependent with max assist from . She is able to answer simple yes/no questions and able to communicate on broad topics when prompts/cues are given. Auditory Comprehension Yes: Word Level Sentences No: Following Directions Paragraph Conversation AC Comment At times, Salena has difficulty understanding more complex topics within a conversation, but is able to express that she requires rephrasing and/or repetitions to understand. She is able to complete some simple 1-2 step commands, however, more complex directional tasks appear to be difficult for her e.g. complex body parts identification or embedded concepts in a multistep direction. Reading Comprehension Yes: Letter Naming No: Word Naming Sentences Paragraphs Verbal Expressive Language No: Automatic Speech Completing Sentences Repetition Abilities Word Level Naming HARLAN Comment Severely aphasic. She is able to count from 1-10 and sing happy birthday, but was only able to complete 14% of days of the week with max assist. Completing simple sentences were inconsistent as she was able to complete with 10% accuracy but states whole phrase of hot and cold. Written Language Yes: Signature WL Comment She is noted to be able to write first name and last name 's first initial only. She requires 1:1 prompts and models to imitate simple shapes. AOM Comment She is aware she is able to answer orientation questions on device, but expressively is only able to answer with her first name when asked orientation questions, all others are hard or I don't know. Additional Evaluation(s) Additional Tests Salena was presented with the QAB, Quick Aphasia Battery, ASSOCIATE FINANCIAL ANALYST pulled following information from previous assessment as she is still presenting with similar concerns; Ms. Salena Dave was administered the QAB ( Quick Aphasia Battery) at this date. The Quick Aphasia Battery (QAB) is made up of eight subtests, each comprising sets of items that probe different language domains, vary in difficulty, and are scored with a graded system to maximize the informativeness of each item. From the eight subtests, eight summary measures are derived, which constitute a multidimensional profile of language function, quantifying strengths and weaknesses across core language domains. Salena's scores were as follows : Word Comprehension: 8.75, mild to no aphasia Sentence Comprehension: 3.75, severe aphasia Word Findin.75, severe aphasia Grammatical Construction: 4.5, severe aphasia Speech Motor Programmin.5, severe aphasia Repetition: 0, severe aphasia Readin, severe aphasia QAB Overall: 3.69, severe aphasia Salena had strengths in her ability to communicate her needs when provided with a field of two options and ability to identify desired word. However, when context is unknown or in an unstructured environment, she will be presented with high level difficulty obstacles 2' her anomia, empty speech, and significant paraphasias across her expressive aphasia deficit. She was unable to independently answer most questions throughout the assessment and was unable to imitate simple CVC words. She had difficulty following complex commands, and required repetitions of simple 2-3 step commands. Secondary to her aphasia connected speech impairment Salena's communicatiion is limited in which she is unable to take part in everyday topics 2' deficits found across the assessment. She had strengths in single word comprehension and receptive identification. However, complex yes/no questions were found to be difficulty for her. She was unable to expressively ID everyday objects. Based on these observations, she would benefit from skilled speech therapy services to improve her expressive language skills . At this date, Salena was given the DAGG-2, [employer] Dynamic AAC Goals Grid, to assess target skills and strengths with Salena's recently introduced AAC device . She was also given an informal cognitive-linguistic evaluation to assess her expressive-receptive language skills and executive function skills. Salena reports that she is currently not using her device 2' feeling uncomfortable using it efficiently and nobody helping her in the home environment. Pt currently keeps AAC in box in home environment with less than 20% use device. She presents as a context- dependent in understanding given current state of receptive language skills as Salena has difficulty with complex yes/no questions and following simple multistep directions. When given her AAC she demonstrates the ability to identify photos and picture symbols representing objects or things, and has some understanding of more abstract ideas. However, she continues to require moderate prompting to use in appropriate manner. Her expressive language remains as emergent transitional given her severe expressive aphasia. Socially, Salena presents as a transitionally independent communicator as she has clear intentions with her communication attempts and at times is able to answer routine based questions with a yes/no if asked in a simple manner. However, this skill is currently not carried over to her AAC use. Following her stroke, Salena's literacy skills are complex as in certain contexts she is able to interpret messages, however , she is unable to read multiple paragraphs and is unable to identify various words or letters. Given this information, she presents as an emergent AAC communicator as she is inconsistent in her use and benefits from max assist from communication partners in her communication overall. Her competency levels of her AAC device at this time are as follows: Linguistic Competency: emergent transitional, she is able to use single icons in routine contexts to communicate. Operational Competency: emergent, she requires max to 1:1 prompting to navigate to areas of her device, and has minimal understanding of layout or navigational skills. Social Compentency: context- dependent, she is aware that device is able to be used in structured environments, however, requires assistance to navigate to these areas, and at times (per patient report), it is too much trouble to speak or communicate her intent. PHYSICIAN CERTIFICATION: I certify the specified therapy services for Salena Dave are required, authorized, and reviewed every 30 days.
== END 2025-03-15 23:59 | disposition home or self-care (01) ==
LOC: ST 12:54
PROVIDERS: Visit Provider Nurse Practitioner Family
DX: R47.01 Aphasia (principal); Z86.73 Personal history of transient ischemic attack (TIA), and cerebral infarction without residual deficits
CPT/HCPCS: 92523

== ENCOUNTER 2025-03-17 14:26 | Outpatient (CLI) | payer MEDICARE, MEDICAID, SELFPAY ==
[2025-03-17 13:47] LABS: Microscopic, Urine URINE MICROSCOPIC (MICROSCOPIC)
[2025-03-17 14:30] LABS: Appearance,Urine CLEAR (Clear); Bilirubin,Urine Negative (Negative); Blood, Urine Negative (Negative); Color,Urine YELLOW (Yellow); Glucose,Urine (UA) Negative (Negative); Ketones,Urine Negative (Negative); Leukocyte Esterase,Urine 1+ (Negative); Nitrate,Urine Negative (Negative); Protein,Urine Negative (Negative); Specific Gravity, Urine >= 1.030 (1.005-1.030); Urobilinogen,Urine 0.2 EU/dl (0.2)
[2025-03-17 14:34] LABS: Hemoglobin A1C 6.5 % (4.0-6.0)
[2025-03-17 14:43] LABS: Bacteria,Urine 2+ /lpf
[2025-03-17 15:10] LABS: Chloride 106 mmol/L (98-107); Potassium 5.3 mmoL/L (3.5-5.1); Sodium 140 mmol/L (136-145)
[2025-03-17 15:13] LABS: Anion Gap 14.3 mEq/L (5-15); Blood Urea Nitrogen 19 mg/dl (7-17); Calcium 9.4 mg/dl (8.4-10.2); Carbon Dioxide 25 mmol/L (22.0-30.0); Estimated Glomerular Filt Rate 64 ml/min (>60); GFR (African American) 78 ML/MIN (>60); Glucose 138 mg/dl (74-100)
[2025-03-17 15:42] LABS: Free T4 (Free Thyroxine) 0.97 ng/dl (0.78-2.19)
[2025-03-17 15:45] LABS: Thyroid Stimulating Hormone 3.79 uIU/mL (0.465-4.68)
== END 2025-03-17 23:59 | disposition home or self-care (01) ==
LOC: LAB.DROPOF 14:27
PROVIDERS: PCP Nurse Practitioner Family; Visit Provider Nurse Practitioner Family
DX: B35.3 Tinea pedis (principal); E03.9 Hypothyroidism, unspecified; E11.40 Type 2 diabetes mellitus with diabetic neuropathy, unspecified; Z79.4 Long term (current) use of insulin; N28.9 Disorder of kidney and ureter, unspecified; I10 Essential (primary) hypertension; G47.33 Obstructive sleep apnea (adult) (pediatric); F17.200 Nicotine dependence, unspecified, uncomplicated
CPT/HCPCS: 80048; 81001; 83036; 84439; 84443; 87086

== ENCOUNTER 2025-04-05 10:00 | Outpatient (RCR) | payer MEDICARE, MEDICAID, SELFPAY | END 2025-04-05 23:59 | disposition home or self-care (01) | LOC: ST 10:00 | PROVIDERS: Visit Provider Nurse Practitioner Family | DX: I69.30 Unspecified sequelae of cerebral infarction (principal); R47.01 Aphasia | CPT/HCPCS: 92507 ==